=== PATIENT | male | born 1965 | race Caucasian/White ===

== ENCOUNTER → 2016-09-15 | Outpatient (CLI) | payer BC ==
--- NOTE | 2016-09-15 12:54 | XR ---
EXAMINATION TYPE: XR foot complete bilateral DATE OF EXAM ORDERED: 09/15/2016 HISTORY: pain R52. COMPARISON: None. FINDINGS: There are minimal degenerative changes in the left first MTP joint. No fracture, dislocati on or other acute osseous lesion is seen. There are small Achilles spur seen arising from both calcan ei. No significant vascular calcification is seen. IMPRESSION: 1. NO ACUTE OSSEOUS LESION. 2. MINIMAL DEGENERATIVE CHANGE. 3. SMALL, BILATERAL ACHILLES SPURS.
== END | disposition home or self-care (01) ==
LOC: RADXRMAIN 11:57
PROVIDERS: ATTEND Family Medicine
DX: M77.51 Other enthesopathy of right foot and ankle (principal); M77.52 Other enthesopathy of left foot and ankle; M79.672 Pain in left foot

== ENCOUNTER 2017-02-12 08:15 | Day surgery (SDC) | payer BC ==
[2017-02-09 11:21] VITALS: BMI 32.1
[~2017-02-12 08:15] MED LIST: LACTATED RINGERS 1,000 ML IV SCH
[2017-02-12 08:36] VITALS: TEMP 97.8
[2017-02-12] MEDS ORDERED: LIDOCAINE 1% 20 ML VIAL (10MG/ML) FOR IV START INTRADERMA ONE (08:49)
[2017-02-12] MEDS ORDERED: PROPOFOL 10 MG/ML 20 ML VIAL IV ONE (08:52)
[2017-02-12] MEDS ORDERED: LIDOCAINE 1% INJ 10MG/ML (20 ML MDV) ONE (08:52)
[2017-02-12 08:55] LABS: Glucose,Whole Blood 171 mg/dL (75-99)
--- NOTE | 2017-02-12 08:55 | P.GSHP ---
History of Present Illness H&P Date: 02/12/17 Chief Complaint: Colon cancer screening Patient here today for colonoscopy. He has not had one previously. No bowel related complaints. No family history of colon cancer Past Medical History Past Medical History: Diabetes Mellitus, GERD/Reflux History of Any Multi-Drug Resistant Organisms: None Reported Past Surgical History: No Surgical Hx Reported Additional Past Surgical History / Comment(s): skin graft Past Anesthesia/Blood Transfusion Reactions: No Reported Reaction Smoking Status: Never smoker - Past Family History Father Family Medical History: Cancer Sister(s) Family Medical History: Cancer Medications and Allergies Home Medications Medication Instructions Recorded Confirmed Type Insulin Aspart [NovoLOG Flexpen] 11 unit SQ PC-TID 12/02/15 02/12/17 History Pantoprazole [Protonix] 1 tab PO DAILY 12/02/15 02/12/17 History Insulin Degludec [Tresiba 32 units INJ QAM 02/09/17 02/12/17 History Flextouch U-100] metFORMIN HCL ER [Glucophage Xr] 500 mg PO DAILY 02/09/17 02/12/17 History Allergies Allergy/AdvReac Type Severity Reaction Status Date / Time No Known Allergies Allergy Verified 02/12/17 08:40 Surgical - Exam Vital Signs Temp Pulse Resp BP Pulse Ox 97.8 F 72 16 130/81 94 L 02/12/17 08:34 02/12/17 08:34 02/12/17 08:34 02/12/17 08:34 02/12/17 08:34 Physical exam: General: Well-developed, well-nourished HEENT: Normocephalic, sclerae nonicteric Abdomen: Nontender, nondistended Extremities: No edema Neuro: Alert and oriented Assessment and Plan (1) Colon cancer screening Narrative/Plan: Will proceed with colonoscopy at this time Current Visit: Yes Status: Acute Code(s): Z12.11 - ENCOUNTER FOR SCREENING FOR MALIGNANT NEOPLASM OF COLON SNOMED Code(s): 702395999
[2017-02-12] MEDS ORDERED: LACTATED RINGERS 1,000 ML IV ONE (09:09)
[2017-02-12 09:10] VITALS: RESP 15
[2017-02-12 09:15] LABS: Glucose,Whole Blood 175 mg/dL (75-99)
[2017-02-12 09:20] VITALS: BP 124/88; PULSE 84
--- NOTE | 2017-02-12 09:22 | P.PCN ---
Date of Procedure: 02/12/17 Procedure(s) Performed: PREOPERATIVE DIAGNOSIS: Colon cancer screening POSTOPERATIVE DIAGNOSIS: Normal exam PROCEDURE: Colonoscopy ANESTHESIA: MAC SURGEON: Hollis Alexandre M.D. SPECIMENS: None ENDOSCOPIC PROCEDURE: The patient was placed on the endoscopy table in the left decubitus position. The Olympus colonoscope was inserted into the anus and passed under direct visualization to the base of the cecum. The appendiceal orifice was visualized. From that point the scope was slowly withdrawn inspecting all surfaces carefully. There were no neoplastic inflammatory or polypoid lesions throughout the cecum, ascending, transverse, descending, sigmoid and rectum. There was no diverticulosis noted. Digital rectal examination was normal. The patient was taken to the recovery room in stable condition per anesthesia guidelines. RECOMMENDATIONS: Increase fiber. Follow-up colonoscopy in 10 years.
== END 2017-02-12 09:42 | disposition home or self-care (01) ==
LOC: ORWHC2ENDO 08:15
PROVIDERS: ATTEND Surgery
DX: Z12.11 Encounter for screening for malignant neoplasm of colon (principal); E11.9 Type 2 diabetes mellitus without complications; K21.9 Gastro-esophageal reflux disease without esophagitis; Z79.4 Long term (current) use of insulin; Z79.899 Other long term (current) drug therapy
CPT/HCPCS: J2001; J2704; G0121; 45378

== ENCOUNTER 2019-10-05 07:17 | Day surgery (SDC) | payer BC ==
[2019-10-03 13:51] VITALS: BMI 30.7
[2019-10-05 07:39] VITALS: TEMP 97.6
[2019-10-05 07:47] LABS: Glucose,Whole Blood 169 mg/dL (75-99)
[2019-10-05] MEDS ORDERED: PROPOFOL 10 MG/ML 20 ML VIAL IV ONE (07:56)
[2019-10-05] MEDS ORDERED: fentaNYL (PF) 50 MCG/ML 2 ML AMP ONE (07:56)
[2019-10-05] MEDS ORDERED: MIDAZOLAM 2 MG/2 ML VIAL ONE (07:56)
--- NOTE | 2019-10-05 07:58 | P.GSHP ---
History of Present Illness H&P Date: 10/05/19 Chief Complaint: GERD This a 53-year-old male presents today for EGD. He's had issues with GERD. Past Medical History Past Medical History: Diabetes Mellitus, GERD/Reflux Additional Past Medical History / Comment(s): states "unable to clear throat" History of Any Multi-Drug Resistant Organisms: None Reported Past Surgical History: No Surgical Hx Reported Additional Past Surgical History / Comment(s): skin graft Past Anesthesia/Blood Transfusion Reactions: No Reported Reaction Additional Past Anesthesia/Blood Transfusion Reaction / Comment(s): no hx blood transfusion Smoking Status: Never smoker - Past Family History Father Family Medical History: Cancer Additional Family Medical History / Comment(s): skin Sister(s) Family Medical History: Cancer Additional Family Medical History / Comment(s): female Medications and Allergies Home Medications Medication Instructions Recorded Confirmed Type Pantoprazole [Protonix] 40 mg PO DAILY 12/02/15 10/05/19 History Insulin Degludec [Tresiba 32 units INJ QAM 02/09/17 10/05/19 History Flextouch U-100] metFORMIN HCL ER [Glucophage Xr] 500 mg PO BID 02/09/17 10/05/19 History Empagliflozin [Jardiance] 25 mg PO DAILY 10/03/19 10/05/19 History Allergies Allergy/AdvReac Type Severity Reaction Status Date / Time No Known Allergies Allergy Verified 10/05/19 07:34 Surgical - Exam Vital Signs Temp Pulse Resp BP Pulse Ox 97.6 F 81 16 152/97 95 10/05/19 07:27 10/05/19 07:27 10/05/19 07:27 10/05/19 07:27 10/05/19 07:27 - General well developed, well nourished, no distress - Eyes PERRL - ENT normal pinna - Neck no masses - Respiratory normal expansion - Cardiovascular Rhythm: regular - Abdomen Abdomen: soft, non tender Results - Labs Abnormal Lab Results - Last 24 Hours (Table) 10/05/19 Range/Units 07:43 POC Glucose (mg/dL) 169 H (75-99) mg/dL Assessment and Plan Assessment: GERD. We'll perform EGD.
--- NOTE | 2019-10-05 08:04 | P.OP ---
Date of Procedure: 10/05/19 Preoperative Diagnosis: GERD Postoperative Diagnosis: Antral gastritis Fundal polyp Minimal esophagitis Procedure(s) Performed: EGD Anesthesia: MAC Surgeon: Zac Serna Pathology: other (Antrum, fundal polyp, esophagus) Condition: stable Disposition: PACU Description of Procedure: The patient's placed on the endoscopy table in the lateral position. He received IV sedation. The gastroscope placed oropharynx and passed in the esophagus and stomach. Scope was placed through the pylorus. The first and second portion duodenum. Normal. Scope summer back the antrum this. Mildly inflamed. A biopsies performed. Scope was retroflexed and there were some benign-appearing polyps in the fundus. A polyp was biopsied.. The GE junction was at 40 cms. The distal esophagus appeared inflamed a biopsies performed. Proximal esophagus appeared normal. Scope withdrawn for patient.
[2019-10-05 08:09] LABS: Glucose,Whole Blood 164 mg/dL (75-99)
[2019-10-05 08:24] VITALS: BP 162/91; PULSE 77; RESP 18
== END 2019-10-05 08:40 | disposition home or self-care (01) ==
LOC: ORWHC2ENDO 07:17
PROVIDERS: ATTEND Surgery
DX: K29.50 Unspecified chronic gastritis without bleeding (principal); K31.7 Polyp of stomach and duodenum; K21.0 Gastro-esophageal reflux disease with esophagitis; E11.9 Type 2 diabetes mellitus without complications; Z80.8 Family history of malignant neoplasm of other organs or systems; Z79.84 Long term (current) use of oral hypoglycemic drugs; Z79.899 Other long term (current) drug therapy
CPT/HCPCS: 88305; 43239; J2250; J3010; J2704

== ENCOUNTER 2020-11-03 13:44 | Emergency (ER) | payer BC ==
[2020-11-03 13:48] VITALS: TEMP 97.8
[2020-11-03] MEDS ORDERED: ONDANSETRON 4 MG/2 ML VIAL IVP STA (14:04)
[2020-11-03] MEDS ORDERED: KETOROLAC 15 MG/ML 1 ML VIAL IVP STA (14:04)
[2020-11-03] MEDS ORDERED: SODIUM CHLORIDE 0.9% 1,000 ML IV STA (14:04)
--- NOTE | 2020-11-03 14:05 | ED ---
Abdominal Pain HPI - General Chief Complaint: Abdominal Pain Stated Complaint: Back Pain Time Seen by Provider: 11/03/20 13:50 Source: patient, RN notes reviewed Mode of arrival: ambulatory Limitations: no limitations - History of Present Illness Initial Comments: Patient is a 54-year-old male that presents to the emergency department complaining of right flank pain with radiation to his groin. He also noted that he was checking his testicles this morning when he thought that his right one was slightly larger than his left one. He noted that he does have a history of kidney stones but has not had any in a while. He denied any injury or trauma to his low back. He denied any other symptoms or complaints. He noted that his pain was approximate 78 out of 10 with no relief from at home medications. He denied any chest pain shortness of breath constipation diarrhea fever fatigue chills. - Related Data Home Medications Medication Instructions Recorded Confirmed Pantoprazole [Protonix] 40 mg PO DAILY 12/02/15 10/05/19 Insulin Degludec [Tresiba 32 units INJ QAM 02/09/17 10/05/19 Flextouch U-100] metFORMIN HCL ER [Glucophage Xr] 500 mg PO BID 02/09/17 10/05/19 Empagliflozin [Jardiance] 25 mg PO DAILY 10/03/19 10/05/19 Allergies Allergy/AdvReac Type Severity Reaction Status Date / Time No Known Allergies Allergy Verified 11/03/20 13:46 Review of Systems ROS Statement: Those systems with pertinent positive or pertinent negative responses have been documented in the HPI. ROS Other: All systems not noted in ROS Statement are negative. Past Medical History Past Medical History: Diabetes Mellitus, GERD/Reflux Additional Past Medical History / Comment(s): states "unable to clear throat" History of Any Multi-Drug Resistant Organisms: None Reported Past Surgical History: No Surgical Hx Reported Additional Past Surgical History / Comment(s): skin graft Past Anesthesia/Blood Transfusion Reactions: No Reported Reaction Additional Past Anesthesia/Blood Transfusion Reaction / Comment(s): no hx blood transfusion Past Psychological History: No Psychological Hx Reported Smoking Status: Never smoker Past Alcohol Use History: Daily Past Drug Use History: None Reported - Past Family History Father Family Medical History: Cancer Additional Family Medical History / Comment(s): skin Sister(s) Family Medical History: Cancer Additional Family Medical History / Comment(s): female General Exam Limitations: no limitations General appearance: alert, in no apparent distress Head exam: Present: atraumatic, normocephalic, normal inspection Eye exam: Present: normal appearance, PERRL, EOMI. Absent: scleral icterus, conjunctival injection, periorbital swelling Neck exam: Present: normal inspection Respiratory exam: Present: normal lung sounds bilaterally. Absent: respiratory distress, wheezes, rales, rhonchi, stridor Cardiovascular Exam: Present: regular rate, normal rhythm, normal heart sounds. Absent: systolic murmur, diastolic murmur, rubs, gallop, clicks GI/Abdominal exam: Present: soft, normal bowel sounds. Absent: distended, tenderness, guarding, rebound, rigid exam: Present: normal inspection, circumcision. Absent: testicular tenderness, urethral discharge, scrotal swelling Extremities exam: Present: normal inspection, full ROM, normal capillary refill. Absent: tenderness, pedal edema, joint swelling, calf tenderness Neurological exam: Present: alert, oriented X3 Psychiatric exam: Present: normal affect, normal mood Skin exam: Present: warm, dry, intact, normal color. Absent: rash Course Vital Signs 11/03/20 11/03/20 13:46 16:42 Temperature 97.8 F Pulse Rate 98 76 Respiratory 16 20 Rate Blood Pressure 181/94 156/87 O2 Sat by Pulse 97 96 Oximetry Medical Decision Making - Medical Decision Making 34-year-old male complaining of right flank pain with some radiation to his groin. Labs, 1 L normal saline, 4 mg of Zofran, 50 mg of Toradol ordered. CT the abdomen and pelvis, scrotal ultrasound ordered. Computed tomography scan and scrotal ultrasound negative for any acute process. Labs unremarkable. Case discussed with Dr. Bautista, patient can discharge home with follow-up primary care. - Lab Data Result diagrams: 11/03/20 14:06 11/03/20 14:06 Lab Results 11/03/20 11/03/20 11/03/20 Range/Units 14:06 14:06 14:06 WBC 8.6 (3.8-10.6) k/uL RBC 4.84 (4.30-5.90) m/uL Hgb 16.8 (13.0-17.5) gm/dL Hct 46.1 (39.0-53.0) % MCV 95.1 (80.0-100.0) fL MCH 34.8 (25.0-35.0) pg MCHC 36.5 (31.0-37.0) g/dL RDW 12.3 (11.5-15.5) % Plt Count 203 (150-450) k/uL MPV 7.4 Neutrophils % 71 % Lymphocytes % 22 % Monocytes % 4 % Eosinophils % 2 % Basophils % 1 % Neutrophils # 6.1 (1.3-7.7) k/uL Lymphocytes # 1.9 (1.0-4.8) k/uL Monocytes # 0.3 (0-1.0) k/uL Eosinophils # 0.2 (0-0.7) k/uL Basophils # 0.1 (0-0.2) k/uL Hyperchromasia Slight Sodium 133 L (137-145) mmol/L Potassium 4.2 (3.5-5.1) mmol/L Chloride 99 (98-107) mmol/L Carbon Dioxide 25 (22-30) mmol/L Anion Gap 9 mmol/L BUN 12 (9-20) mg/dL Creatinine 0.77 (0.66-1.25) mg/dL Est GFR (CKD-EPI)AfAm >90 (>60 ml/min/1.73 sqM) Est GFR (CKD-EPI)NonAf >90 (>60 ml/min/1.73 sqM) Glucose 337 H (74-99) mg/dL Calcium 9.0 (8.4-10.2) mg/dL Total Bilirubin 0.6 (0.2-1.3) mg/dL AST 24 (17-59) U/L ALT 19 (4-49) U/L Alkaline Phosphatase 131 H (38-126) U/L Total Protein 6.7 (6.3-8.2) g/dL Albumin 4.0 (3.5-5.0) g/dL Amylase 60 (30-110) U/L Lipase 171 (23-300) U/L Urine Color Light Yellow Urine Appearance Clear (Clear) Urine pH 5.0 (5.0-8.0) Ur Specific [place] 1.031 (1.001-1.035) Urine Protein Negative (Negative) Urine Glucose (UA) 4+ H (Negative) Urine Ketones Negative (Negative) Urine Blood Negative (Negative) Urine Nitrite Negative (Negative) Urine Bilirubin Negative (Negative) Urine Urobilinogen <2.0 (<2.0) mg/dL Ur Leukocyte Esterase Negative (Negative) - Radiology Data Radiology results: report reviewed, image reviewed Scrotal ultrasound: No testicular torsion or mass. No free fluid. CT of the abdomen and pelvis: Negative computed tomography scan of the abdomen and pelvis per minimal subsegmental atelectasis at the lung bases. Disposition Clinical Impression: Flank pain, Right testicular pain Disposition: HOME SELF-CARE Condition: Stable Instructions (If sedation given, give patient instructions): Abdominal Pain (ED) Additional Instructions: Please return to the Emergency Department if symptoms worsen or any other concerns. Follow-up with primary care in the next 1-2 days. Increase oral fluids take ibuprofen as needed for pain. For any potential stones that did not show up on computed tomography scan. Is patient prescribed a controlled substance at d/c from ED?: No Referrals: Bebo Kennedy MD [Primary Care Provider] - 1-2 days Time of Disposition: 17:04
[2020-11-03 14:19] LABS: Basophils # (A) 0.1 k/uL (0-0.2); Basophils % (A) 1 %; Eosinophils # (A) 0.2 k/uL (0-0.7); Eosinophils % (A) 2 %; HCT 46.1 % (39.0-53.0); HGB 16.8 gm/dL (13.0-17.5); Hyperchromasia Slight; Lymphocytes # (A) 1.9 k/uL (1.0-4.8); Lymphocytes % (A) 22 %; MCH 34.8 pg (25.0-35.0); MCHC 36.5 g/dL (31.0-37.0); MCV 95.1 fL (80.0-100.0); Mean Platelet Volume 7.4; Monocytes # (A) 0.3 k/uL (0-1.0); Monocytes % (A) 4 %; Neutrophils # (A) 6.1 k/uL (1.3-7.7); Neutrophils % (A) 71 %; Platelet Count 203 k/uL (150-450); RBC 4.84 m/uL (4.30-5.90); RDW 12.3 % (11.5-15.5); WBC 8.6 k/uL (3.8-10.6)
[2020-11-03 14:28] LABS: ALT 19 U/L (4-49); AST 24 U/L (17-59); African American GFR (CKD) >90 (>60 ml/min/1.73 sqM); Alkaline Phosphatase 131 U/L (38-126); Amylase 60 U/L (30-110); Anion Gap 9 mmol/L; Blood Urea Nitrogen 12 mg/dL (9-20); Carbon Dioxide 25 mmol/L (22-30); Chloride 99 mmol/L (98-107); Glucose 337 mg/dL (74-99); Lipase 171 U/L (23-300); Non-African American GFR(CKD) >90 (>60 ml/min/1.73 sqM); Potassium 4.2 mmol/L (3.5-5.1); Sodium 133 mmol/L (137-145); Total Bilirubin 0.6 mg/dL (0.2-1.3); Total Protein 6.7 g/dL (6.3-8.2)
[2020-11-03 14:35] LABS: Appearance,Urine Clear (Clear); Bilirubin,Urine Negative (Negative); Blood,Urine Negative (Negative); Color,Urine Light Yellow; Glucose,Urine (UA) 4+ (Negative); Ketones,Urine Negative (Negative); Leukocyte Esterase,Urine Negative (Negative); Nitrite,Urine Negative (Negative); Protein,Urine Negative (Negative); Specific Gravity,Urine 1.031 (1.001-1.035); Urobilinogen,Urine <2.0 mg/dL (<2.0)
--- NOTE | 2020-11-03 15:58 | CT ---
EXAMINATION TYPE: CT abdomen pelvis w con DATE OF EXAM: 11/03/2020 COMPARISON: None HISTORY: Right flank pain. CT DLP: 1406.6 mGycm Automated exposure control for dose reduction was used. CONTRAST: Performed with IV Contrast, patient injected with 100 mL of Isovue 300. Images obtained from the diaphragm to the floor the pelvis with IV contrast. The lung bases show minimal subsegmental atelectasis. Heart size is normal. There is no pericardial e ffusion. Liver spleen stomach pancreas gallbladder appear normal. The bile ducts are not dilated. There is no adrenal mass. Kidneys show satisfactory contrast opacification. There is no hydronephrosi s. There is no retroperitoneal adenopathy. Ureters are not dilated. There is smooth distention of the urinary bladder. There is no inguinal hernia. There is no free fluid in the pelvis. There is no evid ence of pelvic mass. There is no mesenteric edema. There is no ascites or free air. There is no sign of a bowel obstructio n. Appendix is lateral and appears normal. The lumbar vertebra have normal alignment. Disc spaces are fairly normal. Posterior elements are inta ct. There is no compression fracture. The bony pelvis is intact. The hip joints are intact. There is no hip dysplasia. Delayed images show normal renal excretion. IMPRESSION: Negative CT scan of the abdomen and pelvis. Minimal subsegmental atelectasis at the lung bases.
--- NOTE | 2020-11-03 16:42 | US ---
EXAMINATION TYPE: US scrotum with doppler. Grayscale and color Doppler Duplex imaging performed of domingo mulligan scrotum. DATE OF EXAM: 11/03/2020 COMPARISON: CLINICAL HISTORY: right testicle pain, minimal swelling. Right flank pain that radiates to testicle. No injury or trauma. EXAM MEASUREMENTS: TESTICLES: Right Testicle: 3.6 x 4.4 x 2.5 cm Left Testicle: 4.3 x 3.5 x 2.2 cm EPIDIDYMIS HEAD: Right Epididymis: 1.1 x 0.8 x 0.8 cm Left Epididymis: 1.2 x 1.1 x 0.7 cm Doppler performed to assess for testicular vascularity; good bilateral color flow and waveforms are s een. There is no evidence of testicular torsion. Presence of hydroceles: no Presence of varicoceles: few on the right IMPRESSION: No testicular torsion or mass. No free fluid.
[2020-11-03 16:43] VITALS: BP 156/87; PULSE 76; RESP 20
[2020-11-03] MEDS ORDERED: MORPHINE SULFATE 4 MG/ML SYRINGE IVP STA (17:07)
== END 2020-11-03 17:18 | disposition home or self-care (01) ==
LOC: EC 13:44
DX: N50.811 Right testicular pain (principal); R10.9 Unspecified abdominal pain; K21.9 Gastro-esophageal reflux disease without esophagitis; Z79.899 Other long term (current) drug therapy
CPT/HCPCS: 36415; 80053; 82150; 83690; 85025; 81003; 93975; 76870; 74177; 99284; 96374; 96375; 96361; J2270; J2405; J1885; Q9967

== ENCOUNTER 2021-05-02 07:00 | Inpatient (IN) | payer BC ==
[2021-05-02] MEDS ORDERED: SODIUM CHLORIDE 0.9% 1,000 ML IV STA (07:29)
[2021-05-02] MEDS ORDERED: SODIUM CHLORIDE 0.9% 500 ML 500 ML IV STA (07:29)
[2021-05-02] MEDS ORDERED: HYDROmorphone 0.5 MG/0.5 ML SYRINGE IVP STA (07:29)
[2021-05-02] MEDS ORDERED: hydrALAZINE HCL 20 MG/ML 1 ML VIAL IVP STA (07:34)
[2021-05-02 08:04] LABS: Basophils % (A) 0 %; Eosinophils # (A) 0.3 k/uL (0-0.7); Eosinophils % (A) 3 %; HCT 50.8 % (39.0-53.0); HGB 17.6 gm/dL (13.0-17.5); Lymphocytes # (A) 1.4 k/uL (1.0-4.8); Lymphocytes % (A) 17 %; MCH 34.9 pg (25.0-35.0); MCHC 34.7 g/dL (31.0-37.0); MCV 100.5 fL (80.0-100.0); Mean Platelet Volume 7.3; Monocytes # (A) 0.4 k/uL (0-1.0); Monocytes % (A) 4 %; Neutrophils # (A) 6.3 k/uL (1.3-7.7); Neutrophils % (A) 75 %; Platelet Count 167 k/uL (150-450); RBC 5.05 m/uL (4.30-5.90); RDW 13.2 % (11.5-15.5); WBC 8.4 k/uL (3.8-10.6)
[2021-05-02 08:14] LABS: ALT 17 U/L (4-49); AST 22 U/L (17-59); African American GFR (CKD) >90 (>60 ml/min/1.73 sqM); Albumin 4.3 g/dL (3.5-5.0); Alcohol <10 mg/dL; Alkaline Phosphatase 120 U/L (38-126); Amylase 102 U/L (30-110); Anion Gap 8 mmol/L; Blood Urea Nitrogen 15 mg/dL (9-20); Calcium 9.4 mg/dL (8.4-10.2); Carbon Dioxide 26 mmol/L (22-30); Chloride 101 mmol/L (98-107); Glucose 160 mg/dL (74-99); Lipase 798 U/L (23-300); Non-African American GFR(CKD) >90 (>60 ml/min/1.73 sqM); Potassium 4.2 mmol/L (3.5-5.1); Sodium 135 mmol/L (137-145); Total Bilirubin 1.6 mg/dL (0.2-1.3); Total Protein 7.5 g/dL (6.3-8.2)
--- NOTE | 2021-05-02 08:20 | XR ---
KUB HISTORY: Abdominal pain Frontal KUB and [address] scan dated 11/03/2020 There are phleboliths present within the pelvis. No evident bowel obstruction or pneumoperitoneum. Rambo ne mineralization is normal. Lung bases are clear. Degenerative disc changes are noted in the visuali zed spine. IMPRESSION: No significant abnormalities evident.
--- NOTE | 2021-05-02 08:40 | ED ---
General Adult HPI - General Chief complaint: Abdominal Pain Stated complaint: Abd Pain Time Seen by Provider: 05/02/21 07:05 Source: patient, RN notes reviewed, old records reviewed Mode of arrival: ambulatory Limitations: no limitations - History of Present Illness Initial comments: This is a 55-year-old male who presents emergency department stating that he has epigastric abdominal pain which radiates to his back. Patient states he has had pancreatitis before because he is a drinker. Patient states she has been drinking much more lately. Patient states she doesn't really have a reason for his increased drinking he just is drinking more. Patient states his last drink was yesterday. Patient denies any chest pain difficulty breathing shortness of breath. Patient denies any recent fever chills or cough per patient denies any vomiting per patient denies nausea patient patient denies lightheadedness or dizziness. Patient denies any headache patient denies numbness weakness. - Related Data Home Medications Medication Instructions Recorded Confirmed Pantoprazole [Protonix] 40 mg PO DAILY 12/02/15 10/05/19 Insulin Degludec [Tresiba 32 units INJ QAM 02/09/17 10/05/19 Flextouch U-100] metFORMIN HCL ER [Glucophage Xr] 500 mg PO BID 02/09/17 10/05/19 Empagliflozin [Jardiance] 25 mg PO DAILY 10/03/19 10/05/19 Allergies Allergy/AdvReac Type Severity Reaction Status Date / Time No Known Allergies Allergy Verified 05/02/21 07:06 Review of Systems ROS Statement: Those systems with pertinent positive or pertinent negative responses have been documented in the HPI. ROS Other: All systems not noted in ROS Statement are negative. Past Medical History Past Medical History: Diabetes Mellitus, GERD/Reflux Additional Past Medical History / Comment(s): states "unable to clear throat" History of Any Multi-Drug Resistant Organisms: None Reported Past Surgical History: No Surgical Hx Reported Additional Past Surgical History / Comment(s): skin graft Past Anesthesia/Blood Transfusion Reactions: No Reported Reaction Additional Past Anesthesia/Blood Transfusion Reaction / Comment(s): no hx blood transfusion Past Psychological History: No Psychological Hx Reported Smoking Status: Never smoker Past Alcohol Use History: Daily Past Drug Use History: None Reported - Past Family History Father Family Medical History: Cancer Additional Family Medical History / Comment(s): skin Sister(s) Family Medical History: Cancer Additional Family Medical History / Comment(s): female General Exam - General Exam Comments Initial Comments: GENERAL: Patient is well-developed and well-nourished. Patient is nontoxic and well- hydrated and is in mild distress. ENT: Neck is soft and supple. No significant lymphadenopathy is noted. Oropharynx is clear. Moist mucous membranes. Neck has full range of motion without eliciting any pain. EYES: The sclera were anicteric and conjunctiva were pink and moist. Extraocular movements were intact and pupils were equal round and reactive to light. Eyelids were unremarkable. PULMONARY: Unlabored respirations. Good breath sounds bilaterally. No audible rales rhonchi or wheezing was noted. CARDIOVASCULAR: There is a regular rate and rhythm without any murmurs gallops or rubs. ABDOMEN: Patient has epigastric abdominal pain SKIN: Skin is clear with no lesions or rashes and otherwise unremarkable. NEUROLOGIC: Patient is alert and oriented x3. Cranial nerves II through XII are grossly intact. Motor and sensory are also intact. Normal speech, volume and content. Symmetrical smile. MUSCULOSKELETAL: Normal extremities with adequate strength and full range of motion. No lower extremity swelling or edema. No calf tenderness. LYMPHATICS: No significant lymphadenopathy is noted PSYCHIATRIC: Normal psychiatric evaluation. Limitations: no limitations Course Vital Signs 05/02/21 05/02/21 05/02/21 07:04 07:20 07:28 Temperature 98.2 F 97.7 F Pulse Rate 72 99 Respiratory 20 14 Rate Blood Pressure 153/100 139/107 164/94 O2 Sat by Pulse 97 97 Oximetry 05/02/21 05/02/21 08:24 09:14 Temperature Pulse Rate 84 87 Respiratory 16 Rate Blood Pressure 157/116 115/70 O2 Sat by Pulse 98 100 Oximetry Medical Decision Making - Medical Decision Making EKG shows normal sinus rhythm at 86 bpm [place] interval 150 QRS is 82 QT interval 364 QTC is 435 per patient's EKG shows no ST segment elevation or depression. I spoke with Dr. Kennedy and he agreed to admit the patient admitted the patient wrote admitting orders. - Lab Data Result diagrams: 05/02/21 07:47 05/02/21 07:47 Lab Results 05/02/21 05/02/21 05/02/21 Range/Units 07:47 07:47 07:55 WBC 8.4 (3.8-10.6) k/uL RBC 5.05 (4.30-5.90) m/uL Hgb 17.6 H (13.0-17.5) gm/dL Hct 50.8 (39.0-53.0) % MCV 100.5 H (80.0-100.0) fL MCH 34.9 (25.0-35.0) pg MCHC 34.7 (31.0-37.0) g/dL RDW 13.2 (11.5-15.5) % Plt Count 167 (150-450) k/uL MPV 7.3 Neutrophils % 75 % Lymphocytes % 17 % Monocytes % 4 % Eosinophils % 3 % Basophils % 0 % Neutrophils # 6.3 (1.3-7.7) k/uL Lymphocytes # 1.4 (1.0-4.8) k/uL Monocytes # 0.4 (0-1.0) k/uL Eosinophils # 0.3 (0-0.7) k/uL Basophils # 0.0 (0-0.2) k/uL Sodium 135 L (137-145) mmol/L Potassium 4.2 (3.5-5.1) mmol/L Chloride 101 (98-107) mmol/L Carbon Dioxide 26 (22-30) mmol/L Anion Gap 8 mmol/L BUN 15 (9-20) mg/dL Creatinine 0.86 (0.66-1.25) mg/dL Est GFR (CKD-EPI)AfAm >90 (>60 ml/min/1.73 sqM) Est GFR (CKD-EPI)NonAf >90 (>60 ml/min/1.73 sqM) Glucose 160 H (74-99) mg/dL Calcium 9.4 (8.4-10.2) mg/dL Total Bilirubin 1.6 H (0.2-1.3) mg/dL AST 22 (17-59) U/L ALT 17 (4-49) U/L Alkaline Phosphatase 120 (38-126) U/L Total Protein 7.5 (6.3-8.2) g/dL Albumin 4.3 (3.5-5.0) g/dL Amylase 102 (30-110) U/L Lipase 798 H (23-300) U/L Serum Alcohol <10 mg/dL Coronavirus (PCR) Not Detected (Not Detectd) Disposition Clinical Impression: Alcoholic pancreatitis Disposition: ADMITTED IP TO THIS HOSP Referrals: Bebo Kennedy MD [Primary Care Provider] - 1-2 days Time of Disposition: 10:13
[2021-05-02] MEDS ORDERED: SODIUM CHLORIDE 0.9% 1,000 ML IV ONE (10:13)
[2021-05-02 12:07] LABS: Appearance,Urine Clear (Clear); Bilirubin,Urine Negative (Negative); Blood,Urine Negative (Negative); Color,Urine Yellow; Glucose,Urine (UA) 4+ (Negative); Leukocyte Esterase,Urine Negative (Negative); Nitrite,Urine Negative (Negative); Protein,Urine Trace (Negative); Urobilinogen,Urine <2.0 mg/dL (<2.0)
[2021-05-02 12:23] LABS: Glucose,Whole Blood 97 mg/dL (75-99)
[2021-05-02 12:58] LABS: Specific Gravity,Urine 1.046 (1.001-1.035)
[2021-05-02 13:00] LABS: Ketones,Urine 2+ (Negative)
[2021-05-02] MEDS: HYDROmorphone 0.5 MG/0.5 ML SYRINGE IVP PRN ×2 (14:01→20:34)
[2021-05-02 17:29] LABS: Glucose,Whole Blood 56 mg/dL (75-99)
[2021-05-02] MEDS ORDERED: DEXTROSE 50% SYRINGE 50 ML IVP ONE ×2 (17:30→21:27)
[2021-05-02 17:55] LABS: Glucose,Whole Blood 131 mg/dL (75-99)
[2021-05-02 19:40] LABS: Glucose,Whole Blood 73 mg/dL (75-99)
[2021-05-02] MEDS: DEXTROSE 5%-0.9% NACL 1,000 ML IV SCH (20:30)
[2021-05-02 21:24] LABS: Glucose,Whole Blood 64 mg/dL (75-99)
[2021-05-02 21:57] LABS: Glucose,Whole Blood 142 mg/dL (75-99)
[2021-05-03 02:36] LABS: Glucose,Whole Blood 92 mg/dL (75-99)
[2021-05-03] MEDS: HYDROmorphone 0.5 MG/0.5 ML SYRINGE IVP PRN (02:58)
[2021-05-03 04:51] LABS: Glucose,Whole Blood 83 mg/dL (75-99)
[2021-05-03] MEDS: DEXTROSE 5%-0.9% NACL 1,000 ML IV SCH ×2 (07:13→17:32)
[2021-05-03 07:18] LABS: Glucose,Whole Blood 73 mg/dL (75-99)
[2021-05-03] MEDS ORDERED: DEXTROSE 50% SYRINGE 50 ML IVP STA (07:38)
[2021-05-03] MEDS: PANTOPRAZOLE 40 MG TABLET PO SCH (07:46)
[2021-05-03 11:03] LABS: Glucose,Whole Blood 78 mg/dL (75-99)
[2021-05-03 11:45] VITALS: BMI 29.9
[2021-05-03 12:06] LABS: Glucose,Whole Blood 85 mg/dL (75-99)
[2021-05-03] MEDS ORDERED: THIAMINE 100 MG/ML 2 ML VIAL IM STA (16:56)
[2021-05-03] MEDS ORDERED: LORazepam 2 MG/ML INJ IV PRN ×3 (16:56)
[2021-05-03 17:36] LABS: Glucose,Whole Blood 104 mg/dL (75-99)
--- NOTE | 2021-05-03 18:27 | P.HPIM ---
History of Present Illness H&P Date: 05/03/21 55-year-old male who presents emergency department stating that he has epigastric abdominal pain which radiates to his back. Patient states he has had pancreatitis before because he is a drinker. Patient states she has been drinking much more lately. Patient states she doesn't really have a reason for his increased drinking he just is drinking more. Patient states his last drink was yesterday. Patient denies any chest pain difficulty breathing shortness of breath. Patient denies any recent fever chills or cough per patient denies any vomiting per patient denies nausea patient patient denies lightheadedness or dizziness. Patient denies any headache patient denies numbness weakness. EKG shows normal sinus rhythm at 86 bpm AR interval 150 QRS is 82 QT interval 364 QTC is 435 per patient's EKG shows no ST segment elevation or depression. Review of Systems REVIEW OF SYSTEMS: CONSTITUTIONAL: No fever, no malaise, no fatigue. HEENT: No recent visual problems or hearing problems. Denied any sore throat. CARDIOVASCULAR: No chest pain, orthopnea, PND, no palpitations, no syncope. PULMONARY: No shortness of breath, no cough, no hemoptysis. GASTROINTESTINAL: No diarrhea, no nausea, no vomiting, no abdominal pain. NEUROLOGICAL: No headaches, no weakness, no numbness. HEMATOLOGICAL: Denies any bleeding or petechiae. GENITOURINARY: Denies any burning micturition, frequency, or urgency. MUSCULOSKELETAL/RHEUMATOLOGICAL: Denies any joint pain, swelling, or any muscle pain. ENDOCRINE: Denies any polyuria or polydipsia. The rest of the 14-point review of systems is negative. Past Medical History Past Medical History: Diabetes Mellitus, GERD/Reflux Additional Past Medical History / Comment(s): ETOH, pancreatitis, IDDM type II, occasional neuropathy R foot, past burn R foot/had skin grafting. History of Any Multi-Drug Resistant Organisms: None Reported Past Surgical History: Orthopedic Surgery Additional Past Surgical History / Comment(s): skin graft to R foot/L thigh skin donor, colonoscopy, L index finger crush injury with surgery. Past Anesthesia/Blood Transfusion Reactions: No Reported Reaction Additional Past Anesthesia/Blood Transfusion Reaction / Comment(s): no hx blood transfusion Smoking Status: Never smoker - Past Family History Father Family Medical History: Cancer Additional Family Medical History / Comment(s): Skin cancer. Father is . Sister(s) Family Medical History: Cancer Additional Family Medical History / Comment(s): female Mother Family Medical History: No Reported History Additional Family Medical History / Comment(s): Mother is 88yrs old Medications and Allergies Home Medications Medication Instructions Recorded Confirmed Type Pantoprazole [Protonix] 40 mg PO DAILY 12/02/15 05/02/21 History Empagliflozin [Jardiance] 25 mg PO DAILY 10/03/19 05/02/21 History Insulin Degludec [Tresiba 32 units SQ DAILY 05/02/21 05/02/21 History Flextouch U-200 Pen] metFORMIN HCL [Glucophage] 1,000 mg PO BID 05/02/21 05/02/21 History Allergies Allergy/AdvReac Type Severity Reaction Status Date / Time No Known Allergies Allergy Verified 05/02/21 07:06 Physical Exam Vitals: Vital Signs Temp Pulse Resp BP Pulse Ox 05/03/21 07:00 98.0 F 72 18 151/93 100 05/03/21 02:33 97.6 F 78 16 166/96 100 05/03/21 01:18 83 18 05/02/21 20:38 83 18 05/02/21 19:06 97.6 F 79 16 159/90 98 05/02/21 14:54 98.0 F 83 18 159/88 99 Intake and Output 05/02/21 05/03/21 05/03/21 22:59 06:59 14:59 Other: # Voids 1 2 1 Weight 97.522 kg PHYSICAL EXAMINATION: GENERAL: The patient is alert and oriented x3, not in any acute distress. Well developed, well nourished. HEENT: Pupils are round and equally reacting to light. EOMI. No scleral icterus. No conjunctival pallor. Normocephalic, atraumatic. No pharyngeal erythema. No thyromegaly. CARDIOVASCULAR: S1 and S2 present. No murmurs, rubs, or gallops. PULMONARY: Chest is clear to auscultation, no wheezing or crackles. ABDOMEN: Soft, nontender, nondistended, normoactive bowel sounds. No palpable organomegaly. MUSCULOSKELETAL: No joint swelling or deformity. EXTREMITIES: No cyanosis, clubbing, or pedal edema. NEUROLOGICAL: Gross neurological examination did not reveal any focal deficits. SKIN: No rashes. Results CBC & Chem 7: 05/02/21 07:47 05/02/21 07:47 Labs: Abnormal Lab Results - Last 24 Hours (Table) 05/02/21 05/02/21 05/02/21 Range/Units 17:28 17:53 19:38 POC Glucose (mg/dL) 56 L 131 H 73 L (75-99) mg/dL 05/02/21 05/02/21 05/03/21 Range/Units 21:23 21:56 07:02 POC Glucose (mg/dL) 64 L 142 H 73 L (75-99) mg/dL Thrombosis Risk Factor Assmnt - Choose All That Apply Any of the Below Risk Factors Present?: Yes Each Factor Represents 1 point: Age 41-60 years, Obesity (BMI >25) Other Risk Factors: No Other congenital or acquired thrombophilia - If yes, enter type in comment: No Thrombosis Risk Factor Assessment Total Risk Factor Score: 2 Thrombosis Risk Factor Assessment Level: Low Risk Assessment and Plan Assessment: 1. Alcoholic pancreatitis; patient remains nothing by mouth with IV fluids; we will plan to trend lipase levels and advance diet slowly once stable 2. Accelerated hypertension; history of hypertension; we will monitor blood pressure closely and treat with hydralazine 10 mg every 6 hours when necessary 3. EtOH abuse/withdrawal; remains on IV fluids; CIWA protocol with Ativan; thiamine and folic acid 4. Diabetes mellitus type 2; blood sugars remained soft; patient takes metformin and Jardiance and sent home along with Tresiba; we will hold off due to softer blood sugars; monitor Accu-Cheks before meals and at bedtime with insulin sliding scale 5. Gastroesophageal reflux disease/gastritis; continue with home dose of Protonix DVT prophylaxis; SCDs CODE STATUS; full code
[2021-05-03] MEDS: THIAMINE 100 MG TAB PO SCH (19:23)
[2021-05-03 20:25] LABS: Glucose,Whole Blood 179 mg/dL (75-99)
[2021-05-03 22:36] LABS: Glucose,Whole Blood 149 mg/dL (75-99)
[2021-05-04] MEDS: SODIUM CHLORIDE 0.9% 1,000 ML IV SCH ×2 (01:02→14:39)
[2021-05-04 02:35] LABS: Glucose,Whole Blood 86 mg/dL (75-99)
[2021-05-04 07:25] LABS: Glucose,Whole Blood 97 mg/dL (75-99)
[2021-05-04 08:47] VITALS: RESP 20; TEMP 98
[2021-05-04] MEDS: PANTOPRAZOLE 40 MG TABLET PO SCH (09:22)
[2021-05-04] MEDS: INSULIN ASPART (NovoLOG) 100 UNIT/ML VIAL SQ SCH ×2 (09:22→12:43)
[2021-05-04] MEDS: THIAMINE 100 MG TAB PO SCH (09:22)
[2021-05-04 11:18] LABS: African American GFR (CKD) 121.9 (60.0-200.0); Anion Gap 8.6 mmol/L (10.00-18.00); BUN/Creat Ratio 14.79 Ratio (12.00-20.00); Blood Urea Nitrogen 10.8 mg/dL (9.0-27.0); Calcium 8.7 mg/dL (8.7-10.3); Non-African American GFR(CKD) 105.2 (60.0-200.0); Potassium 4.6 mmol/L (3.5-5.5)
[2021-05-04 12:06] LABS: Glucose,Whole Blood 107 mg/dL (75-99)
[2021-05-04 14:30] VITALS: BP 157/78; PULSE 77
[2021-05-04 17:26] LABS: Glucose,Whole Blood 132 mg/dL (75-99)
== END 2021-05-04 18:10 | disposition home or self-care (01) | DRG 439 ==
LOC: EC 07:00 → 6NMEDSUR 10:26 → OBSVTOIN 05-03 14:43 → UNDODISOB 05-04 18:10
PROVIDERS: ADMIT Family Medicine; ATTEND Family Medicine
PROC: HZ2ZZZZ Detoxification Services for Substance Abuse Treatment (ICD-10-PCS; principal; 2021-05-03)
DX: K85.20 Alcohol induced acute pancreatitis without necrosis or infection (principal); F10.139 Alcohol abuse with withdrawal, unspecified; E11.40 Type 2 diabetes mellitus with diabetic neuropathy, unspecified; I10 Essential (primary) hypertension; K29.70 Gastritis, unspecified, without bleeding; Z20.822 Contact with and (suspected) exposure to COVID-19; K21.9 Gastro-esophageal reflux disease without esophagitis; Z79.4 Long term (current) use of insulin; Z79.899 Other long term (current) drug therapy; Z80.8 Family history of malignant neoplasm of other organs or systems
CPT/HCPCS: 36415; 74018; 80048; 80053; 80320; 81003; 82150; 83690; 85025; 87635; 93005

== ENCOUNTER 2021-09-23 09:57 | Inpatient (IN) | payer BC ==
[2021-09-23] MEDS ORDERED: NITROGLYCERIN SL TABS 0.4 MG TAB SUBLINGUAL STA (10:20)
[2021-09-23] MEDS ORDERED: ONDANSETRON 4 MG/2 ML VIAL IVP STA (10:20)
[2021-09-23] MEDS ORDERED: DIAZEPAM 5 MG/ML 2 ML INJ IVP STA (10:20)
[2021-09-23] MEDS ORDERED: ASPIRIN 81 MG PO STA (10:20)
--- NOTE | 2021-09-23 10:28 | ED ---
Chest Pain HPI - General Chief Complaint: Chest Pain Stated Complaint: Chest pain/ETOH Time Seen by Provider: 09/23/21 10:09 Source: patient, RN notes reviewed Mode of arrival: wheelchair Limitations: no limitations - History of Present Illness Initial Comments: 55-year-old male presented from it which he went chest pain, alcohol abuse. Patient states that he does not use alcohol in 2 days. Patient states he does have some withdrawal symptoms. He states he drinks at least a fifth a day plus some. Patient states that he has pressure in his chest up into his left side of his neck. Patient called police. Vascular emergency from. Patient does admit to some nausea, sweating episodes. He still has some mild pressure in his chest. Patient has a history of diabetes on insulin and oral medication. Patient states that his blood pressure is elevated but does not take any medications for hypertension or hyperlipidemia. - Related Data Home Medications Medication Instructions Recorded Confirmed Pantoprazole [Protonix] 40 mg PO DAILY 12/02/15 05/02/21 Empagliflozin [Jardiance] 25 mg PO DAILY 10/03/19 05/02/21 Insulin Degludec [Tresiba 32 units SQ DAILY 05/02/21 05/02/21 Flextouch U-200 Pen] metFORMIN HCL [Glucophage] 1,000 mg PO BID 05/02/21 05/02/21 Previous Rx's Medication Instructions Recorded Thiamine [Vitamin B-1] 100 mg PO BID-W/MEALS tab 05/04/21 Allergies Allergy/AdvReac Type Severity Reaction Status Date / Time No Known Allergies Allergy Verified 09/23/21 10:03 Review of Systems ROS Statement: Those systems with pertinent positive or pertinent negative responses have been documented in the HPI. ROS Other: All systems not noted in ROS Statement are negative. Past Medical History Past Medical History: Diabetes Mellitus, GERD/Reflux Additional Past Medical History / Comment(s): ETOH, pancreatitis, IDDM type II, occasional neuropathy R foot, past burn R foot/had skin grafting. History of Any Multi-Drug Resistant Organisms: None Reported Past Surgical History: Orthopedic Surgery Additional Past Surgical History / Comment(s): skin graft to R foot/L thigh skin donor, colonoscopy, L index finger crush injury with surgery. Past Anesthesia/Blood Transfusion Reactions: No Reported Reaction Additional Past Anesthesia/Blood Transfusion Reaction / Comment(s): no hx blood transfusion Past Psychological History: No Psychological Hx Reported Smoking Status: Never smoker Past Alcohol Use History: Abuse, Heavy Past Drug Use History: None Reported - Past Family History Father Family Medical History: Cancer Additional Family Medical History / Comment(s): Skin cancer. Father is . Sister(s) Family Medical History: Cancer Additional Family Medical History / Comment(s): female Mother Family Medical History: No Reported History Additional Family Medical History / Comment(s): Mother is 88yrs old General Exam Limitations: no limitations General appearance: alert, in no apparent distress Head exam: Present: atraumatic, normocephalic, normal inspection Eye exam: Present: normal appearance, PERRL, EOMI. Absent: scleral icterus, conjunctival injection, periorbital swelling ENT exam: Present: normal exam, mucous membranes moist Neck exam: Present: normal inspection, full ROM. Absent: tenderness, meningismus, lymphadenopathy Respiratory exam: Present: normal lung sounds bilaterally. Absent: respiratory distress, wheezes, rales, rhonchi, stridor Cardiovascular Exam: Present: regular rate, normal rhythm, normal heart sounds. Absent: systolic murmur, diastolic murmur, rubs, gallop, clicks GI/Abdominal exam: Present: soft, normal bowel sounds. Absent: distended, tenderness, guarding, rebound, rigid Neurological exam: Present: alert Skin exam: Present: warm, dry, intact, normal color. Absent: rash Course Vital Signs 09/23/21 09/23/21 09/23/21 10:00 10:36 11:28 Temperature 97.8 F Pulse Rate 82 75 69 Respiratory 14 18 18 Rate Blood Pressure 185/101 175/108 148/86 O2 Sat by Pulse 98 95 Oximetry Chest Pain MDM - MDM 55-year-old male present emergency department for chest discomfort. Patient does have a history of diabetes. Patient does have a significant lipase at 2400. Patient states. Patient will be admitted for acute pancreatitis, chest pain, alcohol withdrawal. Disposition Clinical Impression: Alcoholic pancreatitis, Alcohol withdrawal, Chest pain Disposition: ADMITTED IP TO THIS HOSP Condition: Fair Referrals: Bebo Kennedy MD [Primary Care Provider] - 1-2 days Time of Disposition: 11:44
[2021-09-23 10:48] LABS: Basophils # (A) 0.1 k/uL (0-0.2); Basophils % (A) 1 %; Eosinophils # (A) 0.1 k/uL (0-0.7); Eosinophils % (A) 2 %; HCT 47.3 % (39.0-53.0); HGB 16.2 gm/dL (13.0-17.5); Lymphocytes # (A) 1.3 k/uL (1.0-4.8); Lymphocytes % (A) 19 %; MCH 34.4 pg (25.0-35.0); MCHC 34.3 g/dL (31.0-37.0); MCV 100.2 fL (80.0-100.0); Mean Platelet Volume 7.2; Monocytes # (A) 0.3 k/uL (0-1.0); Monocytes % (A) 5 %; Neutrophils # (A) 5.2 k/uL (1.3-7.7); Neutrophils % (A) 73 %; Platelet Count 211 k/uL (150-450); RBC 4.72 m/uL (4.30-5.90); RDW 12.6 % (11.5-15.5); WBC 7.1 k/uL (3.8-10.6)
[2021-09-23 11:04] LABS: ALT 19 U/L (4-49); AST 24 U/L (17-59); African American GFR (CKD) >90 (>60 ml/min/1.73 sqM); Albumin 4.2 g/dL (3.5-5.0); Alcohol <10 mg/dL; Alkaline Phosphatase 79 U/L (38-126); Anion Gap 9 mmol/L; Blood Urea Nitrogen 20 mg/dL (9-20); Carbon Dioxide 26 mmol/L (22-30); Chloride 103 mmol/L (98-107); Glucose 135 mg/dL (74-99); Non-African American GFR(CKD) >90 (>60 ml/min/1.73 sqM); Potassium 4.5 mmol/L (3.5-5.1); Sodium 138 mmol/L (137-145); Total Bilirubin 1.3 mg/dL (0.2-1.3); Total Protein 7.1 g/dL (6.3-8.2)
--- NOTE | 2021-09-23 11:16 | XR ---
EXAMINATION TYPE: XR chest 2V DATE OF EXAM: 09/23/2021 COMPARISON: None HISTORY: 55-year-old male with chest pain TECHNIQUE: PA and lateral views FINDINGS: The cardiomediastinal silhouette, aorta, and pulmonary vasculature are within normal limits. Some str alise atelectasis in lower lungs. Otherwise, lungs and pleural spaces are clear. IMPRESSION: No acute cardiopulmonary process.
[2021-09-23 11:18] LABS: Lipase 2434 U/L (23-300)
[2021-09-23 11:21] LABS: Partial Thromboplastin Time 22.3 sec (22.0-30.0); Prothrombin Time 10.9 sec (9.0-12.0)
[2021-09-23] MEDS ORDERED: SODIUM CHLORIDE 0.9% 2,000 ML IV ONE (11:45)
[2021-09-23] MEDS ORDERED: NITROGLYCERIN SL TABS 0.4 MG TAB SUBLINGUAL PRN (11:46)
[2021-09-23] MEDS: SODIUM CHLORIDE 0.9% 1,000 ML IV SCH (12:24)
[2021-09-23] MEDS: HYDROmorphone 0.5 MG/0.5 ML SYRINGE IVP PRN ×2 (14:16→18:28)
[2021-09-23] MEDS ORDERED: LORazepam 2 MG/ML INJ IV PRN ×2 (21:46)
[2021-09-23] MEDS: THIAMINE 100 MG TAB PO SCH (22:06)
[2021-09-23] MEDS: LORazepam 2 MG/ML INJ IV PRN (23:39)
[2021-09-24] MEDS: HYDROmorphone 0.5 MG/0.5 ML SYRINGE IVP PRN (03:54)
[2021-09-24 06:03] LABS: Glucose,Whole Blood 68 mg/dL (75-99)
[2021-09-24 06:17] LABS: Glucose,Whole Blood 72 mg/dL (75-99)
[2021-09-24] MEDS: THIAMINE 100 MG TAB PO SCH ×2 (06:42→17:25)
[2021-09-24] MEDS: PANTOPRAZOLE 40 MG TABLET PO SCH (06:42)
[2021-09-24] MEDS ORDERED: metFORMIN 500 MG TAB PO SCH (07:30)
--- NOTE | 2021-09-24 08:39 | P.HPIM ---
History of Present Illness H&P Date: 09/24/21 Chief Complaint: Chest pain. This is a history and physical an 55-year-old white male with known history of diabetes hypertension and chronic alcoholism. He is been struggling recently with his alcoholism and states she was arrested this past weekend. He came in today because of syncope and chest pain. Workup shows acute pancreatitis element. He states minimal pain and even aided to reduce hours prior to coming to the hospital. The patient is now seemingly stable. Some withdrawal elements are noted. No diarrhea. He is lucid this morning. Review of Systems Constitutional: Denies chills, Denies fever Eyes: denies blurred vision, denies pain Ears, nose, mouth and throat: Denies headache, Denies sore throat Cardiovascular: Reports as per HPI, Reports chest pain Past Medical History Past Medical History: Diabetes Mellitus, GERD/Reflux Additional Past Medical History / Comment(s): ETOH, pancreatitis, IDDM type II, occasional neuropathy R foot, past burn R foot/had skin grafting. History of Any Multi-Drug Resistant Organisms: None Reported Past Surgical History: Orthopedic Surgery Additional Past Surgical History / Comment(s): skin graft to R foot/L thigh skin donor, colonoscopy, L index finger crush injury with surgery. Past Anesthesia/Blood Transfusion Reactions: No Reported Reaction Additional Past Anesthesia/Blood Transfusion Reaction / Comment(s): no hx blood transfusion Past Psychological History: No Psychological Hx Reported Additional Psychological History / Comment(s): Pt resides with his spouse. He is independent. Smoking Status: Never smoker Past Alcohol Use History: Abuse, Heavy Additional Past Alcohol Use History / Comment(s): 1/5 bottle of liquor a day and sometimes more. Past Drug Use History: None Reported - Past Family History Father Family Medical History: Cancer Additional Family Medical History / Comment(s): Skin cancer. Father is . Sister(s) Family Medical History: Cancer Additional Family Medical History / Comment(s): female Mother Family Medical History: No Reported History Additional Family Medical History / Comment(s): Mother is 88yrs old Medications and Allergies Home Medications Medication Instructions Recorded Confirmed Type Pantoprazole [Protonix] 40 mg PO DAILY 12/01/09/23/21 History Empagliflozin [Jardiance] 25 mg PO DAILY 10/03/19 09/23/21 History Insulin Degludec [Tresiba 32 units SQ DAILY 05/02/21 09/23/21 History Flextouch U-200 Pen] metFORMIN HCL [Glucophage] 1,000 mg PO BID-W/MEALS 05/02/21 09/23/21 History Atorvastatin Calcium [Lipitor] 20 mg PO HS 09/23/21 09/23/21 History Insulin Aspart [NovoLOG Flexpen] See Protocol SQ AC-TID 09/23/21 09/23/21 History Allergies Allergy/AdvReac Type Severity Reaction Status Date / Time No Known Allergies Allergy Verified 09/23/21 11:46 Physical Exam Vitals: Vital Signs Temp Pulse Pulse Resp BP BP Pulse Ox 09/24/21 04:00 97.5 F L 63 15 133/83 97 09/23/21 23:46 97.6 F 70 16 158/95 98 09/23/21 21:15 97.5 F L 65 15 136/88 98 09/23/21 20:59 98.1 F 81 18 160/94 0 L 09/23/21 20:00 81 18 161/92 98 09/23/21 18:30 71 18 169/95 95 09/23/21 16:51 67 18 165/96 95 09/23/21 15:05 71 18 154/89 98 09/23/21 12:25 65 18 161/89 95 09/23/21 11:28 69 18 148/86 95 09/23/21 10:36 75 18 175/108 09/23/21 10:00 97.8 F 82 14 185/101 98 Intake and Output 09/23/21 09/24/21 09/24/21 22:59 06:59 14:59 Output Total 200 Balance -200 Output: Urine 200 Other: Voiding Method Toilet Toilet # Voids 2 Weight 95.254 kg - Constitutional General appearance: no acute distress - EENT Eyes: EOMI - Neck Neck: no lymphadenopathy - Respiratory Respiratory: bilateral: CTA - Cardiovascular Rhythm: regular Heart sounds: normal: S1, S2 Abnormal Heart Sounds: no S3 Gallop - Gastrointestinal General gastrointestinal: soft, tenderness - Integumentary Integumentary: no cellulitis Results CBC & Chem 7: 09/23/21 10:29 09/23/21 10:29 Labs: Abnormal Lab Results - Last 24 Hours (Table) 09/23/21 09/23/21 09/24/21 Range/Units 10:29 10:29 06:01 MCV 100.2 H (80.0-100.0) fL Glucose 135 H (74-99) mg/dL POC Glucose (mg/dL) 68 L (75-99) mg/dL Lipase 2434 H (23-300) U/L 09/24/21 Range/Units 06:15 MCV (80.0-100.0) fL Glucose (74-99) mg/dL POC Glucose (mg/dL) 72 L (75-99) mg/dL Lipase (23-300) U/L Thrombosis Risk Factor Assmnt - Choose All That Apply Any of the Below Risk Factors Present?: Yes Each Factor Represents 1 point: Age 41-60 years, Obesity (BMI >25) Other Risk Factors: No Other congenital or acquired thrombophilia - If yes, enter type in comment: No Thrombosis Risk Factor Assessment Total Risk Factor Score: 2 Thrombosis Risk Factor Assessment Level: Low Risk Assessment and Plan (1) Alcohol withdrawal Current Visit: Yes Status: Acute Code(s): F10.239 - ALCOHOL DEPENDENCE WITH WITHDRAWAL, UNSPECIFIED SNOMED Code(s): 616436912 (2) Alcoholic pancreatitis Current Visit: Yes Status: Acute Code(s): K85.20 - ALCOHOL INDUCED ACUTE PANCREATITIS WITHOUT NECROSIS OR INFCT SNOMED Code(s): 758253829 (3) Chest pain Current Visit: Yes Status: Acute Code(s): R07.9 - CHEST PAIN, UNSPECIFIED SNOMED Code(s): 09485981 (4) Diabetes Current Visit: Yes Status: Acute Code(s): E11.9 - TYPE 2 DIABETES MELLITUS WITHOUT COMPLICATIONS SNOMED Code(s): 70958933 Plan: Continue IV hydration. Check CBC, CMP with amylase and lipase in a.m. per Rule out myocardial infarction. Consult GI and cardiology. See orders otherwise. Also SINCE again discussed with the patient
[2021-09-24] MEDS ORDERED: ASPIRIN 325 MG TAB PO SCH (09:00)
[2021-09-24] MEDS: NON FORMULARY DRUG (Empagliflozin [Jardiance] 25 MG Tablet) PO SCH (09:22)
[2021-09-24 10:57] LABS: Chol/HDL Ratio 3.92 Ratio; LDL Cholesterol,Calculated 104.9 mg/dL (0.0-131.0)
[2021-09-24 12:00] LABS: Glucose,Whole Blood 59 mg/dL (75-99)
[2021-09-24] MEDS: INSULIN ASPART (NovoLOG) 100 UNIT/ML VIAL SQ SCH ×3 (12:02→20:06)
[2021-09-24 12:12] LABS: Glucose,Whole Blood 79 mg/dL (75-99)
--- NOTE | 2021-09-24 12:30 | P.CRDCN ---
History of Present Illness History of present illness: HISTORY OF PRESENT ILLNESS: This is a 55 year old female with a past medical history significant for hypertension, hyperlipidemia, diabetes, and alcohol abuse. Patient does not follow with a manufacturing engineering technician. We have been asked to see the patient in consultation for chest pain. Patient examined at the bedside. Patient states his last drink was on Wednesday. He began having chest pain Wednesday afternoon. He states the pain radiated into his neck. He denied any SOB. He denied nausea or vomiting. He denies any chest pain at the time of my examination. * EKG reveals sinus mechanism with no signs of acute ischemia * Chest xray negative for acute process * Laboratory data: WBC 7.1. Hemoglobin 16.2. Platelet count 211. Sodium 138. Potassium 4.5. B UN 20. Creatinine 0.77. Troponin negative 3. Lipase 2434. * Current home cardiac medications include Lipitor 20 mg at night REVIEW OF SYSTEMS: At the time of my exam: CONSTITUTIONAL: Denies fever or chills. HEENT: Denies blurred vision, vision changes, or eye pain. Denies hemoptysis CARDIOVASCULAR: Denies chest pain. Denies orthopnea. Denies PND. Denies palpitations RESPIRATORY: Denies shortness of breath. GASTROINTESTINAL: Denies abdominal pain. Denies nausea or vomiting. HEMATOLOGIC: Denies bleeding disorders. GENITOURINARY: Denies any blood in urine. SKIN: Denies pruitis. Denies rash. PHYSICAL EXAM: VITAL SIGNS: Reviewed. GENERAL: Well-developed in no acute distress. HEENT: Head is normocephalic. Pupils are equal, round. Sclerae anicteric. Mucous membranes of the mouth are moist. Neck supple. No JVD or thyromegaly LUNGS: Respirations even and unlabored. Lungs essentially clear to auscultation bilaterally. HEART: Regular rate and rhythm. S1 and S2 heard. ABDOMEN: Soft. Nondistended. Nontender. EXTREMITIES: Normal range of motion. No clubbing or cyanosis. Peripheral pulses intact. No lower extremity edema NEUROLOGIC: Awake and alert. Oriented x 3. ASSESSMENT: Chest pain, troponin negative x 3 Alcohol withdrawal Pancreatitis Hypertension Hyperlipidemia Diabetes Alcohol abuse PLAN: An acute coronary event has been ruled out Obtain 2D echo to assess cardiac structure and function Resume home cardiac medications Outpatient stress test recommended Abstinence from alcohol recommended Further recommendations pending patient's course Nurse practitioner note has been reviewed by physician. Signing provider agrees with the documented findings, assessment, and plan of care. Past Medical History Past Medical History: Diabetes Mellitus, GERD/Reflux Additional Past Medical History / Comment(s): ETOH, pancreatitis, IDDM type II, occasional neuropathy R foot, past burn R foot/had skin grafting. History of Any Multi-Drug Resistant Organisms: None Reported Past Surgical History: Orthopedic Surgery Additional Past Surgical History / Comment(s): skin graft to R foot/L thigh skin donor, colonoscopy, L index finger crush injury with surgery. Past Anesthesia/Blood Transfusion Reactions: No Reported Reaction Additional Past Anesthesia/Blood Transfusion Reaction / Comment(s): no hx blood transfusion Past Psychological History: No Psychological Hx Reported Additional Psychological History / Comment(s): Pt resides with his spouse. He is independent. Smoking Status: Never smoker Past Alcohol Use History: Abuse, Heavy Additional Past Alcohol Use History / Comment(s): 1/5 bottle of liquor a day and sometimes more. Past Drug Use History: None Reported - Past Family History Father Family Medical History: Cancer Additional Family Medical History / Comment(s): Skin cancer. Father is . Sister(s) Family Medical History: Cancer Additional Family Medical History / Comment(s): female Mother Family Medical History: No Reported History Additional Family Medical History / Comment(s): Mother is 88yrs old Medications and Allergies Home Medications Medication Instructions Recorded Confirmed Type Pantoprazole [Protonix] 40 mg PO DAILY 12/02/15 09/23/21 History Empagliflozin [Jardiance] 25 mg PO DAILY 10/03/19 09/23/21 History Insulin Degludec [Tresiba 32 units SQ DAILY 05/02/21 09/23/21 History Flextouch U-200 Pen] metFORMIN HCL [Glucophage] 1,000 mg PO BID-W/MEALS 05/02/21 09/23/21 History Atorvastatin Calcium [Lipitor] 20 mg PO HS 09/23/21 09/23/21 History Insulin Aspart [NovoLOG Flexpen] See Protocol SQ AC-TID 09/23/21 09/23/21 History Allergies Allergy/AdvReac Type Severity Reaction Status Date / Time No Known Allergies Allergy Verified 09/23/21 11:46 Physical Exam Vitals: Vital Signs Temp Pulse Pulse Resp BP BP Pulse Ox 09/24/21 04:00 97.5 F L 63 15 133/83 97 09/23/21 23:46 97.6 F 70 16 158/95 98 09/23/21 21:15 97.5 F L 65 15 136/88 98 09/23/21 20:59 98.1 F 81 18 160/94 0 L 09/23/21 20:00 81 18 161/92 98 09/23/21 18:30 71 18 169/95 95 09/23/21 16:51 67 18 165/96 95 09/23/21 15:05 71 18 154/89 98 09/23/21 12:25 65 18 161/89 95 09/23/21 11:28 69 18 148/86 95 09/23/21 10:36 75 18 175/108 09/23/21 10:00 97.8 F 82 14 185/101 98 Intake and Output 09/23/21 09/24/21 09/24/21 22:59 06:59 14:59 Output Total 200 Balance -200 Output: Urine 200 Other: Voiding Method Toilet Toilet # Voids 2 Weight 95.254 kg Results 09/23/21 10:29 09/23/21 10:29 Cardiac Enzymes 09/23/21 09/23/21 09/23/21 Range/Units 10:29 10:29 14:49 AST 24 (17-59) U/L Troponin I <0.012 <0.012 (0.000-0.034) ng/mL 09/23/21 Range/Units 16:37 AST (17-59) U/L Troponin I <0.012 (0.000-0.034) ng/mL Coagulation 09/23/21 Range/Units 10:29 PT 10.9 (9.0-12.0) sec APTT 22.3 (22.0-30.0) sec CBC 09/23/21 Range/Units 10:29 WBC 7.1 (3.8-10.6) k/uL RBC 4.72 (4.30-5.90) m/uL Hgb 16.2 (13.0-17.5) gm/dL Hct 47.3 (39.0-53.0) % Plt Count 211 (150-450) k/uL Comprehensive Metabolic Panel 09/23/21 Range/Units 10:29 Sodium 138 (137-145) mmol/L Potassium 4.5 (3.5-5.1) mmol/L Chloride 103 (98-107) mmol/L Carbon Dioxide 26 (22-30) mmol/L BUN 20 (9-20) mg/dL Creatinine 0.77 (0.66-1.25) mg/dL Glucose 135 H (74-99) mg/dL Calcium 9.0 (8.4-10.2) mg/dL AST 24 (17-59) U/L ALT 19 (4-49) U/L Alkaline Phosphatase 79 (38-126) U/L Total Protein 7.1 (6.3-8.2) g/dL Albumin 4.2 (3.5-5.0) g/dL Current Medications Generic Name Dose Route Start Last Admin Trade Name Freq PRN Reason Stop Dose Admin Aspirin 325 mg 09/24/21 09:00 Aspirin 325 Mg Tab PO DAILY SANDY Atorvastatin Calcium 20 mg 09/24/21 21:00 Atorvastatin 20 Mg Tab PO HS [facility] Hydromorphone HCl 0.5 mg 09/23/21 11:50 09/24/21 03:54 Hydromorphone 0.5 Mg/0.5 Ml Syringe IVP 0.5 mg Q3HR PRN Administration Pain Sodium Chloride 1,000 mls @ 75 mls/hr 09/23/21 11:45 09/23/21 12:24 Saline 0.9% IV 75 mls/hr .[id number] SANDY Administration Lorazepam 1 mg 09/23/21 21:46 09/23/21 23:39 Lorazepam 2 Mg/Ml Inj IV 1 mg Q2HR PRN Administration CIWA 8 or 9 Lorazepam 1 mg 09/23/21 21:46 Lorazepam 2 Mg/Ml Inj IV Q1HR PRN CIWA 10 to 15 Lorazepam 2 mg 09/23/21 21:46 Lorazepam 2 Mg/Ml Inj IV 09/25/21 21:46 Q10M PRN CIWA 16 or higher Nitroglycerin 0.4 mg 09/23/21 11:46 Nitroglycerin Sl Tabs 0.4 Mg Tab SUBLINGUAL Q5M PRN Chest Pain Non-Formulary Medication 25 mg 09/24/21 09:00 Empagliflozin [Jardiance] PO DAILY [facility] Pantoprazole Sodium 40 mg 09/24/21 07:30 09/24/21 06:42 Pantoprazole 40 Mg Tablet PO 40 mg [id number] SANDY Administration Thiamine HCl 100 mg 09/23/21 17:30 09/24/21 06:42 Thiamine 100 Mg Tab PO 100 mg BID-W/MEALS SANDY Administration Intake and Output 09/23/21 09/24/21 09/24/21 22:59 06:59 14:59 Output Total 200 Balance -200 Output: Urine 200 Other: Voiding Method Toilet Toilet # Voids 2 Weight 95.254 kg 09/23/21 10:29 09/23/21 10:29
--- NOTE | 2021-09-24 14:16 | P.CONS ---
History of Present Illness - Reason for Consult Consult date: 09/24/21 Pancreatitis Requesting physician: Bebo Kennedy - Chief Complaint Chest pain - History of Present Illness This is a 55-year-old male with a past medical history of alcoholism, alcoholic pancreatitis, diabetes mellitus and GERD. He presented to the emergency department with complaints of left chest pain that radiated up to his neck. He denied any nausea or vomiting. He continues to drink significant amounts of alcohol daily. He drinks a fifth or more day. Last drink was 2-3 days ago. He states his last episode of pancreatitis was about 6 months ago. He does have history of GERD and underwent EGD 09/15/[address] Serna and findings of antral gastritis, fundal polyp, and minimal esophagitis. Admitting labs WBC is 7.1 hemoglobin 16.2 hematocrit 47 platelet count 211,000 INR 1.0 total bilirubin 1.3 AST 24 ALT 19 alk phos 79 lipase 2434 Review of Systems REVIEW OF SYSTEMS: CARDIOPULMONARY: Chest pain that radiated to his left neck yesterday evening on, none currently. No shortness of breath. Gastrointestinal: Epigastric pain. No nausea or vomiting. No hematemesis, coffee-ground emesis. No rectal bleeding, or melena. GENITOURINARY: No dysuria or hematuria. MUSCULOSKELETAL: Reports normal range of motion., Joint pain. SKIN: No rashes. No jaundice. ENDOCRINE: No chills, fevers. No excessive weight gain or loss. No polydipsia or polyuria. PSYCHIATRIC: Unremarkable. NEUROLOGY: No change in mental status. Denies dizziness, headache. ENT: Vision unremarkable. CONSTITUTIONAL: No recent weight loss. No fever, chills, night sweats. Past Medical History Past Medical History: Diabetes Mellitus, GERD/Reflux Additional Past Medical History / Comment(s): ETOH, pancreatitis, IDDM type II, occasional neuropathy R foot, past burn R foot/had skin grafting. History of Any Multi-Drug Resistant Organisms: None Reported Past Surgical History: Orthopedic Surgery Additional Past Surgical History / Comment(s): skin graft to R foot/L thigh skin donor, colonoscopy, L index finger crush injury with surgery. Past Anesthesia/Blood Transfusion Reactions: No Reported Reaction Additional Past Anesthesia/Blood Transfusion Reaction / Comm: no hx blood transfusion Past Psychological History: No Psychological Hx Reported Additional Psychological History / Comment(s): Pt resides with his spouse. He is independent. Smoking Status: Never smoker Past Alcohol Use History: Abuse, Heavy Additional Past Alcohol Use History / Comment(s): 1/5 bottle of liquor a day and sometimes more. Past Drug Use History: None Reported - Past Family History Father Family Medical History: Cancer Additional Family Medical History / Comment(s): Skin cancer. Father is . Sister(s) Family Medical History: Cancer Additional Family Medical History / Comment(s): female Mother Family Medical History: No Reported History Additional Family Medical History / Comment(s): Mother is 88yrs old Medications and Allergies Home Medications Medication Instructions Recorded Confirmed Type Pantoprazole [Protonix] 40 mg PO DAILY 12/02/15 09/23/21 History Empagliflozin [Jardiance] 25 mg PO DAILY 10/03/19 09/23/21 History Insulin Degludec [Tresiba 32 units SQ DAILY 05/02/21 09/23/21 History Flextouch U-200 Pen] metFORMIN HCL [Glucophage] 1,000 mg PO BID-W/MEALS 05/02/21 09/23/21 History Atorvastatin Calcium [Lipitor] 20 mg PO HS 09/23/21 09/23/21 History Insulin Aspart [NovoLOG Flexpen] See Protocol SQ AC-TID 09/23/21 09/23/21 History Allergies Allergy/AdvReac Type Severity Reaction Status Date / Time No Known Allergies Allergy Verified 09/23/21 11:46 Physical Exam Vitals: Vital Signs Temp Pulse Pulse Resp BP BP Pulse Ox 09/24/21 11:50 64 16 137/80 99 09/24/21 09:22 98.2 F 64 16 160/84 99 09/24/21 08:00 64 16 09/24/21 04:00 97.5 F L 63 15 133/83 97 09/23/21 23:46 97.6 F 70 16 158/95 98 09/23/21 21:15 97.5 F L 65 15 136/88 98 09/23/21 20:59 98.1 F 81 18 160/94 0 L 09/23/21 20:00 81 18 161/92 98 09/23/21 18:30 71 18 169/95 95 09/23/21 16:51 67 18 165/96 95 09/23/21 15:05 71 18 154/89 98 09/23/21 12:25 65 18 161/89 95 Intake and Output 09/23/21 09/24/21 09/24/21 22:59 06:59 14:59 Output Total 200 Balance -200 Output: Urine 200 Other: Voiding Method Toilet Toilet Toilet # Voids 2 Weight 95.254 kg General appearance: The patient is alert, oriented, appears in no acute distress. HET: Head is normocephalic and atraumatic. Conjunctiva pink. Sclera anicteric. Neck: Supple without lymphadenopathy. Trachea midline. Heart: S1 S2. Regular rate and rhythm. Lungs: Clear to auscultation. Abdomen: Soft, epigastric tenderness,, nondistended with bowel sounds. No guarding or rigidity. Skin: No rashes. No jaundice. Extremities: Normal skin color and turgor. No pedal edema. Neurological: No focal deficits. Alert and oriented x3. Results CBC & Chem 7: 09/23/21 10:29 09/23/21 10:29 Labs: Abnormal Lab Results - Last 24 Hours (Table) 09/24/21 09/24/21 09/24/21 Range/Units 06:01 06:15 07:30 POC Glucose (mg/dL) 68 L 72 L (75-99) mg/dL Triglycerides 157.00 H (0.00-149.00) mg/dL Assessment and Plan (1) Alcoholic pancreatitis Narrative/Plan: 45-year-old male who presented to the emergency department with complaints of chest pain. Noted to have elevated lipase at 2434. Patient has a long history of alcohol dependence and prior history of alcoholic pancreatitis with his last episode approximately 6 months ago. He continues to drink a fifth or more daily. States chest pain has improved is now more in the epigastric region. Cardiology has seen patient and ruled out acute coronary event. LFTs unremarkable. Patient states pain improving, no nausea or vomiting. He has been afebrile. No imaging was completed. With patient continued to alcohol dependence likely etiology is alcohol related pancreatitis however will also order abdominal ultrasound for further assessment. Current Visit: Yes Status: Acute Code(s): K85.20 - ALCOHOL INDUCED ACUTE PANCREATITIS WITHOUT NECROSIS OR INFCT SNOMED Code(s): 435131268 (2) Chest pain Narrative/Plan: Cardiology following, they ruled out acute coronary event Current Visit: Yes Status: Acute Code(s): R07.9 - CHEST PAIN, UNSPECIFIED SNOMED Code(s): 43671794 (3) Diabetes Current Visit: Yes Status: Acute Code(s): E11.9 - TYPE 2 DIABETES MELLITUS WITHOUT COMPLICATIONS SNOMED Code(s): 61437681 Plan: 1. Continue symptomatic and supportive care 2. Monitor for alcohol withdrawal 3. Recommend alcohol abstinence 4. On August advance to clear liquid diet, advance as tolerated 5. Continue with recommendations from cardiology 6. Continue IV fluids 7. Antiemetics and pain medications as needed 8. Repeat CMP and lipase in the morning Thank you for this consultation, we will continue to follow. Dr. Nel Maya I agree with the dictator's note, documented as a scribe by Sonya Polk.
--- NOTE | 2021-09-24 15:50 | US ---
EXAMINATION TYPE: US abdomen complete DATE OF EXAM: 09/24/2021 COMPARISON: CT abdomen and pelvis November 03, 2020 CLINICAL HISTORY: pancreatitis. Abnormal labs. Patient came in for alcohol withdrawal. EXAM MEASUREMENTS: Liver Length: 14.6 cm Gallbladder Wall: 0.2 cm Spleen: 15.7 cm Right Kidney: 10.5 x 4.9 x 5.4 cm Left Kidney: 11.9 x 4.7 x 5.6 cm Pancreas: Obscured by bowel gas, limited visualization Liver: wnl Gallbladder: wnl Evidence for sonographic Jonas's sign: neg CBD: Obscured by overlying bowel gas Spleen: Enlarged in size Right Kidney: No hydronephrosis or masses seen Left Kidney: No hydronephrosis or masses seen Upper IVC: wnl Abd Aorta: Proximal and mid portion obscured by bowel gas The visualized liver is heterogeneously hyperechoic. The intrahepatic portion of the IVC and visuali zed distal abdominal aorta are within normal limits. There is no evidence of shadowing mobile cholel ithiasis. Common bile duct is unremarkable. Suboptimal visualization of pancreas due to body habitus and overlying bowel gas. The spleen is unremarkable. Kidneys are symmetric and free of hydronephro sis. No renal lesions are seen. IMPRESSION: Suboptimal evaluation of pancreas. If concern for complication related to acute pancreati tis remains present further investigation with pancreatic protocol contrast enhanced CT would be advi sed.
[2021-09-24 16:28] LABS: Glucose,Whole Blood 115 mg/dL (70-110)
[2021-09-24] MEDS: SODIUM CHLORIDE 0.9% 1,000 ML IV SCH (17:26)
[2021-09-24 19:41] LABS: Glucose,Whole Blood 140 mg/dL (70-110)
[2021-09-24] MEDS ORDERED: ATORVASTATIN 20 MG TAB PO SCH (21:00)
[2021-09-24] MEDS: LORazepam 2 MG/ML INJ IV PRN (22:21)
[2021-09-25 06:10] LABS: Glucose,Whole Blood 95 mg/dL (70-110)
[2021-09-25] MEDS: THIAMINE 100 MG TAB PO SCH (06:14)
[2021-09-25] MEDS: PANTOPRAZOLE 40 MG TABLET PO SCH (06:14)
[2021-09-25] MEDS: INSULIN ASPART (NovoLOG) 100 UNIT/ML VIAL SQ SCH ×2 (06:15→12:23)
[2021-09-25] MEDS: SODIUM CHLORIDE 0.9% 1,000 ML IV SCH ×2 (06:15→08:43)
[2021-09-25 08:21] VITALS: RESP 16; TEMP 98.1
--- NOTE | 2021-09-25 08:26 | CA ---
Transthoracic Echo Report Name: Meño Sommers Age: 55 Gender: M : 1965 Exam Date: 09/24/2021 14:34 Exam Location: [facility] Ht (in): 64 Wt (lb): 210 Ordering Physician: Annalee Sullivan Attending/Referring Phys: [id number], Nate [employer] Supervisor Irma Short, WENDIE Procedure CPT: Indications: LV function Cardiac Hx: No Cardiac HX. Technical Quality: Good Contrast 1: Total Dose (mL): Contrast 2: Total Dose (mL): MEASUREMENTS (Male / Female) Normal Values 2D ECHO LV Diastolic Diameter PLAX 4.8 cm 4.2 - 5.9 / 3.9 - 5.3 cm LV Systolic Diameter PLAX 4.4 cm IVS Diastolic Thickness 1.5 cm 0.6 - 1.0 / 0.6 - 0.9 cm LVPW Diastolic Thickness 1.3 cm 0.6 - 1.0 / 0.6 - 0.9 cm LV Relative Wall Thickness 0.6 RV Internal Dim ED PLAX 2.8 cm LA Systolic Diameter LX 3.7 cm 3.0 - 4.0 / 2.7 - 3.8 cm M-MODE Aortic Root Diameter MM 3.1 cm LA Systolic Diameter MM 2.6 cm LA Ao Ratio MM 0.9 AV Cusp Separation MM 2.0 cm DOPPLER MV Area PHT 4.1 cm??? Mitral E Point Velocity 57.3 cm/s Mitral A Point Velocity 74.2 cm/s Mitral E to A Ratio 0.8 MV Deceleration Time 184.5 ms MV E' Velocity 6.4 cm/s Mitral E to MV E' Ratio 8.9 TR Peak Velocity 227.6 cm/s TR Peak Gradient 20.7 mmHg Right Ventricular Systolic Press 24.8 mmHg FINDINGS Left Ventricle Normal left ventricular size, mild wall thickness, systolic function with no obvious regional wall motion abnormalities. The ejection fraction is visually estimated at 55 %. Right Ventricle The right ventricle is normal in size and function. Right ventricular systolic pressure within normal limits. Right Atrium The right atrium is normal in size. Left Atrium The left atrium is normal in size. Mitral Valve Structurally normal mitral valve without significant stenosis or prolapse. There is mild mitral regurgitation. Aortic Valve Structurally normal aortic valve without significant sclerosis or stenosis. There is no aortic regurgitation. Tricuspid Valve Structurally normal tricuspid valve without significant stenosis. Pulmonary artery systolic pressure is normal. Pulmonic Valve Structurally normal pulmonic valve without significant stenosis. There is no pulmonic regurgitation. Pericardium Normal pericardium without effusion. Aorta Normal aortic root dimension. CONCLUSIONS Normal LV size and systolic function with borderline concentric LVH. There is mild aortic sclerosis and no restriction of aortic valve leaflet motion. There is minimal mitral and tricuspid insufficiency. No pericardial effusion. No pulmonary hypertension Previewed by: Dr. Abbi Ron MD (Electronically Signed) Final Date: 25 September 2021 08:26
[2021-09-25] MEDS: NON FORMULARY DRUG (Empagliflozin [Jardiance] 25 MG Tablet) PO SCH (08:42)
[2021-09-25] MEDS ORDERED: ASPIRIN 81 MG PO SCH (09:00)
[2021-09-25 09:10] LABS: HCT 41.6 % (39.0-53.0); HGB 14.1 gm/dL (13.0-17.5); MCH 34.7 pg (25.0-35.0); MCHC 33.9 g/dL (31.0-37.0); MCV 102.2 fL (80.0-100.0); Macrocytosis Slight; Mean Platelet Volume 7.5; Platelet Count 177 k/uL (150-450); RBC 4.07 m/uL (4.30-5.90); RDW 13.3 % (11.5-15.5); WBC 6.6 k/uL (3.8-10.6)
[2021-09-25 09:23] LABS: ALT 15 U/L (4-49); AST 20 U/L (17-59); African American GFR (CKD) >90 (>60 ml/min/1.73 sqM); Albumin 3.6 g/dL (3.5-5.0); Alkaline Phosphatase 61 U/L (38-126); Amylase 62 U/L (30-110); Anion Gap 7 mmol/L; Blood Urea Nitrogen 14 mg/dL (9-20); Calcium 8.8 mg/dL (8.4-10.2); Carbon Dioxide 27 mmol/L (22-30); Chloride 103 mmol/L (98-107); Glucose 158 mg/dL (74-99); Lipase 176 U/L (23-300); Non-African American GFR(CKD) >90 (>60 ml/min/1.73 sqM); Potassium 4.7 mmol/L (3.5-5.1); Sodium 137 mmol/L (137-145); Total Bilirubin 0.9 mg/dL (0.2-1.3); Total Protein 6.1 g/dL (6.3-8.2)
--- NOTE | 2021-09-25 09:56 | P.PN ---
Subjective Progress Note Date: 09/25/21 Principal diagnosis: Pancreatitis 55-year-old male who presented to the emergency department with complaints of chest pain was found to have an elevated lipase of 2434 consistent with pancreatitis. Patient has significant history of alcohol abuse drinking more than a fifth a day for several years. Has a past medical history of alcoholic pancreatitis last episode about 6 months ago. Cardiology is on consult as well for chest pain but did rule out acute coronary event. He states he has no abdominal pain no nausea or vomiting. He is been afebrile. He had a regular diet for breakfast this morning without any problems. He did have a ultrasound of the abdomen yesterday that shows suboptimal study for pancreas, gallbladder within normal limits. Repeat lipase today 176, total bilirubin 0.9 AST 20 8T 15 alkaline phosphatase 61. Objective - Vital Signs Vital signs: Vital Signs Temp 98.1 F 09/25/21 07:50 Pulse 70 09/25/21 08:00 Resp 16 09/25/21 08:00 BP 170/81 09/25/21 07:50 Pulse Ox 98 09/25/21 07:50 FiO2 Intake & Output 09/24/21 09/25/21 09/25/21 18:59 06:59 18:59 Intake Total 660 Output Total 200 200 Balance 460 -200 Intake: Oral 660 Output: Urine 200 200 Other: Voiding Method Toilet Toilet Toilet # Voids 3 - Exam General appearance: The patient is alert, oriented, appears in no acute distress. HET: Head is normocephalic and atraumatic. Conjunctiva pink. Sclera anicteric. Neck: Supple without lymphadenopathy. Abdomen: Soft, nontender, nondistended with bowel sounds. No guarding or rigidity. Extremities: Normal skin color and turgor. No pedal edema Skin: No rashes, no jaundice Neurological: No focal deficits. Alert and oriented -3. - Labs CBC & Chem 7: 09/25/21 08:30 09/25/21 08:30 Labs: Abnormal Lab Results - Last 24 Hours (Table) 09/24/21 09/24/21 09/24/21 Range/Units 07:30 11:47 16:25 RBC (4.30-5.90) m/uL MCV (80.0-100.0) fL Glucose (74-99) mg/dL POC Glucose (mg/dL) 59 L 115 H (75-99) mg/dL Total Protein (6.3-8.2) g/dL Triglycerides 157.00 H (0.00-149.00) mg/dL 09/24/21 09/25/21 09/25/21 Range/Units 19:40 08:30 08:30 RBC 4.07 L (4.30-5.90) m/uL MCV 102.2 H (80.0-100.0) fL Glucose 158 H (74-99) mg/dL POC Glucose (mg/dL) 140 H (75-99) mg/dL Total Protein 6.1 L (6.3-8.2) g/dL Triglycerides (0.00-149.00) mg/dL Assessment and Plan (1) Alcoholic pancreatitis Narrative/Plan: 45-year-old male who presented to the emergency department with complaints of chest pain. Noted to have elevated lipase at 2434. Patient has a long history of alcohol dependence and prior history of alcoholic pancreatitis with his last episode approximately 6 months ago. He continues to drink a fifth or more daily. States chest pain has improved is now more in the epigastric region. Cardiology has seen patient and ruled out acute coronary event. LFTs unremarkable. Patient states pain improving, no nausea or vomiting. He has bee n afebrile. No imaging was completed. With patient continued to alcohol dependence likely etiology is alcohol related pancreatitis however will also order abdominal ultrasound for further assessment. Repeat lipase 176, LFTs within normal limits. No further abdominal or epigastric pain. Tolerating regular diet. Discussed importance of alcohol cessation. Patient verbalizes understanding. Current Visit: Yes Status: Acute Code(s): K85.20 - ALCOHOL INDUCED ACUTE PANCREATITIS WITHOUT NECROSIS OR INFCT SNOMED Code(s): 554538177 (2) Chest pain Narrative/Plan: Cardiology following, they ruled out acute coronary event Current Visit: Yes Status: Acute Code(s): R07.9 - CHEST PAIN, UNSPECIFIED SNOMED Code(s): 92311109 (3) Diabetes Current Visit: Yes Status: Acute Code(s): E11.9 - TYPE 2 DIABETES MELLITUS WITHOUT COMPLICATIONS SNOMED Code(s): 77340701 Plan: 1. Continue symptomatic and supportive care 2. Monitor for alcohol withdrawal 3. Recommend alcohol abstinence 4. Diet as tolerated 5. Continue with recommendations from cardiology Thank you for this consultation, patient is cleared for discharge from gastroenterology. Dr. Nel Maya I agree with the dictator's note, documented as a scribe by Sonya Polk.
[2021-09-25 11:51] VITALS: BP 184/93; PULSE 72
[2021-09-25 12:18] LABS: Glucose,Whole Blood 114 mg/dL (70-110)
--- NOTE | 2021-09-25 12:37 | P.PN ---
Subjective Progress Note Date: 09/25/21 Patient is seen resting comfortably in the chair. Patient is in no acute distress. He denies chest pain shortness of breath or palpitations. Patient's echocardiogram showed a normal LV function with mild aortic stenosis and minimal mitral and tricuspid regurgitation. Patient's blood pressure is elevated will start losartan 25 mg daily. Patient will undergo a outpatient stress test for further work up. Objective - Vital Signs Vital signs: Vital Signs Temp 98.1 F 09/25/21 07:50 Pulse 72 09/25/21 11:50 Resp 16 09/25/21 11:50 BP 184/93 09/25/21 11:50 Pulse Ox 92 L 09/25/21 11:50 FiO2 Intake & Output 09/24/21 09/25/21 09/25/21 18:59 06:59 18:59 Intake Total 660 Output Total 200 200 Balance 460 -200 Intake: Oral 660 Output: Urine 200 200 Other: Voiding Method Toilet Toilet Toilet # Voids 3 - Exam PHYSICAL EXAM: VITAL SIGNS: Reviewed. GENERAL: Well-developed in no acute distress. HEENT: Head is normocephalic. Pupils are equal, round. Sclerae anicteric. Mucous membranes of the mouth are moist. NECK: Supple. No JVD or thyromegaly RESPIRATORY: Respirations even and unlabored. Lungs diminished to auscultation bilaterally. CARDIO: Regular rate and rhythm. S1 and S2 heard. No murmur or gallops. EXTREMITIES: Normal range of motion. No clubbing or cyanosis. Peripheral pulses intact. Negative for bilateral lower extremity edema NEURO: Orientated to person, time, mood is appropriate - Labs CBC & Chem 7: 09/25/21 08:30 09/25/21 08:30 Labs: Abnormal Lab Results - Last 24 Hours (Table) 09/24/21 09/24/21 09/25/21 Range/Units 16:25 19:40 08:30 RBC 4.07 L (4.30-5.90) m/uL MCV 102.2 H (80.0-100.0) fL Glucose (74-99) mg/dL POC Glucose (mg/dL) 115 H 140 H (70-110) mg/dL Total Protein (6.3-8.2) g/dL 06/16/22 06/16/22 Range/Units 08:30 12:17 RBC (4.30-5.90) m/uL MCV (80.0-100.0) fL Glucose 158 H (74-99) mg/dL POC Glucose (mg/dL) 114 H (70-110) mg/dL Total Protein 6.1 L (6.3-8.2) g/dL Assessment and Plan Assessment: Chest pain, troponin negative x 3 Alcohol withdrawal Pancreatitis Hypertension Hyperlipidemia Diabetes Alcohol abuse Plan: Start losartan 25 mg daily Acute coronary event has been ruled out Echocardiogram has been obtained and reviewed Continue with all other current cardiac medications Outpatient stress test is recommended Abstain from alcohol recommended The above impression and plan of care have been discussed and directed by the signing physician. Vickie Oconnell, nurse practitioner, acting as scribe for signing physician.
--- NOTE | 2021-09-25 12:41 | P.DS ---
Providers Date of admission: 09/23/21 11:46 Attending physician: Bebo Kennedy Consults: 09/23/21 11:46 Consult Physician Urgent Consulting Provider: Hector Maya Consult Reason/Comments: Chest pain Do you want consulting provider notified?: Yes 09/24/21 08:35 Consult Physician Routine Consulting Provider: Laxmi Maya Consult Reason/Comments: pancreatitis Do you want consulting provider notified?: Yes Primary care physician: Bebo Kennedy - Discharge Diagnosis(es) (1) Alcohol withdrawal Current Visit: Yes Status: Acute (2) Alcoholic pancreatitis Current Visit: Yes Status: Acute (3) Chest pain Current Visit: Yes Status: Acute (4) Diabetes Current Visit: Yes Status: Acute Hospital Course: This discharge summary a 55-year-old white male essentially admitted for alcoholic pancreatitis. The patient was stabilized. He had chest pain enzymes were ruled out. Was nominal. He is tolerating diet and pancreatic enzymes are back to normal. Abstinence from alcohol was again discussed Patient Condition at Discharge: Fair Plan - Discharge Summary Discharge Rx Participant: No New Discharge Prescriptions: New Losartan [Cozaar] 50 mg PO DAILY #30 tab Continue Pantoprazole [Protonix] 40 mg PO DAILY Empagliflozin [Jardiance] 25 mg PO DAILY Atorvastatin Calcium [Lipitor] 20 mg PO HS Insulin Aspart [NovoLOG Flexpen] See Protocol SQ AC-TID metFORMIN HCL [Glucophage] 1,000 mg PO BID-W/MEALS Insulin Degludec [Tresiba Flextouch U-200 Pen] 32 units SQ DAILY Discharge Medication List Pantoprazole [Protonix] 40 mg PO DAILY 12/02/15 [History] Empagliflozin [Jardiance] 25 mg PO DAILY 10/03/19 [History] Insulin Degludec [Tresiba Flextouch U-200 Pen] 32 units SQ DAILY 05/02/21 [History] metFORMIN HCL [Glucophage] 1,000 mg PO BID-W/MEALS 05/02/21 [History] Atorvastatin Calcium [Lipitor] 20 mg PO HS 09/23/21 [History] Insulin Aspart [NovoLOG Flexpen] See Protocol SQ AC-TID 09/23/21 [History] Losartan [Cozaar] 50 mg PO DAILY #30 tab 09/25/21 [Rx] Follow up Appointment(s)/Referral(s): Bebo Kennedy MD [Primary Care Provider] - 3 Days Discharge/Stand Alone Forms: AA Meetings [facility], Community Resources, Outpatient Counseling, Inp Substance Abuse Facilities, Personal [employer]
[2021-09-25] MEDS ORDERED: LOSARTAN 25 MG TAB PO SCH (12:45)
== END 2021-09-25 14:33 | disposition home or self-care (01) | DRG 439 ==
LOC: EC 09:57 → 3SCARD 11:46
PROVIDERS: ADMIT Family Medicine; ATTEND Family Medicine
DX: K85.20 Alcohol induced acute pancreatitis without necrosis or infection (principal); F10.239 Alcohol dependence with withdrawal, unspecified; R07.89 Other chest pain; E11.9 Type 2 diabetes mellitus without complications; Z71.41 Alcohol abuse counseling and surveillance of alcoholic; I08.1 Rheumatic disorders of both mitral and tricuspid valves; I10 Essential (primary) hypertension; K21.9 Gastro-esophageal reflux disease without esophagitis; E78.5 Hyperlipidemia, unspecified; Z79.4 Long term (current) use of insulin; Z79.84 Long term (current) use of oral hypoglycemic drugs; Z79.899 Other long term (current) drug therapy; Z80.8 Family history of malignant neoplasm of other organs or systems
CPT/HCPCS: 36415; 71046; 76700; 80053; 80061; 80320; 82150; 83690; 83735; 83880; 84484; 85025; 85027; 85610; 85730; 93005; 93306; 96361; 96374; 96375; 96376; 99285

== ENCOUNTER 2021-11-08 02:06 | Inpatient (IN) | payer BC, OTHER ==
[2021-11-08] MEDS ORDERED: SODIUM CHLORIDE 0.9% 1,000 ML IV STA ×3 (02:10→03:58)
[2021-11-08] MEDS ORDERED: SODIUM CHLORIDE 0.9% 500 ML 500 ML IV STA (02:10)
--- NOTE | 2021-11-08 02:10 | ED ---
Abdominal Pain HPI - General Chief Complaint: Abdominal Pain Stated Complaint: Pancreatitis Time Seen by Provider: 11/08/21 02:10 Source: patient Mode of arrival: ambulatory Limitations: no limitations - Related Data Home Medications Medication Instructions Recorded Confirmed Pantoprazole [Protonix] 40 mg PO DAILY 12/02/15 09/23/21 Empagliflozin [Jardiance] 25 mg PO DAILY 10/03/19 09/23/21 Insulin Degludec [Tresiba 32 units SQ DAILY 05/02/21 09/23/21 Flextouch U-200 Pen] metFORMIN HCL [Glucophage] 1,000 mg PO BID-W/MEALS 05/02/21 09/23/21 Atorvastatin Calcium [Lipitor] 20 mg PO HS 09/23/21 09/23/21 Insulin Aspart [NovoLOG Flexpen] See Protocol SQ AC-TID 09/23/21 09/23/21 Previous Rx's Medication Instructions Recorded Losartan [Cozaar] 50 mg PO DAILY #30 tab 09/25/21 Allergies Allergy/AdvReac Type Severity Reaction Status Date / Time No Known Allergies Allergy Verified 11/08/21 02:09 Review of Systems ROS Statement: Those systems with pertinent positive or pertinent negative responses have been documented in the HPI. ROS Other: All systems not noted in ROS Statement are negative. Past Medical History Past Medical History: Diabetes Mellitus, GERD/Reflux Additional Past Medical History / Comment(s): ETOH, pancreatitis, IDDM type II, occasional neuropathy R foot, past burn R foot/had skin grafting. History of Any Multi-Drug Resistant Organisms: None Reported Past Surgical History: Orthopedic Surgery Additional Past Surgical History / Comment(s): skin graft to R foot/L thigh skin donor, colonoscopy, L index finger crush injury with surgery. Past Anesthesia/Blood Transfusion Reactions: No Reported Reaction Additional Past Anesthesia/Blood Transfusion Reaction / Comment(s): no hx blood transfusion Past Psychological History: No Psychological Hx Reported Smoking Status: Never smoker Past Alcohol Use History: Abuse, Heavy Past Drug Use History: None Reported - Past Family History Father Family Medical History: Cancer Additional Family Medical History / Comment(s): Skin cancer. Father is . Sister(s) Family Medical History: Cancer Additional Family Medical History / Comment(s): female Mother Family Medical History: No Reported History Additional Family Medical History / Comment(s): Mother is 88yrs old General Exam Limitations: no limitations Course Vital Signs 11/08/21 02:06 Temperature 98 F Pulse Rate 86 Respiratory 22 Rate Blood Pressure 160/92 O2 Sat by Pulse 98 Oximetry Medical Decision Making - Lab Data Result diagrams: 11/08/21 02:19 11/08/21 02:19 Lab Results 11/08/21 11/08/21 Range/Units 02:19 02:19 WBC 14.0 H (3.8-10.6) k/uL RBC 4.97 (4.30-5.90) m/uL Hgb 16.1 (13.0-17.5) gm/dL Hct 46.2 (39.0-53.0) % MCV 93.1 D (80.0-100.0) fL MCH 32.4 (25.0-35.0) pg MCHC 34.8 (31.0-37.0) g/dL RDW 12.3 (11.5-15.5) % Plt Count 206 (150-450) k/uL MPV 7.2 Neutrophils % 74 % Lymphocytes % 19 % Monocytes % 4 % Eosinophils % 2 % Basophils % 0 % Neutrophils # 10.4 H (1.3-7.7) k/uL Lymphocytes # 2.6 (1.0-4.8) k/uL Monocytes # 0.5 (0-1.0) k/uL Eosinophils # 0.3 (0-0.7) k/uL Basophils # 0.0 (0-0.2) k/uL Sodium 135 L (137-145) mmol/L Potassium 3.9 (3.5-5.1) mmol/L Chloride 103 (98-107) mmol/L Carbon Dioxide 22 (22-30) mmol/L Anion Gap 10 mmol/L BUN 19 (9-20) mg/dL Creatinine 0.57 L (0.66-1.25) mg/dL Est GFR (CKD-EPI)AfAm >90 (>60 ml/min/1.73 sqM) Est GFR (CKD-EPI)NonAf >90 (>60 ml/min/1.73 sqM) Glucose 189 H (74-99) mg/dL Calcium 8.7 (8.4-10.2) mg/dL Phosphorus 3.2 (2.5-4.5) mg/dL Magnesium 1.5 L (1.6-2.3) mg/dL Total Bilirubin 1.5 H (0.2-1.3) mg/dL AST 23 (17-59) U/L ALT 21 (4-49) U/L Alkaline Phosphatase 107 (38-126) U/L Total Protein 7.4 (6.3-8.2) g/dL Albumin 4.2 (3.5-5.0) g/dL Lipase 4879 H (23-300) U/L Serum Alcohol <10 mg/dL Disposition Clinical Impression: Alcoholic pancreatitis, Chronic alcoholic pancreatitis, Abdominal pain Disposition: ADMITTED IP TO THIS HOSP Condition: Fair Is patient prescribed a controlled substance at d/c from ED?: No Referrals: Bebo Kennedy MD [Primary Care Provider] - 1-2 days
[2021-11-08] MEDS ORDERED: ONDANSETRON 4 MG/2 ML VIAL IVP STA (02:11)
[2021-11-08] MEDS ORDERED: PANTOPRAZOLE 40 MG/10 ML VIAL IVP STA (02:11)
[2021-11-08] MEDS ORDERED: MORPHINE SULFATE 4 MG/ML SYRINGE IVP STA ×2 (02:11→04:03)
[2021-11-08 02:29] LABS: Basophils % (A) 0 %; Eosinophils # (A) 0.3 k/uL (0-0.7); Eosinophils % (A) 2 %; HCT 46.2 % (39.0-53.0); HGB 16.1 gm/dL (13.0-17.5); Lymphocytes # (A) 2.6 k/uL (1.0-4.8); Lymphocytes % (A) 19 %; MCH 32.4 pg (25.0-35.0); MCHC 34.8 g/dL (31.0-37.0); Mean Platelet Volume 7.2; Monocytes # (A) 0.5 k/uL (0-1.0); Monocytes % (A) 4 %; Neutrophils # (A) 10.4 k/uL (1.3-7.7); Neutrophils % (A) 74 %; Platelet Count 206 k/uL (150-450); RBC 4.97 m/uL (4.30-5.90); RDW 12.3 % (11.5-15.5)
[2021-11-08 02:41] LABS: MCV 93.1 fL (80.0-100.0)
[2021-11-08 02:42] LABS: ALT 21 U/L (4-49); AST 23 U/L (17-59); African American GFR (CKD) >90 (>60 ml/min/1.73 sqM); Albumin 4.2 g/dL (3.5-5.0); Alcohol <10 mg/dL; Alkaline Phosphatase 107 U/L (38-126); Anion Gap 10 mmol/L; Blood Urea Nitrogen 19 mg/dL (9-20); Calcium 8.7 mg/dL (8.4-10.2); Carbon Dioxide 22 mmol/L (22-30); Chloride 103 mmol/L (98-107); Glucose 189 mg/dL (74-99); Magnesium 1.5 mg/dL (1.6-2.3); Non-African American GFR(CKD) >90 (>60 ml/min/1.73 sqM); Phosphorus 3.2 mg/dL (2.5-4.5); Potassium 3.9 mmol/L (3.5-5.1); Sodium 135 mmol/L (137-145); Total Bilirubin 1.5 mg/dL (0.2-1.3); Total Protein 7.4 g/dL (6.3-8.2)
[2021-11-08 03:51] LABS: Lipase 4879 U/L (23-300)
[2021-11-08] MEDS ORDERED: MAGNESIUM OXIDE 400 MG TAB PO STA (03:58)
[2021-11-08] MEDS ORDERED: POTASSIUM BICARBONATE/CIT AC 20 MEQ TABLET.EFF PO ONE (03:58)
[2021-11-08] MEDS ORDERED: MORPHINE SULFATE 4 MG/ML SYRINGE IV PRN (03:59)
[2021-11-08] MEDS ORDERED: ONDANSETRON 4 MG/2 ML VIAL IVP PRN (03:59)
[2021-11-08] MEDS ORDERED: NALOXONE 0.4 MG/ML 1 ML VIAL IV PRN (03:59)
[2021-11-08] MEDS ORDERED: LORazepam 2 MG/ML INJ IV PRN ×3 (04:00)
[2021-11-08] MEDS ORDERED: THIAMINE 100 MG/ML 2 ML VIAL IM STA (04:00)
[2021-11-08] MEDS ORDERED: hydrALAZINE HCL 20 MG/ML 1 ML VIAL IVP PRN (06:02)
[2021-11-08] MEDS ORDERED: hydrALAZINE HCL 25 MG TAB PO PRN (07:14)
[2021-11-08] MEDS: HYDROmorphone 0.5 MG/0.5 ML SYRINGE IVP PRN ×6 (07:27→23:50)
[2021-11-08] MEDS: MAGNESIUM OXIDE 400 MG TAB PO SCH ×2 (07:29→19:32)
[2021-11-08] MEDS: HEPARIN SODIUM,PORCINE/PF 5,000 UNIT/0.5 ML SYRINGE SQ SCH ×2 (07:29→19:32)
[2021-11-08] MEDS: LOSARTAN 50 MG TAB PO SCH (07:29)
[2021-11-08] MEDS: DEXTROSE 5%-0.45% NACL 1,000 ML IV SCH ×2 (07:29→14:04)
[2021-11-08] MEDS: POTASSIUM BICARBONATE/CIT AC 20 MEQ TABLET.EFF PO SCH (07:30)
[2021-11-08] MEDS: MULTIVITAMINS, THERA 1 EACH TAB PO SCH (07:33)
[2021-11-08] MEDS ORDERED: DEXTROSE 50% SYRINGE 50 ML IVP PRN ×2 (08:04)
--- NOTE | 2021-11-08 09:15 | P.HPIM ---
History of Present Illness This is a pleasant 55 years old male with past medical history of alcohol abuse, alcoholic pancreatitis, other medical problems include diabetes mellitus and hypertension Patient was in this facility about 2 months ago and his been evaluated by GI service for the same where he was diagnosed with alcoholic pancreatitis and he was treated conservatively and recommended that he quits from drinking alcohol. However patient continue to drink about a fifth of liquor every day This 71 presents with similar epigastric pain, felt like sharp radiating to the back about 10/10 now is better 6/10. No vomiting. Last bowel movement was yesterday morning. No urinary complaints, no breathing difficulty. No significant chest pain on pr esentation. No headache or weakness or numbness. He denies smoking, or illicit drugs. He still drinks fifth of liquor every day and he was consulted and agrees to quit Hypertensive 193/103 this morning, afebrile. Slightly tachypneic at 20 breaths per minute Az[place]ort leukocytosis at 14,000, sodium 135, creatinine 0.5. Magnesium 1.5. Lipase elevated 4879. Liver enzymes are normal and bilirubin is normal or slightly elevated at 1.5. Alcohol level Less than 10. He was placed on liquid diet, IV fluids and pain medication Review of Systems CONSTITUTIONAL: No fever, no malaise, no fatigue. HEENT: No recent visual problems or hearing problems. Denied any sore throat. CARDIOVASCULAR: No orthopnea, PND, no palpitations, no syncope. PULMONARY: No shortness of breath, no cough, no hemoptysis. GASTROINTESTINAL: No diarrhea, no nausea, no vomiting, . Normoactive bowel sounds. NEUROLOGICAL: No headaches, no weakness, no numbness. HEMATOLOGICAL: Denies any bleeding or petechiae. GENITOURINARY: Denies any burning micturition, frequency, or urgency. MUSCULOSKELETAL/RHEUMATOLOGICAL: Denies any joint pain, swelling, or any muscle pain. ENDOCRINE: Denies any polyuria or polydipsia. Past Medical History Past Medical History: Diabetes Mellitus, GERD/Reflux Additional Past Medical History / Comment(s): ETOH, pancreatitis, IDDM type II, occasional neuropathy R foot, past burn R foot/had skin grafting. History of Any Multi-Drug Resistant Organisms: None Reported Past Surgical History: Orthopedic Surgery Additional Past Surgical History / Comment(s): skin graft to R foot/L thigh skin donor, colonoscopy, L index finger crush injury with surgery. Past Anesthesia/Blood Transfusion Reactions: No Reported Reaction Additional Past Anesthesia/Blood Transfusion Reaction / Comment(s): no hx blood transfusion Past Psychological History: No Psychological Hx Reported Additional Psychological History / Comment(s): Pt resides with his spouse. He is independent. Smoking Status: Never smoker Past Alcohol Use History: Abuse, Heavy Additional Past Alcohol Use History / Comment(s): 1/5 bottle of liquor a day and sometimes more. Past Drug Use History: None Reported - Past Family History Father Family Medical History: Cancer Additional Family Medical History / Comment(s): Skin cancer. Father is . Sister(s) Family Medical History: Cancer Additional Family Medical History / Comment(s): female Mother Family Medical History: No Reported History Additional Family Medical History / Comment(s): Mother is 88yrs old Medications and Allergies Home Medications Medication Instructions Recorded Confirmed Type Pantoprazole [Protonix] 40 mg PO DAILY 12/02/15 09/23/21 History Empagliflozin [Jardiance] 25 mg PO DAILY 10/03/19 09/23/21 History Insulin Degludec [Tresiba 32 units SQ DAILY 05/02/21 09/23/21 History Flextouch U-200 Pen] metFORMIN HCL [Glucophage] 1,000 mg PO BID-W/MEALS 05/02/21 09/23/21 History Atorvastatin Calcium [Lipitor] 20 mg PO HS 09/23/21 09/23/21 History Insulin Aspart [NovoLOG Flexpen] See Protocol SQ AC-TID 09/23/21 09/23/21 H istory Losartan [Cozaar] 50 mg PO DAILY #30 tab 09/25/21 Rx Allergies Allergy/AdvReac Type Severity Reaction Status Date / Time No Known Allergies Allergy Verified 11/08/21 02:09 Physical Exam Vitals: Vital Signs Temp Pulse Pulse Resp BP BP BP 11/08/21 05:28 98.3 F 67 20 193/103 204/126 11/08/21 04:20 98.2 F 77 20 164/95 11/08/21 02:06 98 F 86 22 160/92 Pulse Ox 11/08/21 05:28 99 11/08/21 04:20 96 11/08/21 02:06 98 Intake and Output 11/07/21 11/08/21 11/08/21 22:59 06:59 14:59 Other: # Voids 1 Weight 93.894 kg GENERAL: The patient is alert and oriented x3, not in any acute distress. Well developed, well nourished. HEENT: Pupils are round and equally reacting to light. EOMI. No scleral icterus. No conjunctival pallor. Normocephalic, atraumatic. No pharyngeal erythema. No thyromegaly. CARDIOVASCULAR: S1 and S2 present. No murmurs, rubs, or gallops. PULMONARY: Chest is clear to auscultation, no wheezing or crackles. -ABDOMEN: Soft, epigastric tenderness with no rebound tenderness or guarding, nondistended, normoactive bowel sounds. No palpable organomegaly. MUSCULOSKELETAL: No joint swelling or deformity. EXTREMITIES: No cyanosis, clubbing, or pedal edema. NEUROLOGICAL: Gross neurological examination did not reveal any focal deficits. SKIN: No rashes. No petechiae Results CBC & Chem 7: 11/08/21 02:19 11/08/21 02:19 Labs: Abnormal Lab Results - Last 24 Hours (Table) 11/08/21 11/08/21 Range/Units 02:19 02:19 WBC 14.0 H (3.8-10.6) k/uL Neutrophils # 10.4 H (1.3-7.7) k/uL Sodium 135 L (137-145) mmol/L Creatinine 0.57 L (0.66-1.25) mg/dL Glucose 189 H (74-99) mg/dL Magnesium 1.5 L (1.6-2.3) mg/dL Total Bilirubin 1.5 H (0.2-1.3) mg/dL Lipase 4879 H (23-300) U/L Assessment and Plan Assessment: Recurrent alcoholic pancreatitis Alcohol abuse at-risk of alcohol withdrawal Hypertension with urgency Diabetes mellitus Hypertension Plan: This is a pleasant 55 years old male who presents with PANCREATITIS Continue with bowel rest Continue with pain management Continue with aggressive hydration CIWA protocol and thiamine Continue with losartan and add Norvasc on were reviewed.. Continue same treatment. Continue with symptomatic treatment. Resume home medication. Monitor lytes and vitals. DVT and GI prophylaxis. Further recommendations depends on the clinical course of the patient DVT prophylaxis: Subcutaneous heparin GI Prophylaxis: Ppi
[2021-11-08 11:59] LABS: Glucose,Whole Blood 218 mg/dL (70-110)
[2021-11-08] MEDS: INSULIN ASPART (NovoLOG) 100 UNIT/ML VIAL SQ SCH ×3 (12:23→20:38)
--- NOTE | 2021-11-08 13:44 | XR ---
EXAMINATION TYPE: XR chest 2V DATE OF EXAM: 11/08/2021 COMPARISON: 09/23/2021 INDICATION: Tachypnea, history of pancreatitis TECHNIQUE: Frontal and lateral views of the chest are obtained. FINDINGS: The heart size is normal. The pulmonary vasculature is normal. The lungs are clear. No pleural effusions are evident IMPRESSION: 1. No acute pulmonary process.
[2021-11-08] MEDS: PANTOPRAZOLE 40 MG/10 ML VIAL IV SCH (14:04)
[2021-11-08 16:51] LABS: Glucose,Whole Blood 159 mg/dL (70-110)
[2021-11-08] MEDS: THIAMINE 100 MG TAB PO SCH (16:51)
[2021-11-08 20:36] LABS: Glucose,Whole Blood 195 mg/dL (70-110)
[2021-11-08] MEDS: IBUPROFEN 400 MG TAB PO PRN (23:50)
[2021-11-09] MEDS: DEXTROSE 5%-0.45% NACL 1,000 ML IV SCH ×3 (02:10→21:00)
[2021-11-09 06:47] LABS: Glucose,Whole Blood 151 mg/dL (70-110)
[2021-11-09] MEDS: MAGNESIUM OXIDE 400 MG TAB PO SCH ×2 (07:54→20:32)
[2021-11-09] MEDS: LOSARTAN 50 MG TAB PO SCH (07:54)
[2021-11-09] MEDS: PANTOPRAZOLE 40 MG/10 ML VIAL IV SCH (07:54)
[2021-11-09] MEDS: HEPARIN SODIUM,PORCINE/PF 5,000 UNIT/0.5 ML SYRINGE SQ SCH ×2 (07:54→20:32)
[2021-11-09] MEDS: MULTIVITAMINS, THERA 1 EACH TAB PO SCH (07:55)
[2021-11-09] MEDS: THIAMINE 100 MG TAB PO SCH ×2 (07:55→17:09)
[2021-11-09] MEDS: POTASSIUM BICARBONATE/CIT AC 20 MEQ TABLET.EFF PO SCH (07:55)
[2021-11-09] MEDS: INSULIN ASPART (NovoLOG) 100 UNIT/ML VIAL SQ SCH ×4 (07:55→20:32)
[2021-11-09 09:25] LABS: Basophils # (A) 0.03 X 10*3/uL (0.00-0.10); Basophils % (A) 0.3 %; Eosinophils # (A) 0.26 X 10*3/uL (0.04-0.35); Eosinophils % (A) 2.8 %; HCT 40.9 % (39.6-50.0); HGB 13.6 g/dL (13.0-17.0); Immature Grans, Automated 0.2 %; Lymphocytes # (A) 1.91 X 10*3/uL (0.90-5.00); Lymphocytes % (A) 20.7 %; MCH 31.8 pg (27.0-32.0); MCHC 33.3 g/dL (32.0-37.0); MCV 95.6 fL (80.0-97.0); Mean Platelet Volume 10.3 fL (9.5-12.2); Monocytes # (A) 0.57 X 10*3/uL (0.20-1.00); Monocytes % (A) 6.2 %; NRBC Per 100 WBC 0 /100 WBCS (0.0-0.0); Neutrophils # (A) 6.45 X 10*3/uL (1.80-7.70); Neutrophils % (A) 69.8 %; Platelet Count 152 X 10*3/uL (140-440); RBC 4.28 X 10*6/uL (4.40-5.60); RDW 12.1 % (11.5-14.5); WBC 9.24 X 10*3/uL (4.50-10.00)
[2021-11-09 09:29] LABS: African American GFR (CKD) 123.9 (60.0-200.0); Albumin 3.6 g/dL (3.8-4.9); Albumin/Globulin Ratio 1.71 (1.60-3.17); Anion Gap 6.5 mmol/L (10.00-18.00); BUN/Creat Ratio 12.85 Ratio (12.00-20.00); Calcium 8.6 mg/dL (8.7-10.3); Carbon Dioxide 28.3 mmol/L (20.0-27.5); Globulin 2.1 g/dL (1.6-3.3); Non-African American GFR(CKD) 106.9 (60.0-200.0); Phosphorus 2.6 mg/dL (2.4-5.1); Total Protein 5.7 g/dL (6.2-8.2)
[2021-11-09] MEDS ORDERED: HYDROcodone/APAP 5-325MG 1 EACH TAB PO PRN (10:19)
[2021-11-09] MEDS: DOCUSATE 100 MG CAP PO SCH ×2 (10:30→20:32)
[2021-11-09 11:37] LABS: Glucose,Whole Blood 177 mg/dL (70-110)
[2021-11-09] MEDS: IOPAMIDOL CONTRAST (ORAL USE) VIAL PO PRN ×2 (16:28→17:40)
[2021-11-09] MEDS: IBUPROFEN 400 MG TAB PO PRN (16:33)
[2021-11-09 16:44] LABS: Glucose,Whole Blood 151 mg/dL (70-110)
[2021-11-09 17:27] LABS: Appearance,Urine Clear (Clear); Bilirubin,Urine Negative (Negative); Blood,Urine Negative (Negative); Color,Urine Colorless; Glucose,Urine (UA) 2+ (Negative); Ketones,Urine Trace (Negative); Leukocyte Esterase,Urine Negative (Negative); Nitrite,Urine Negative (Negative); Protein,Urine Negative (Negative); Specific Gravity,Urine 1.003 (1.001-1.035); Urobilinogen,Urine <2.0 mg/dL (<2.0)
--- NOTE | 2021-11-09 18:36 | CT ---
EXAMINATION TYPE: CT abdomen pelvis w con DATE OF EXAM: 11/09/2021 COMPARISON: 11/03/2020 HISTORY: right sided abdominal pain CT DLP: 1368.8 mGycm Automated exposure control for dose reduction was used. CONTRAST: Performed with IV Contrast, patient injected with 100 mL of Isovue 300. Lung bases show mild subsegmental atelectasis left lower lobe. Heart size is normal. No pericardial e ffusion. Liver spleen and stomach appear intact. There is some mild fat stranding around the tail of the pancreas. No pancreatic mass. Gallbladder appears normal. The bile ducts are not dilated. There is no adrenal mass. Kidneys show satisfactory contrast opacification. There is no hydronephrosi s. The ureters are not dilated. Delayed images show normal renal excretion. There is no retroperitone al adenopathy. There are small amount of free fluid in the abdomen. Bladder distends smoothly. No ing uinal hernia. No pelvic mass. Appendix not seen. No sign of thickened appendix. The lumbar vertebrae have normal alignment. No compression fracture. Disc spaces are normal. Facet keyon ints are intact. Bony pelvis is intact. IMPRESSION: There is some mild fat stranding around the tail of the pancreas could be acute pancreatitis. There is minimal abdominal ascites fluid.
--- NOTE | 2021-11-09 18:57 | P.PN ---
Subjective This is a pleasant 55 years old male with past medical history of alcohol abuse, alcoholic pancreatitis, other medical problems include diabetes mellitus and hypertension Patient was in this facility about 2 months ago and his been evaluated by GI service for the same where he was diagnosed with alcoholic pancreatitis and he was treated conservatively and recommended that he quits from drinking alcohol. However patient continue to drink about a fifth of liquor every day This 71 presents with similar epigastric pain, felt like sharp radiating to the back about 10/10 now is better 6/10. No vomiting. Last bowel movement was yesterday morning. No urinary complaints, no breathing difficulty. No significant chest pain on presentation. No headache or weakness or numbness. He denies smoking, or illicit drugs. He still drinks fifth of liquor every day and he was consulted and agrees to quit Hypertensive 193/103 this morning, afebrile. Slightly tachypneic at 20 breaths per minute Azmacort leukocytosis at 14,000, sodium 135, creatinine 0.5. Magnesium 1.5. Lipase elevated 4879. Liver enzymes are normal and bilirubin is normal or sli ghtly elevated at 1.5. Alcohol level Less than 10. He was placed on liquid diet, IV fluids and pain medication 11/09/2021 Patient's symptoms significantly improved and he wants diet to be advanced up to regular diet which is ordered to gradually. His abdominal pain is improving, no nausea vomiting, he has normal bowel movement and ask for laxative and Colace has been started for him. He reports abdominal pain as 1-2/10 in severity today. No signs of alcohol withdrawal Patient today developed fever of 100.3, not sure if antibiotics is indicated for him therefore was going to check a pro-calcitonin and asked for infectious disease team consult. As fever could be related to pancreatitis. Patient underwent CT of the abdomen and pelvis was showing mild stranding around the tail of the pancreas consistent with pancreatitis associated with mild ascites. Leukocytosis improved and glucose controlled. Lipase came down significantly. IV fluids: The lower to 50 mL per hour Objective - Vital Signs Vital signs: Vital Signs Temp 98.6 F 11/09/21 08:00 Pulse 69 11/09/21 08:00 Resp 18 11/09/21 08:00 BP 145/83 11/09/21 08:00 Pulse Ox 98 11/09/21 08:00 FiO2 Intake & Output 0711/09/21 11/09/21 18:59 06:59 18:59 Other: # Voids 1 1 1 - Exam GENERAL: The patient is alert and oriented x3, not in any acute distress. Well developed, well nourished. HEENT: Pupils are round and equally reacting to light. EOMI. No scleral icterus. No conjunctival pallor. Normocephalic, atraumatic. No pharyngeal erythema. No thyromegaly. CARDIOVASCULAR: S1 and S2 present. No murmurs, rubs, or gallops. PULMONARY: Chest is clear to auscultation, no wheezing or crackles. -ABDOMEN: Soft, mild and resolving epigastric tenderness, no guarding or rebound tenderness, nondistended, normoactive bowel sounds. No palpable organomegaly. MUSCULOSKELETAL: No joint swelling or deformity. EXTREMITIES: No cyanosis, clubbing, or pedal edema. NEUROLOGICAL: Gross neurological examination did not reveal any focal deficits. SKIN: No rashes. no petechiae. - Labs CBC & Chem 7: 11/09/21 05:37 11/09/21 05:37 Labs: Abnormal Lab Results - Last 24 Hours (Table) 11/08/21 11/08/21 11/09/21 Range/Units 16:49 20:32 05:37 RBC 4.28 L (4.40-5.60) X 10*6/uL Sodium (135-145) mmol/L Carbon Dioxide (20.0-27.5) mmol/L Anion Gap (10.00-18.00) mmol/L Glucose (70-110) mg/dL POC Glucose (mg/dL) 159 H 195 H (70-110) mg/dL Calcium (8.7-10.3) mg/dL Total Protein (6.2-8.2) g/dL Albumin (3.8-4.9) g/dL Lipase (14-60) U/L 11/09/21 11/09/21 11/09/21 Range/Units 05:37 06:46 11:36 RBC (4.40-5.60) X 10*6/uL Sodium 133 L (135-145) mmol/L Carbon Dioxide 28.3 H (20.0-27.5) mmol/L Anion Gap 6.50 L (10.00-18.00) mmol/L Glucose 154 H (70-110) mg/dL POC Glucose (mg/dL) 151 H 177 H (70-110) mg/dL Calcium 8.6 L (8.7-10.3) mg/dL Total Protein 5.7 L (6.2-8.2) g/dL Albumin 3.6 L (3.8-4.9) g/dL Lipase 219 H (14-60) U/L Assessment and Plan Assessment: Recurrent alcoholic pancreatitis Fever, could be related to his entry pancreatitis Alcohol abuse at-risk of alcohol withdrawal Hypertension with urgency Diabetes mellitus Hypertension Plan: This is a pleasant 55 years old male who presents with PANCREATITIS Advance diet as tolerated per patient request. Continue with pain management Continue with gentle IV hydration Consults infectious disease team for fever CIWA protocol and thiamine Continue with losartan and add Norvasc on were reviewed.. Continue same treatment. Continue with symptomatic treatment. Resume home medication. Monitor lytes and vitals. DVT and GI prophylaxis. Further recommendations depends on the clinical course of the patient DVT prophylaxis: Subcutaneous heparin GI Prophylaxis: Ppi
[2021-11-09 20:25] LABS: Glucose,Whole Blood 272 mg/dL (70-110)
[2021-11-09] MEDS: AMPICILLIN-SULBACTAM 3 GM in SODIUM CHLORIDE 0.9% 100 ML IVPB SCH (22:50)
[2021-11-10] MEDS: AMPICILLIN-SULBACTAM 3 GM in SODIUM CHLORIDE 0.9% 100 ML IVPB SCH ×4 (04:58→22:26)
[2021-11-10 07:23] LABS: Glucose,Whole Blood 179 mg/dL (70-110)
[2021-11-10] MEDS: DEXTROSE 5%-0.45% NACL 1,000 ML IV SCH ×2 (07:58→15:56)
--- NOTE | 2021-11-10 07:58 | P.PN ---
Subjective Progress Note Date: 11/10/21 Principal diagnosis: Acute pancreatitis The patient's 55-year-old white male who struggles with alcoholism comes in with recurrent pancreatitis. The patient still states abdominal pain but seems to be tolerating minimal diet. He was at fever spike and is now placed on antibiotic Therapy. Objective - Vital Signs Vital signs: Vital Signs Temp 98.6 F 11/10/21 07:31 Pulse 75 11/10/21 07:31 Resp 23 11/10/21 07:31 BP 166/92 11/10/21 07:31 Pulse Ox 96 11/10/21 07:31 FiO2 Intake & Output 11/09/21 11/10/21 11/10/21 18:59 06:59 18:59 Intake Total 200 Balance 200 Intake: Intake, IV Titration 200 Amount Ampicillin-Sulbactam 3 gm 200 In Sodium Chloride 0.9% 100 ml @ 200 mls/hr IVPB Q6H [facility] Rx#:[id number] Other: Voiding Method Toilet # Voids 1 - Constitutional General appearance: Present: obese - EENT Eyes: Absent: abnormal pupil - Neck Neck: Absent: lymphadenopathy - Respiratory Respiratory: bilateral: CTA - Cardiovascular Rhythm: regular Heart sounds: normal: S1, S2 Abnormal Heart Sounds: Absent: S3 Gallop - Gastrointestinal General gastrointestinal: Present: soft, tenderness Localized gastrointestinal: tender: diffuse - Neurologic Neurologic: Present: CNII-XII intact - Labs CBC & Chem 7: 11/09/21 05:37 11/09/21 05:37 Labs: Abnormal Lab Results - Last 24 Hours (Table) 11/09/21 11/09/21 11/09/21 Range/Units 05:37 05:37 11:36 RBC 4.28 L (4.40-5.60) X 10*6/uL Sodium 133 L (135-145) mmol/L Carbon Dioxide 28.3 H (20.0-27.5) mmol/L Anion Gap 6.50 L (10.00-18.00) mmol/L Glucose 154 H (70-110) mg/dL POC Glucose (mg/dL) 177 H (70-110) mg/dL Calcium 8.6 L (8.7-10.3) mg/dL C-Reactive Protein (<1.0) mg/dL Total Protein 5.7 L (6.2-8.2) g/dL Albumin 3.6 L (3.8-4.9) g/dL Lipase 219 H (14-60) U/L Procalcitonin (0.02-0.09) ng/mL Urine Glucose (UA) (Negative) Urine Ketones (Negative) 11/09/21 11/09/21 11/09/21 Range/Units 16:20 16:20 16:43 RBC (4.40-5.60) X 10*6/uL Sodium (135-145) mmol/L Carbon Dioxide (20.0-27.5) mmol/L Anion Gap (10.00-18.00) mmol/L Glucose (70-110) mg/dL POC Glucose (mg/dL) 151 H (70-110) mg/dL Calcium (8.7-10.3) mg/dL C-Reactive Protein 16.9 H (<1.0) mg/dL Total Protein (6.2-8.2) g/dL Albumin (3.8-4.9) g/dL Lipase (14-60) U/L Procalcitonin 0.11 H (0.02-0.09) ng/mL Urine Glucose (UA) (Negative) Urine Ketones (Negative) 11/09/21 11/09/21 11/10/21 Range/Units 17:24 20:23 07:22 RBC (4.40-5.60) X 10*6/uL Sodium (135-145) mmol/L Carbon Dioxide (20.0-27.5) mmol/L Anion Gap (10.00-18.00) mmol/L Glucose (70-110) mg/dL POC Glucose (mg/dL) 272 H 179 H (70-110) mg/dL Calcium (8.7-10.3) mg/dL C-Reactive Protein (<1.0) mg/dL Total Protein (6.2-8.2) g/dL Albumin (3.8-4.9) g/dL Lipase (14-60) U/L Procalcitonin (0.02-0.09) ng/mL Urine Glucose (UA) 2+ H (Negative) Urine Ketones Trace H (Negative) Assessment and Plan (1) Alcoholic pancreatitis Current Visit: Yes Status: Acute Code(s): K85.20 - ALCOHOL INDUCED ACUTE PANCREATITIS WITHOUT NECROSIS OR INFCT SNOMED Code(s): 867435002 Plan: Continue current regimen of treatment. Check amylase and lipase in a.m. Anticipate discharge if stabilizing within the next 24-48 hours. Continue current IV antibiotic therapy.
[2021-11-10] MEDS: PANTOPRAZOLE 40 MG TABLET PO SCH (08:03)
[2021-11-10] MEDS: MULTIVITAMINS, THERA 1 EACH TAB PO SCH (08:03)
[2021-11-10] MEDS: THIAMINE 100 MG TAB PO SCH ×2 (08:03→16:02)
[2021-11-10] MEDS: MAGNESIUM OXIDE 400 MG TAB PO SCH ×2 (08:03→21:11)
[2021-11-10] MEDS: DOCUSATE 100 MG CAP PO SCH ×2 (08:03→21:11)
[2021-11-10] MEDS: LOSARTAN 50 MG TAB PO SCH (08:03)
[2021-11-10] MEDS: HEPARIN SODIUM,PORCINE/PF 5,000 UNIT/0.5 ML SYRINGE SQ SCH ×2 (08:03→21:11)
[2021-11-10] MEDS: INSULIN ASPART (NovoLOG) 100 UNIT/ML VIAL SQ SCH ×4 (08:03→21:11)
[2021-11-10] MEDS: POTASSIUM BICARBONATE/CIT AC 20 MEQ TABLET.EFF PO SCH (08:03)
[2021-11-10] MEDS: HYDROmorphone 0.5 MG/0.5 ML SYRINGE IVP PRN ×3 (08:04→17:12)
[2021-11-10 11:04] LABS: Glucose,Whole Blood 198 mg/dL (70-110)
[2021-11-10 15:54] LABS: Glucose,Whole Blood 295 mg/dL (70-110)
[2021-11-10 20:12] LABS: Glucose,Whole Blood 265 mg/dL (70-110)
--- NOTE | 2021-11-10 23:51 | P.CONS ---
History of Present Illness - Reason for Consult Consult date: 11/09/21 Fever Requesting physician: Vishal E Sheet - Chief Complaint Abdominal pain x 2 days - History of Present Illness Patient is a 55 year old male with a past medical history significant for coronary abuse history for: Pancreatitis hypertension and diabetes mellitus presenting to the hospital yesterday for evaluation of abdominal pain apparently the patient has been drinking about a fifth of alcohol Per day, patient started having pain in the epigastric area for a day before presentation to the hospital patient would describe the pain to be sharp almost 10 out of 10 in severity when he presented to the hospital patient felt nauseated but no vomiting and denies having any diarrhea or constipation, patient of presentation to the hospital was afebrile however he did spike a fever this afternoon that has prompted this infectious disease consultation, patient white count was elevated to 14,000 on presentation hospital however white count is normal this morning the patient did have a lipase of 4879 which is down to 219 today, the patient is feeling slightly better as well as abdominal pain is concerned still have some nausea but no vomiting denies any chest pain or shortness of breath or cough and no urinary symptoms, patient have a negative UA and chest x-ray reported negative for acute Cardiopulmonary pulses Review of Systems Positive point has been mentioned in the HPI rest of the systems are negative Past Medical History Past Medical History: Diabetes Mellitus, GERD/Reflux Additional Past Medical History / Comment(s): ETOH, pancreatitis, IDDM type II, occasional neuropathy R foot, past burn R foot/had skin grafting. History of Any Multi-Drug Resistant Organisms: None Reported Past Surgical History: Orthopedic Surgery Additional Past Surgical History / Comment(s): skin graft to R foot/L thigh skin donor, colonoscopy, L index finger crush injury with surgery. Past Anesthesia/Blood Transfusion Reactions: No Reported Reaction Additional Past Anesthesia/Blood Transfusion Reaction / Comm: no hx blood transfusion Past Psychological History: No Psychological Hx Reported Additional Psychological History / Comment(s): Pt resides with his spouse. He is independent. Smoking Status: Never smoker Past Alcohol Use History: Abuse, Heavy Additional Past Alcohol Use History / Comment(s): 1/5 bottle of liquor a day and sometimes more. Past Drug Use History: None Reported - Past Family History Father Family Medical History: Cancer Additional Family Medical History / Comment(s): Skin cancer. Father is . Sister(s) Family Medical History: Cancer Additional Family Medical History / Comment(s): female Mother Family Medical History: No Reported History Additional Family Medical History / Comment(s): Mother is 88yrs old Medications and Allergies Home Medications Medication Instructions Recorded Confirmed Type Pantoprazole [Protonix] 40 mg PO DAILY 12/02/15 11/08/21 History Empagliflozin [Jardiance] 25 mg PO DAILY 10/03/19 11/08/21 History Insulin Degludec [Tresiba 32 units SQ DAILY 05/02/21 11/08/21 History Flextouch U-200 Pen] metFORMIN HCL [Glucophage] 1,000 mg PO BID-W/MEALS 05/02/21 11/08/21 History Atorvastatin Calcium [Lipitor] 20 mg PO HS 09/23/21 11/08/21 History Insulin Aspart [NovoLOG Flexpen] See Protocol SQ AC-TID 09/23/21 11/08/21 History Losartan [Cozaar] 50 mg PO DAILY #30 tab 09/25/21 11/08/21 Rx Allergies Allergy/AdvReac Type Severity Reaction Status Date / Time No Known Allergies Allergy Verified 11/08/21 11:36 Physical Exam Vitals: Vital Signs Temp Pulse Resp BP Pulse Ox 11/09/21 14:00 100.3 F H 84 18 149/91 98 11/09/21 08:00 98.6 F 69 18 145/83 98 11/09/21 00:40 98.7 F 82 15 137/75 95 11/08/21 19:35 98.3 F 80 16 166/65 96 Intake and Output 11/09/21 11/09/21 11/09/21 06:59 14:59 22:59 Other: # Voids 1 1 GENERAL DESCRIPTION: Middle-aged male lying in bed, no distress. No tachypnea or accessory muscle of respiration use. HEENT: Shows Pallor , no scleral icterus. Oral mucous membrane is dry. No pharyngeal erythema or thrush NECK: Trachea central, no thyromegaly. LUNGS: Unlabored breathing. Clear to auscultation anteriorly. No wheeze or crackle. HEART: S1, S2, regular rate and rhythm. No loud murmur ABDOMEN: Soft, mild epigastric tenderness , no guarding or rigidity, no organomegaly EXTREMITIES: No edema of feet. SKIN: No rash, no masses palpable. NEUROLOGICAL: The patient is awake, alert, oriented x3, mood and affect normal. Results CBC & Chem 7: 11/09/21 05:37 11/09/21 05:37 Labs: Abnormal Lab Results - Last 24 Hours (Table) 11/08/21 11/08/21 11/09/21 Range/Units 16:49 20:32 05:37 RBC 4.28 L (4.40-5.60) X 10*6/uL Sodium (135-145) mmol/L Carbon Dioxide (20.0-27.5) mmol/L Anion Gap (10.00-18.00) mmol/L Glucose (70-110) mg/dL POC Glucose (mg/dL) 159 H 195 H (70-110) mg/dL Calcium (8.7-10.3) mg/dL Total Protein (6.2-8.2) g/dL Albumin (3.8-4.9) g/dL Lipase (14-60) U/L 11/09/21 11/09/21 11/09/21 Range/Units 05:37 06:46 11:36 RBC (4.40-5.60) X 10*6/uL Sodium 133 L (135-145) mmol/L Carbon Dioxide 28.3 H (20.0-27.5) mmol/L Anion Gap 6.50 L (10.00-18.00) mmol/L Glucose 154 H (70-110) mg/dL POC Glucose (mg/dL) 151 H 177 H (70-110) mg/dL Calcium 8.6 L (8.7-10.3) mg/dL Total Protein 5.7 L (6.2-8.2) g/dL Albumin 3.6 L (3.8-4.9) g/dL Lipase 219 H (14-60) U/L Assessment and Plan (1) Fever Current Visit: Yes Status: Acute Code(s): R50.9 - FEVER, UNSPECIFIED SNOMED Code(s): 007981765 Plan: 1patient with a low-grade fever source is likely abdominal and this patient who did have a significant history of drinking and presented with abdominal pain with elevated lipase like this into acute pancreatitis secondary to alcoholism Patient currently do not have any other obvious focus of infection chest x-ray was negative urine is negative, no evidence of any cellulitis 2- we will obtain a CT of abdominal pelvis to better define underlying pathology 3-empirically start patient on Unasyn while waiting further workup to be finalize We will follow on clinical condition and cultures to further adjust medication if needed Thank you for this consultation will follow this patient with you Time with Patient: Greater than 30
--- NOTE | 2021-11-10 23:54 | P.PN ---
Subjective Progress Note Date: 11/10/21 Principal diagnosis: Fever Patient is 55-year-old male with significant history of alcoholism and history of pancreatitis presented to the hospital abdominal pain has been diagnosed with the pancreatitis did have a fever CT abdominal pelvis tissues pancreatitis but no evidence of any abscess. On today's evaluation and that is 11/10/2021, the patient denies having any fever or chills, the patient abdominal pain has decreased in intensity denies having any nausea vomiting or chest pain shortness of breath or cough Objective - Vital Signs Vital signs: Vital Signs Temp 98.6 F 11/10/21 07:31 Pulse 75 11/10/21 07:31 Resp 23 11/10/21 07:31 BP 166/92 11/10/21 07:31 Pulse Ox 96 11/10/21 07:31 FiO2 Intake & Output 11/09/21 11/10/21 11/10/21 18:59 06:59 18:59 Intake Total 200 Balance 200 Intake: Intake, IV Titration 200 Amount Ampicillin-Sulbactam 3 gm 200 In Sodium Chloride 0.9% 100 ml @ 200 mls/hr IVPB Q6H [facility] Rx#:[id number] Other: Voiding Method Toilet # Voids 1 - Exam GENERAL DESCRIPTION: Middle-aged male lying in bed in no distress RESPIRATORY SYSTEM: Unlabored breathing , decreased breath sounds at bases HEART: S1 S2 regular rate and rhythm , ABDOMEN: Soft , no tenderness EXTREMITIES: No edema feet - Labs CBC & Chem 7: 11/09/21 05:37 11/09/21 05:37 Labs: Abnormal Lab Results - Last 24 Hours (Table) 11/09/21 11/09/21 11/09/21 Range/Units 16:20 16:20 16:43 POC Glucose (mg/dL) 151 H (70-110) mg/dL C-Reactive Protein 16.9 H (<1.0) mg/dL Procalcitonin 0.11 H (0.02-0.09) ng/mL Urine Glucose (UA) (Negative) Urine Ketones (Negative) 11/09/21 11/09/21 11/10/21 Range/Units 17:24 20:23 : POC Glucose (mg/dL) 272 H 179 H (70-110) mg/dL C-Reactive Protein (<1.0) mg/dL Procalcitonin (0.02-0.09) ng/mL Urine Glucose (UA) 2+ H (Negative) Urine Ketones Trace H (Negative) 11/10/21 Range/Units 11:00 POC Glucose (mg/dL) 198 H (70-110) mg/dL C-Reactive Protein (<1.0) mg/dL Procalcitonin (0.02-0.09) ng/mL Urine Glucose (UA) (Negative) Urine Ketones (Negative) Assessment and Plan (1) Fever Current Visit: Yes Status: Acute Code(s): R50.9 - FEVER, UNSPECIFIED SNOMED Code(s): 185814025 Plan: 1patient with a low-grade fever source is likely abdominal and this patient who did have a significant history of drinking and presented with abdominal pain with elevated lipase like this into acute pancreatitis secondary to alcoholism Patient currently do not have any other obvious focus of infection chest x-ray was negative urine is negative, no evidence of any cellulitis 2- CT of abdominal pelvis showed pancreatitis but no abscess or pseudocyst Patient to continue with Unasyn while waiting for cultures to be finalize Time with Patient: Less than 30
[2021-11-11] MEDS: DEXTROSE 5%-0.45% NACL 1,000 ML IV SCH ×2 (03:45→12:08)
[2021-11-11] MEDS: AMPICILLIN-SULBACTAM 3 GM in SODIUM CHLORIDE 0.9% 100 ML IVPB SCH ×2 (06:07→11:29)
[2021-11-11 06:18] LABS: HCT 40.8 % (39.0-53.0); HGB 13.9 gm/dL (13.0-17.5); MCH 32.9 pg (25.0-35.0); MCV 96.8 fL (80.0-100.0); Mean Platelet Volume 7.8; Platelet Count 183 k/uL (150-450); RBC 4.22 m/uL (4.30-5.90); RDW 12.2 % (11.5-15.5); WBC 7.2 k/uL (3.8-10.6)
[2021-11-11 06:32] LABS: ALT 44 U/L (4-49); AST 54 U/L (17-59); African American GFR (CKD) >90 (>60 ml/min/1.73 sqM); Albumin 3.7 g/dL (3.5-5.0); Albumin/Globulin Ratio 1.3; Alkaline Phosphatase 208 U/L (38-126); Amylase 99 U/L (30-110); Anion Gap 5 mmol/L; Blood Urea Nitrogen 12 mg/dL (9-20); Calcium 8.8 mg/dL (8.4-10.2); Carbon Dioxide 31 mmol/L (22-30); Chloride 100 mmol/L (98-107); Globulin 2.9 g/dL; Glucose 237 mg/dL (74-99); Lipase 1382 U/L (23-300); Non-African American GFR(CKD) >90 (>60 ml/min/1.73 sqM); Sodium 136 mmol/L (137-145); Total Bilirubin 0.5 mg/dL (0.2-1.3); Total Protein 6.6 g/dL (6.3-8.2)
[2021-11-11 06:51] LABS: Glucose,Whole Blood 226 mg/dL (70-110)
[2021-11-11 07:40] VITALS: BP 152/77; PULSE 74; RESP 16; TEMP 97.6
[2021-11-11] MEDS: INSULIN ASPART (NovoLOG) 100 UNIT/ML VIAL SQ SCH ×2 (08:57→12:09)
[2021-11-11] MEDS: PANTOPRAZOLE 40 MG TABLET PO SCH (08:59)
[2021-11-11] MEDS: MAGNESIUM OXIDE 400 MG TAB PO SCH (09:00)
[2021-11-11] MEDS: THIAMINE 100 MG TAB PO SCH (09:00)
[2021-11-11] MEDS: LOSARTAN 50 MG TAB PO SCH (09:00)
[2021-11-11] MEDS: DOCUSATE 100 MG CAP PO SCH (09:00)
[2021-11-11] MEDS: POTASSIUM BICARBONATE/CIT AC 20 MEQ TABLET.EFF PO SCH (09:01)
[2021-11-11] MEDS: HEPARIN SODIUM,PORCINE/PF 5,000 UNIT/0.5 ML SYRINGE SQ SCH (09:01)
[2021-11-11] MEDS: MULTIVITAMINS, THERA 1 EACH TAB PO SCH (09:01)
== END 2021-11-11 12:17 | disposition home or self-care (01) | DRG 439 ==
LOC: EC 02:06 → 4SSUR 03:59
PROVIDERS: ADMIT Family Medicine; ATTEND Family Medicine
DX: K86.0 Alcohol-induced chronic pancreatitis (principal); R18.8 Other ascites; E11.40 Type 2 diabetes mellitus with diabetic neuropathy, unspecified; I16.0 Hypertensive urgency; I10 Essential (primary) hypertension; K21.9 Gastro-esophageal reflux disease without esophagitis; Z79.4 Long term (current) use of insulin; F10.20 Alcohol dependence, uncomplicated; Z79.84 Long term (current) use of oral hypoglycemic drugs; Z79.899 Other long term (current) drug therapy; Z80.8 Family history of malignant neoplasm of other organs or systems
CPT/HCPCS: 36415; 71046; 74177; 80053; 80320; 81003; 82150; 83036; 83690; 83735; 84100; 84145; 85025; 85027; 86140; 87040; 93005; 96361; 96372; 96374; 96375; 96376; 99285

== ENCOUNTER → 2022-02-18 | Outpatient (CLI) | payer BC ==
--- NOTE | 2022-02-18 19:55 | CA ---
Exercise Stress Test Report Name: Meño Sommers Exam Date: 02/18/2022 09:08 Exam Location: [place] Stress Ht (in): 71 Wt (lb): 208 BSA: 2.14 Ordering Phys: Bebo Kennedy MD Referring Phys: Bebo Kennedy MD Technologist: Robert Fournier Age: 56 Gender: M : 1965 Procedure CPT: Indications: R07.9 CHEST PAIN ICD-10 Codes: Patient History: CHEST PAIN, NUMBNESS IN FACE/NECK, HTN, DIABETIC, ELEVATED CHOLESTEROL LEVELS, FAMILY HX OF HEART DISEASE Medications: METFORMIN, ATORVASTATIN, PANTOPRAZOLE, LOSARTAN, JARDIONCE, TRESIBA, NOVOLOG Meds past 24 hrs: Pretest Chest Pain: STRESS TEST [place] Protocol Exercise Duration (min:sec): 10:[address] Depressions (mm): Angina Score: Lyon Score: Resting HR (bpm): 69 Peak HR (bpm): 151 Resting BP (mmHg): 129 / 78 Peak BP (mmHg): 191 / 69 MPHR: 165 Target HR: 140 % MPHR: 92 METS: 11.8 Total Dose: Peak Dose: Atropine: Double Product: 58297 BP Response: Stress Termination: TARGET HR REACHED/MAX EXERTION Stress Symptoms: CHEST PAIN Stress Summary: ECG ANALYSIS Resting ECG: Stress ECG: CONCLUSIONS Excellent exercise tolerance Normal EKG in response to exercise Dr. Yaw Lam MD (Electronically Signed) Final Date: 18 February 2022 19:54
== END | disposition home or self-care (01) ==
LOC: RADNMMAIN 08:25
PROVIDERS: ATTEND Family Medicine
DX: R07.9 Chest pain, unspecified (principal)
CPT/HCPCS: 93017

== ENCOUNTER 2023-05-22 18:14 | Observation (INO) | payer BC ==
[2023-05-22] MEDS: ONDANSETRON 4 MG/2 ML VIAL IVP STA (18:41)
[2023-05-22] MEDS: HYDROmorphone 1 MG/ML 1 ML SYRINGE IVP STA (18:41)
[2023-05-22] MEDS: FAMOTIDINE 20 MG/2 ML VIAL IV STA (18:41)
[2023-05-22] MEDS: SODIUM CHLORIDE 0.9% 1,000 ML IV STA (18:42)
[2023-05-22 18:49] LABS: Basophils # (A) 0.1 k/uL (0-0.2); Basophils % (A) 0 %; Eosinophils # (A) 0.2 k/uL (0-0.7); Eosinophils % (A) 1 %; HCT 47.4 % (39.0-53.0); HGB 16.6 gm/dL (13.0-17.5); Lymphocytes # (A) 3.3 k/uL (1.0-4.8); Lymphocytes % (A) 20 %; MCH 33.3 pg (25.0-35.0); MCHC 35.1 g/dL (31.0-37.0); MCV 94.9 fL (80.0-100.0); Mean Platelet Volume 7.2; Monocytes # (A) 0.7 k/uL (0-1.0); Monocytes % (A) 4 %; Neutrophils # (A) 12.4 k/uL (1.3-7.7); Neutrophils % (A) 74 %; Platelet Count 233 k/uL (150-450); RBC 4.99 m/uL (4.30-5.90); WBC 16.8 k/uL (3.8-10.6)
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
[2023-05-22 19:05] LABS: ALT 21 U/L (4-49); AST 25 U/L (17-59); African American GFR (CKD) >90 (>60 ml/min/1.73 sqM); Albumin 4.2 g/dL (3.5-5.0); Alkaline Phosphatase 99 U/L (38-126); Anion Gap 8 mmol/L; Blood Urea Nitrogen 25 mg/dL (9-20); Carbon Dioxide 25 mmol/L (22-30); Chloride 101 mmol/L (98-107); Glucose 112 mg/dL (74-99); Lipase 1240 U/L (23-300); Magnesium 1.7 mg/dL (1.6-2.3); Non-African American GFR(CKD) >90 (>60 ml/min/1.73 sqM); Potassium 3.5 mmol/L (3.5-5.1); Sodium 134 mmol/L (137-145); Total Bilirubin 0.7 mg/dL (0.2-1.3); Total Protein 7.4 g/dL (6.3-8.2)
[2023-05-22 19:14] LABS: INR 0.9 (<1.2); Partial Thromboplastin Time 21.2 sec (22.0-30.0); Prothrombin Time 10.3 sec (10.0-12.5)
[2023-05-22] MEDS ORDERED: LORazepam 2 MG/ML INJ IV PRN ×2 (19:30)
[2023-05-22] MEDS ORDERED: HYDROmorphone 0.5 MG/0.5 ML SYRINGE IVP PRN (19:31)
[2023-05-22] MEDS ORDERED: NALOXONE 0.4 MG/ML 1 ML VIAL IV PRN (19:31)
--- NOTE | 2023-05-22 19:38 | XR ---
EXAM: XR chest 1V portable CLINICAL INDICATION:Male, 57 years old with history of chest pain; [facility] COMPARISON: 11/08/2021 TECHNIQUE: Chest single view. FINDINGS: Lines/tubes/devices: EKG leads overlie the chest. No indwelling lines are seen. Cardiomediastinum: Cardiac silhouette appears upper normal in size. Unremarkable mediastinal silhouette. Vasculature: No increased pulmonary vasculature. Lungs/pleura: No consolidation, sizeable effusion, or visible pneumothorax. Bones/soft tissues: Bony thorax appears grossly intact as seen. Mild degenerative changes. Regional soft tissues appear u nremarkable. IMPRESSION: No acute cardiopulmonary findings. No significant interval change.
[2023-05-22] MEDS: SODIUM CHLORIDE 0.9% 1,000 ML IV SCH (19:47)
[2023-05-22] MEDS: THIAMINE 100 MG/ML 2 ML VIAL IM STA (19:50)
[2023-05-22] MEDS: hydrALAZINE HCL 20 MG/ML 1 ML VIAL IVP STA (20:27)
[2023-05-22] MEDS: HYDROmorphone 1 MG/ML 1 ML SYRINGE IVP PRN (21:33)
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
[2023-05-23] MEDS: ONDANSETRON 4 MG/2 ML VIAL IVP PRN (05:35)
[2023-05-23] MEDS: LORazepam 2 MG/ML INJ IV PRN (05:44)
[2023-05-23 07:57] LABS: Glucose,Whole Blood 93 mg/dL (70-110)
[2023-05-23] MEDS: THIAMINE 100 MG TAB PO SCH (08:40)
[2023-05-23] MEDS: PANTOPRAZOLE 40 MG/10 ML VIAL IV SCH (08:40)
[2023-05-23] MEDS: ENOXAPARIN 40 MG/0.4 ML SYRINGE SQ SCH (08:40)
[2023-05-23 09:38] LABS: Basophils # (A) 0.05 X 10*3/uL (0.00-0.10); Basophils % (A) 0.4 %; Eosinophils % (A) 0.8 %; HCT 46.7 % (39.6-50.0); HGB 16.3 g/dL (13.0-17.0); Lymphocytes # (A) 1.48 X 10*3/uL (0.90-5.00); MCH 33.3 pg (27.0-32.0); MCHC 34.9 g/dL (32.0-37.0); MCV 95.3 FL (80.0-97.0); Mean Platelet Volume 9.9 FL (9.5-12.2); Monocytes # (A) 0.97 X 10*3/uL (0.20-1.00); Monocytes % (A) 7.8 %; NRBC Per 100 WBC 0 X 10*3/uL (0.00-0.01); Neutrophils # (A) 9.67 X 10*3/uL (1.80-7.70); Neutrophils % (A) 78.3 %; Platelet Count 174 X 10*3/uL (140-440); RDW 11.9 % (11.5-14.5); WBC 12.36 X 10*3/uL (4.50-10.00)
[2023-05-23 09:58] LABS: ALT 16 U/L (10-49); AST 13 U/L (14-35); Albumin/Globulin Ratio 1.67 Ratio (1.60-3.17); Alkaline Phosphatase 95 U/L (41-126); BUN/Creat Ratio 31.57 Ratio (12.00-20.00); Bilirubin, Conjugated <0.20 mg/dL (0.20-0.40); Bilirubin,Unconjugated >0.40 mg/dL (0.20-1.00); Blood Urea Nitrogen 22.1 mg/dL (9.0-27.0); Carbon Dioxide 27.5 mmol/L (21.6-31.8); Chloride 102 mmol/L (96-109); Globulin 2.4 g/dL (1.6-3.3); Glucose 96 mg/dL (70-110); Magnesium 1.9 mg/dL (1.5-2.4); Potassium 4.2 mmol/L (3.5-5.5); Sodium 139 mmol/L (135-145); Total Bilirubin 0.6 mg/dL (0.3-1.2); Total Protein 6.4 g/dL (6.2-8.2)
[2023-05-23 12:18] LABS: Glucose,Whole Blood 75 mg/dL (70-110)
[2023-05-23] MEDS: LOSARTAN 50 MG TAB PO SCH (13:04)
--- NOTE | 2023-05-23 15:56 | P.PN ---
Subjective this is a pleasant 57 yo M WITH past medical hisotry of alcohol use disorder, recurrent pancreatitis , Diabetes Mellitus, GERD/Reflux he presents with abdominal pain pf one day duration as per pt , in the epigastrium radiating to the back about 10/10 in severity and with no associated vomiting or change in bowel habits , he had good bowel movements No change in urine habits. No dizziness. he denies chest pain, Patient denies any dyspnea No neurological complaints he is non smoker , he drinks a fifth of liqour with two beer and more everyday no illicit drugs he feel little short of breath no coughing ,no chest pain pt this is the 4th or 5th episode of alcoholic pancratitis vitals are stable labs is unermarkable CBC, BMP, LFT, INR troponin lipase is increased at 1240 cxr negative for acute process EKG; no significant st t changes 05/23/2023 His epigastric abdominal pain and tenderness improvement He wants to hold diet tomorrow morning, he wants to start breakfast tomorrow morning Distal and normal saline 150 mL per hour, pain medication area Continue with CIWA protocol. Patient counseled to quit drinking alcohol Objective - Vital Signs Vital signs: Vital Signs Temp 98.0 F 05/23/23 14:07 Pulse 92 05/23/23 14:07 Resp 18 05/23/23 14:07 BP 168/90 05/23/23 14:07 Pulse Ox 99 05/23/23 14:07 FiO2 Intake & Output 05/22/23 05/23/23 05/23/23 18:59 06:59 18:59 Weight 104.326 kg 104.326 kg Other: Voiding Method Toilet # Voids 1 - Exam GENERAL: The patient is alert and oriented x3, not in any acute distress. Well developed, well nourished. HEENT: Pupils are round and equally reacting to light. EOMI. No scleral icterus. No conjunctival pallor. Normocephalic, atraumatic. No pharyngeal erythema. No thyromegaly. CARDIOVASCULAR: S1 and S2 present. No murmurs, rubs, or gallops. PULMONARY: Chest is clear to auscultation, no wheezing , no crackles. -ABDOMEN: Soft, epigastric tenderness, no guarding, normoactive bowel sounds. No palpable organomegaly. MUSCULOSKELETAL: No joint swelling or deformity. EXTREMITIES: No cyanosis, clubbing, or pedal edema. NEUROLOGICAL: Gross neurological examination did not reveal any focal deficits. SKIN: No rashes. no petechiae. - Labs CBC & Chem 7: 05/23/23 07:00 05/23/23 07:00 Labs: Abnormal Lab Results - Last 24 Hours (Table) 05/22/23 05/22/23 05/22/23 Range/Units 18:36 18:36 18:36 WBC 16.8 H (3.8-10.6) k/uL MCH (27.0-32.0) pg Immature Gran # (0.00-0.04) X 10*3/uL Neutrophils # 12.4 H (1.3-7.7) k/uL APTT 21.2 L (22.0-30.0) sec Sodium 134 L (137-145) mmol/L BUN 25 H (9-20) mg/dL BUN/Creatinine Ratio (12.00-20.00) Ratio Glucose 112 H (74-99) mg/dL AST (14-35) U/L Lipase 1240 H (23-300) U/L 05/23/23 05/23/23 Range/Units 07:00 07:00 WBC 12.36 H (3.8-10.6) k/uL MCH 33.3 H (27.0-32.0) pg Immature Gran # 0.09 H (0.00-0.04) X 10*3/uL Neutrophils # 9.67 H (1.3-7.7) k/uL APTT (22.0-30.0) sec Sodium (137-145) mmol/L BUN (9-20) mg/dL BUN/Creatinine Ratio 31.57 H (12.00-20.00) Ratio Glucose (74-99) mg/dL AST 13 L (14-35) U/L Lipase (23-300) U/L
[2023-05-23] MEDS: hydrALAZINE HCL 20 MG/ML 1 ML VIAL IVP PRN (16:14)
[2023-05-23 17:50] LABS: Glucose,Whole Blood 75 mg/dL (70-110)
[2023-05-23 20:14] LABS: Glucose,Whole Blood 88 mg/dL (70-110)
[2023-05-23] MEDS: ACETAMINOPHEN TAB 325 MG TAB PO PRN (22:49)
[2023-05-24 06:46] LABS: Basophils % (A) 0 %; Eosinophils # (A) 0.2 k/uL (0-0.7); Eosinophils % (A) 2 %; HCT 43.3 % (39.0-53.0); HGB 14.7 gm/dL (13.0-17.5); Lymphocytes # (A) 1.1 k/uL (1.0-4.8); Lymphocytes % (A) 11 %; MCH 33.7 pg (25.0-35.0); MCHC 33.9 g/dL (31.0-37.0); MCV 99.3 fL (80.0-100.0); Mean Platelet Volume 7.2; Monocytes # (A) 0.5 k/uL (0-1.0); Monocytes % (A) 5 %; Neutrophils # (A) 8.7 k/uL (1.3-7.7); Neutrophils % (A) 82 %; Platelet Count 167 k/uL (150-450); RBC 4.37 m/uL (4.30-5.90); RDW 12.2 % (11.5-15.5); WBC 10.6 k/uL (3.8-10.6)
[2023-05-24 07:42] LABS: Glucose,Whole Blood 77 mg/dL (70-110)
--- NOTE | 2023-05-24 09:00 | P.PN ---
Subjective Progress Note Date: 05/24/23 Principal diagnosis: pancreastitis This is a 57-year-old male with a past medical history of alcohol abuse, recurrent pancreatitis, GERD and diabetes who presented to the emergency room with complaints of severe abdominal pain. He does admit to alcohol intake prior. Lipase elevated on admission and patient diagnosed with pancreatitis. Patient seen and evaluated sitting in chair at bedside this morning. He reports pain is improving and he does have an appetite. Blood sugars have been stable. Objective - Vital Signs Vital signs: Vital Signs Temp 98.4 F 05/24/23 07:48 Pulse 88 05/24/23 07:48 Resp 18 05/24/23 07:48 BP 180/79 05/24/23 07:48 Pulse Ox 95 05/24/23 07:48 FiO2 Intake & Output 05/23/23 05/24/23 05/24/23 18:59 06:59 18:59 Intake Total 1800 Balance 1800 Intake: Intake, IV Titration 1800 Amount Sodium Chloride 0.9% 1, 1800 000 ml @ 150 mls/hr IV . Q6H40M [facility] Rx#:[id number] Other: Voiding Method Toilet Toilet # Voids 3 - Constitutional General appearance: Present: cooperative, no acute distress - EENT Eyes: Present: PERRLA - Neck Neck: Present: normal ROM. Absent: lymphadenopathy, rigidity - Respiratory Respiratory: bilateral: CTA - Cardiovascular Rhythm: regular Heart sounds: normal: S1, S2 - Gastrointestinal General gastrointestinal: Present: soft, tenderness - Integumentary Integumentary: Present: normal, normal turgor - Psychiatric Psychiatric: Present: A&O x's 3, appropriate affect, intact judgment & insight - Labs CBC & Chem 7: 05/24/23 06:22 05/23/23 07:00 Labs: Abnormal Lab Results - Last 24 Hours (Table) 05/23/23 05/23/23 05/24/23 Range/Units 07:00 07:00 06:22 WBC 12.36 H (4.50-10.00) X 10*3/uL MCH 33.3 H (27.0-32.0) pg Immature Gran # 0.09 H (0.00-0.04) X 10*3/uL Neutrophils # 9.67 H 8.7 H (1.80-7.70) X 10*3/uL BUN/Creatinine Ratio 31.57 H (12.00-20.00) Ratio AST 13 L (14-35) U/L Assessment and Plan (1) Alcoholic pancreatitis Current Visit: Yes Status: Acute Code(s): K85.20 - ALCOHOL INDUCED ACUTE PANCREATITIS WITHOUT NECROSIS OR INFCT SNOMED Code(s): 670835876 (2) Abdominal pain Current Visit: No Status: Acute Code(s): R10.9 - UNSPECIFIED ABDOMINAL PAIN SNOMED Code(s): 77827689 (3) Diabetes Current Visit: No Status: Acute Code(s): E11.9 - TYPE 2 DIABETES MELLITUS WITHOUT COMPLICATIONS SNOMED Code(s): 01976040 (4) GERD (gastroesophageal reflux disease) Current Visit: Yes Status: Acute Code(s): K21.9 - GASTRO-ESOPHAGEAL REFLUX DISEASE WITHOUT ESOPHAGITIS SNOMED Code(s): 341050029 Plan: Will start patient on a clear liquid diet this morning. Order sliding scale insulin coverage Check CBC, CMP, amylase, lipase this morning and tomorrow Decrease IV fluids to 75 mL/hr Possible discharge in the next 24 to 48 hours Patient seen and evaluated by nurse practitioner, physician in agreement with plan
[2023-05-24 11:02] LABS: HCT 43.9 % (39.6-50.0); HGB 14.7 g/dL (13.0-17.0); MCH 32.7 pg (27.0-32.0); MCHC 33.5 g/dL (32.0-37.0); MCV 97.8 FL (80.0-97.0); Mean Platelet Volume 9.8 FL (9.5-12.2); NRBC Per 100 WBC 0 X 10*3/uL (0.00-0.01); Platelet Count 171 X 10*3/uL (140-440); RBC 4.49 X 10*6/uL (4.40-5.60); RDW 11.9 % (11.5-14.5); WBC 10.46 X 10*3/uL (4.50-10.00)
[2023-05-24 11:11] LABS: ALT 12 U/L (10-49); AST 16 U/L (14-35); Albumin 3.7 g/dL (3.8-4.9); Albumin/Globulin Ratio 1.61 Ratio (1.60-3.17); Alkaline Phosphatase 84 U/L (41-126); Amylase 124 U/L (23-121); BUN/Creat Ratio 28.71 Ratio (12.00-20.00); Blood Urea Nitrogen 20.1 mg/dL (9.0-27.0); Calcium 8.9 mg/dL (8.7-10.3); Carbon Dioxide 23.5 mmol/L (21.6-31.8); Chloride 102 mmol/L (96-109); Globulin 2.3 g/dL (1.6-3.3); Glucose 74 mg/dL (70-110); Lipase 113 U/L (14-60); Sodium 137 mmol/L (135-145); Total Bilirubin 0.9 mg/dL (0.3-1.2)
[2023-05-24 12:13] LABS: Glucose,Whole Blood 99 mg/dL (70-110)
[2023-05-24] MEDS: INSULIN ASPART (NovoLOG) 100 UNIT/ML VIAL SQ SCH (12:33)
[2023-05-24] MEDS: SODIUM CHLORIDE 0.9% 1,000 ML IV SCH (13:08)
[2023-05-24 17:06] LABS: Glucose,Whole Blood 126 mg/dL (70-110)
[2023-05-24 20:19] LABS: Glucose,Whole Blood 189 mg/dL (70-110)
[2023-05-25 07:18] LABS: Glucose,Whole Blood 80 mg/dL (70-110)
[2023-05-25 08:18] VITALS: RESP 18
--- NOTE | 2023-05-25 08:30 | P.DS ---
Providers Date of admission: 05/22/23 19:31 Attending physician: Bebo Kennedy Primary care physician: Bebo Kennedy - Discharge Diagnosis(es) (1) Alcoholic pancreatitis Current Visit: Yes Status: Acute (2) Abdominal pain Current Visit: No Status: Acute (3) Diabetes Current Visit: No Status: Acute (4) GERD (gastroesophageal reflux disease) Current Visit: Yes Status: Acute Hospital Course: This is a 57-year-old male with a past medical history of alcohol abuse, recurrent pancreatitis, GERD and diabetes who presented to the emergency room with a complaint of severe abdominal pain and was diagnosed with pancreatitis. Patient has a history of alcoholic pancreatitis. Pancreatic enzymes have trended down and patient tolerated clear liquids yesterday. Will start a low- fat diet this morning and be discharged if tolerating his diet. Patient reports abdominal pain is significantly improved and he is ready to go home. Patient seen and evaluated by nurse practitioner, physician in agreement with plan Patient Condition at Discharge: Stable Plan - Discharge Summary Discharge Rx Participant: No New Discharge Prescriptions: Continue Pantoprazole [Protonix] 40 mg PO DAILY Empagliflozin [Jardiance] 25 mg PO DAILY Insulin Aspart [NovoLOG Flexpen] See Protocol SQ AC-TID PRN PRN Reason: Blood Sugar - High Insulin Degludec [Tresiba Flextouch U-200 Pen] 46 units SQ DAILY Losartan Potassium 50 mg PO DAILY Discontinued methylPREDNISolone [Medrol Dose Pack] See Taper PO DIRECTED Discharge Medication List Pantoprazole [Protonix] 40 mg PO DAILY 12/02/15 [History] Empagliflozin [Jardiance] 25 mg PO DAILY 10/03/19 [History] Insulin Degludec [Tresiba Flextouch U-200 Pen] 46 units SQ DAILY 05/02/21 [History] Insulin Aspart [NovoLOG Flexpen] See Protocol SQ AC-TID PRN 09/23/21 [History] Losartan Potassium 50 mg PO DAILY 05/22/23 [History] Follow up Appointment(s)/Referral(s): Bebo Kennedy MD [Primary Care Provider] - 1 Week Patient Instructions/Handouts: Pancreatitis (DC), Abuse of Alcohol (DC) Activity/Diet/Wound Care/Special Instructions: low fat diet Discharge/Stand Alone Forms: AA Meetings [facility] 22 & 24 - [facility], AA Meetings [place], [facility], Outpatient Counseling Discharge Disposition: HOME SELF-CARE
[2023-05-25 11:43] LABS: HGB 13.9 g/dL (13.0-17.0); MCH 33.4 pg (27.0-32.0); MCHC 33.9 g/dL (32.0-37.0); MCV 98.6 FL (80.0-97.0); Mean Platelet Volume 9.9 FL (9.5-12.2); NRBC Per 100 WBC 0 X 10*3/uL (0.00-0.01); Platelet Count 162 X 10*3/uL (140-440); RBC 4.16 X 10*6/uL (4.40-5.60); RDW 11.9 % (11.5-14.5); WBC 7.64 X 10*3/uL (4.50-10.00)
[2023-05-25 11:58] LABS: Glucose,Whole Blood 186 mg/dL (70-110)
[2023-05-25 13:04] LABS: ALT 10 U/L (10-49); AST 12 U/L (14-35); Albumin 3.4 g/dL (3.8-4.9); Albumin/Globulin Ratio 1.55 Ratio (1.60-3.17); Alkaline Phosphatase 77 U/L (41-126); Amylase 83 U/L (23-121); BUN/Creat Ratio 20.29 Ratio (12.00-20.00); Blood Urea Nitrogen 14.2 mg/dL (9.0-27.0); Calcium 8.7 mg/dL (8.7-10.3); Chloride 102 mmol/L (96-109); Globulin 2.2 g/dL (1.6-3.3); Glucose 94 mg/dL (70-110); Lipase 134 U/L (14-60); Magnesium 2.1 mg/dL (1.5-2.4); Potassium 4.3 mmol/L (3.5-5.5); Sodium 137 mmol/L (135-145); Total Bilirubin 0.7 mg/dL (0.3-1.2); Total Protein 5.6 g/dL (6.2-8.2)
[2023-05-25 13:34] VITALS: BP 165/93; PULSE 87; TEMP 98
== END 2023-05-25 13:18 | disposition home or self-care (01) ==
LOC: EC 18:14 → 6NMEDSUR 19:31 → 5NMEDONC 21:33
PROVIDERS: ADMIT Family Medicine; ATTEND Family Medicine
DX: K85.20 Alcohol induced acute pancreatitis without necrosis or infection (principal); F10.10 Alcohol abuse, uncomplicated; E11.9 Type 2 diabetes mellitus without complications; I10 Essential (primary) hypertension; E66.9 Obesity, unspecified; Z68.32 Body mass index [BMI] 32.0-32.9, adult; K21.9 Gastro-esophageal reflux disease without esophagitis; Z79.4 Long term (current) use of insulin; Z79.84 Long term (current) use of oral hypoglycemic drugs; Z79.899 Other long term (current) drug therapy
CPT/HCPCS: 96376 ×4; 96361 ×5; 96372 ×4; 96375 ×2; 96374; 99285; 36415; 93005; 80053 ×3; 80048; 80076; 82150 ×2; 83690 ×3; 83735 ×3; 84484; 85025 ×3; 85027 ×2; 85610; 85730; 71045; G0378 ×5; J2060; J0360 ×3; J3411; J2405 ×2; J1650 ×3; J3490; J1170 ×2; C9113 ×3

== ENCOUNTER 2024-01-29 07:14 | Inpatient (IN) | payer BC ==
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
[2024-01-29] MEDS: SODIUM CHLORIDE 0.9% 1,000 ML IV STA (07:59)
[2024-01-29] MEDS: MORPHINE SULFATE 4 MG/ML SYRINGE IV STA (07:59)
[2024-01-29 08:00] LABS: Basophils % (A) 0 %; Eosinophils # (A) 0.2 k/uL (0-0.7); Eosinophils % (A) 2 %; Lymphocytes # (A) 1.3 k/uL (1.0-4.8); Lymphocytes % (A) 14 %; MCH 34.5 pg (25.0-35.0); MCHC 35.3 g/dL (31.0-37.0); MCV 97.8 fL (80.0-100.0); Mean Platelet Volume 6.9; Monocytes # (A) 0.4 k/uL (0-1.0); Monocytes % (A) 4 %; Neutrophils # (A) 7.3 k/uL (1.3-7.7); Neutrophils % (A) 79 %; Platelet Count 180 k/uL (150-450); RBC 4.91 m/uL (4.30-5.90); RDW 12.5 % (11.5-15.5); WBC 9.2 k/uL (3.8-10.6)
[2024-01-29 08:32] LABS: ALT 45 U/L (4-49); African American GFR (CKD) >90 (>60 ml/min/1.73 sqM); Albumin 4.6 g/dL (3.5-5.0); Alcohol <10 mg/dL; Anion Gap 9 mmol/L; Bilirubin, Delta 0.9 mg/dL (0.0-0.2); Bilirubin,Unconjugated 1.4 mg/dL (0.0-1.1); Blood Urea Nitrogen 18 mg/dL (9-20); Carbon Dioxide 23 mmol/L (22-30); Chloride 103 mmol/L (98-107); Glucose 141 mg/dL (74-99); Lipase 1300 U/L (23-300); Non-African American GFR(CKD) >90 (>60 ml/min/1.73 sqM); Sodium 135 mmol/L (137-145); Total Bilirubin 2.3 mg/dL (0.2-1.3); Total Protein 7.9 g/dL (6.3-8.2)
[2024-01-29] MEDS: HYDROmorphone 1 MG/ML 1 ML SYRINGE IVP STA ×2 (08:34→10:15)
[2024-01-29 08:57] LABS: AST 51 U/L (17-59); Alkaline Phosphatase 148 U/L (38-126); Potassium 5.2 mmol/L (3.5-5.1)
--- NOTE | 2024-01-29 10:34 | CT ---
EXAMINATION TYPE: CT abdomen pelvis w con DATE OF EXAM: 01/29/2024 COMPARISON: 05/12/2021 HISTORY: RUQ pain CT DLP: 1515 mGycm Automated exposure control for dose reduction was used. TECHNIQUE: Helical acquisition of images was performed from the lung bases through the pelvis. CONTRAST: Performed without Oral Contrast and with IV Contrast, patient injected with 100 mL of Isovue 300. FINDINGS: The lung bases are clear. The gallbladder is normal without distention, wall thickening, pericholecystic fluid or gallstones. T here is no biliary ductal dilatation. There is no focal mass or organomegaly involving the liver, pancreas, spleen or adrenal glands. There is fat stranding density around the pancreas consistent with acute pancreatitis. There is no pancrea tic cyst or mass. There is moderate hepatic steatosis. There is no solid renal mass or hydronephrosis and there is homogeneous contrast enhancement of the r enal parenchyma. The caliber the abdominal aorta is normal is no retroperitoneal adenopathy or hemorr rina. The bowel loops are normal in caliber and there is no evidence of dilatation or obstruction. No infla mmatory changes are identified in the bowel wall or mesentery. There is no free intraperitoneal air or fluid. No pelvic mass, free fluid, abscess or adenopathy. The osseous structures and soft tissues are intact. IMPRESSION: Findings consistent with acute pancreatitis without pancreatic pseudocyst [facility], , 01/29/2024 10:32 AM
--- NOTE | 2024-01-29 10:47 | US ---
EXAMINATION TYPE: US abdomen limited DATE OF EXAM: 01/29/2024 COMPARISON: US 2021 CLINICAL INDICATION: Male, 58 years old with history of ruq pain; RUQ pain x couple days TECHNIQUE: Grayscale and color Doppler imaging of the right upper quadrant was performed. FINDINGS: EXAM MEASUREMENTS: Liver Length: 16.1 cm Gallbladder Wall: 0.3 cm CBD: 0.4 cm Right Kidney: 11.8 x 5.9 x 5.0 cm Pancreas: obscured by overlying midline bowel gas Liver: course echotexture Gallbladder: visualized portions wnl, limited by overlying bowel gas Evidence for sonographic Jonas's sign: no CBD: visualized portions wnl, limited by overlying bowel gas Right Kidney: wnl IMPRESSION: 1. Normal gallbladder and biliary tree. 2. Pancreas obscured by bowel gas. 3. Coarsened liver echotexture possibly related to fatty infiltration or cirrhosis. [facility], Workstation: [facility], 01/29/2024 10:44 AM
[2024-01-29] MEDS ORDERED: LORazepam 2 MG/ML INJ IV PRN (11:34)
[2024-01-29] MEDS ORDERED: NALOXONE 0.4 MG/ML 1 ML VIAL IV PRN (11:34)
[2024-01-29] MEDS: SODIUM CHLORIDE 0.9% 1,000 ML IV SCH (11:58)
[2024-01-29] MEDS: hydrALAZINE HCL 20 MG/ML 1 ML VIAL IVP STA (12:00)
[2024-01-29] MEDS: HYDROmorphone 1 MG/ML 1 ML SYRINGE IVP PRN (12:01)
[2024-01-29] MEDS: LORazepam 2 MG/ML INJ IV PRN ×2 (13:38→21:05)
[2024-01-29] MEDS ORDERED: DEXTROSE 50% SYRINGE 50 ML IVP PRN ×2 (14:28)
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
[2024-01-29] MEDS: LOSARTAN 50 MG TAB PO SCH (14:54)
[2024-01-29 16:35] LABS: Glucose,Whole Blood 99 mg/dL (70-110)
[2024-01-29] MEDS: hydrALAZINE HCL 20 MG/ML 1 ML VIAL IVP PRN (17:07)
[2024-01-29] MEDS: INSULIN ASPART (NovoLOG) 100 UNIT/ML VIAL SQ SCH (18:23)
[2024-01-29 20:32] LABS: Glucose,Whole Blood 123 mg/dL (70-110)
[2024-01-29] MEDS: ATORVASTATIN 20 MG TAB PO SCH (21:04)
[2024-01-29] MEDS: INSULIN DETEMIR (LEVEMIR) 100 UNIT/ML SYR SQ SCH (21:40)
[2024-01-30] MEDS: ONDANSETRON 4 MG/2 ML VIAL IVP PRN (00:12)
[2024-01-30] MEDS: PANTOPRAZOLE 40 MG TABLET PO SCH (06:10)
[2024-01-30 06:30] LABS: Glucose,Whole Blood 157 mg/dL (70-110)
[2024-01-30] MEDS: DAPAGLIFLOZIN PROPANEDIOL 10 MG TABLET PO SCH (08:34)
[2024-01-30] MEDS ORDERED: LOSARTAN 50 MG TAB PO SCH (09:00)
[2024-01-30 09:46] LABS: Basophils # (A) 0.02 X 10*3/uL (0.00-0.10); Basophils % (A) 0.1 %; Eosinophils # (A) 0 X 10*3/uL (0.04-0.35); Eosinophils % (A) 0 %; HCT 48.2 % (39.6-50.0); HGB 15.8 g/dL (13.0-17.0); Lymphocytes % (A) 3.9 %; MCH 32.6 pg (27.0-32.0); MCHC 32.8 g/dL (32.0-37.0); MCV 99.4 FL (80.0-97.0); Mean Platelet Volume 10.1 FL (9.5-12.2); Monocytes # (A) 0.42 X 10*3/uL (0.20-1.00); Monocytes % (A) 2.7 %; NRBC Per 100 WBC 0 X 10*3/uL (0.00-0.01); Neutrophils # (A) 14.33 X 10*3/uL (1.80-7.70); Neutrophils % (A) 92.9 %; Platelet Count 208 X 10*3/uL (140-440); RBC 4.85 X 10*6/uL (4.40-5.60); RDW 12.7 % (11.5-14.5); WBC 15.43 X 10*3/uL (4.50-10.00)
[2024-01-30 10:00] LABS: ALT 32 U/L (10-49); AST 23 U/L (14-35); Albumin 4.5 g/dL (3.8-4.9); Albumin/Globulin Ratio 1.55 Ratio (1.60-3.17); Alkaline Phosphatase 151 U/L (41-126); BUN/Creat Ratio 26.43 Ratio (12.00-20.00); Blood Urea Nitrogen 18.5 mg/dL (9.0-27.0); Calcium 8.7 mg/dL (8.7-10.3); Carbon Dioxide 14.5 mmol/L (21.6-31.8); Chloride 101 mmol/L (96-109); Globulin 2.9 g/dL (1.6-3.3); Glucose 170 mg/dL (70-110); Sodium 134 mmol/L (135-145); Total Bilirubin 1.1 mg/dL (0.3-1.2); Total Protein 7.4 g/dL (6.2-8.2)
[2024-01-30] MEDS: FAMOTIDINE 20 MG/2 ML VIAL IV SCH (10:43)
[2024-01-30 12:08] LABS: Glucose,Whole Blood 103 mg/dL (70-110)
--- NOTE | 2024-01-30 12:43 | P.PN ---
Subjective Progress Note Date: 01/30/24 Patient is a 58-year-old gentleman with past medical history significant for alcohol abuse, diabetes mellitus, hypertension pancreatitis who presented the ER because of abdominal pain. Patient states that he was all right 1 day back when he started experiencing abdominal pain that was located in the right upper quadrant, abdominal pain was intermittent, nonradiating, no aggravating or relieving factors associated with this abdominal pain. Patient admits to drinking 1/5 of rum every day. Patient has history of prior episodes of pancreatitis and states that this pain was similar to his previous episodes. There was no complaint of fever or chills. There was no complaint of chest pain or shortness of breath. Because of his abdominal pain, patient came to the ER. Initial lab work done in the ER showed WBC 9.2, hemoglobin 17, platelet count 180, sodium 135, potassium 5.2, BUN 18, creatinine 0.63, glucose 141, bilirubin 2.3, AST 15, ALT of 145, lipase 1300 serum alcohol less than 10 Abdominal ultrasound done showed normal gallbladder and biliary tree, coarsened liver echotexture possibly due to fatty infiltration or cirrhosis CT abdominal pelvis done showed acute pancreatitis without pancreatic pseudocyst Patient admitted to internal medicine service 01/29. Patient seen and examined. Blood work showed WBC 15.43, hemoglobin 14.8, sodium 134, potassium 5, BUN is 18.5, creatinine 0.7, glucose is 170. Patient blood pressure has been elevated, is tachycardic. Abdominal pain has improved REVIEW OF SYSTEMS: CONSTITUTIONAL: No fever, no malaise,. CARDIOVASCULAR: No chest pain, no palpitations, no syncope. PULMONARY: No shortness of breath, no cough, GASTROINTESTINAL: No diarrhea, no nausea, no vomiting NEUROLOGICAL: No headaches, no weakness, PHYSICAL EXAMINATION: GENERAL: The patient is alert and oriented x3, not in any acute distress. Well developed, well nourished. HEENT: Pupils are round and equally reacting to light. EOMI. No scleral icterus. No conjunctival pallor. Normocephalic, atraumatic. No pharyngeal erythema. No thyromegaly. CARDIOVASCULAR: S1 and S2 present. No murmurs, rubs, or gallops. PULMONARY: Chest is clear to auscultation, no wheezing or crackles. ABDOMEN: Soft, nontender, nondistended, normoactive bowel sounds. No palpable organomegaly. MUSCULOSKELETAL: No joint swelling or deformity. EXTREMITIES: No cyanosis, clubbing, or pedal edema. NEUROLOGICAL: Gross neurological examination did not reveal any focal deficits. SKIN: No rashes. Assessment and plan Acute pancreatitis Alcohol abuse Hyponatremia Hyperkalemia Impending alcohol detox Insulin-dependent diabetes mellitus hypertension Monitor vital signs Monitor CBC Monitor CMP Continue telemetry monitoring Continue pain management with IV Dilaudid Continue sliding scale insulin Continue IV fluids Keep patient n.p.o. Consult surgery Labs and medication were reviewed.. Continue same treatment. Continue with symptomatic treatment. Resume home medication. Monitor labs and vitals. DVT and GI prophylaxis. Further recommendations as per clinical course of the patient Dictation was produced using [employer] dictation software. please excuse any grammatical, word or spelling errors. Objective - Vital Signs Vital signs: Vital Signs Temp 97.8 F 01/30/24 07:11 Pulse 112 H 01/30/24 07:11 Resp 18 01/30/24 07:11 BP 175/90 01/30/24 07:11 Pulse Ox 98 01/30/24 07:11 FiO2 Intake & Output 01/29/24 01/30/24 01/30/24 18:59 06:59 18:59 Weight 104.326 kg Other: # Voids 1 2 - Labs CBC & Chem 7: 01/30/24 02:28 01/30/24 02:28 Labs: Abnormal Lab Results - Last 24 Hours (Table) 01/29/24 01/30/24 01/30/24 Range/Units 20:30 02:28 02:28 WBC 15.43 H (4.50-10.00) X 10*3/uL MCV 99.4 H (80.0-97.0) FL MCH 32.6 H (27.0-32.0) pg Immature Gran # 0.06 H (0.00-0.04) X 10*3/uL Neutrophils # 14.33 H (1.80-7.70) X 10*3/uL Lymphocytes # 0.60 L (0.90-5.00) X 10*3/uL Eosinophils # 0 L (0.04-0.35) X 10*3/uL Sodium (135-145) mmol/L Carbon Dioxide (21.6-31.8) mmol/L Anion Gap (4.00-12.00) mmol/L BUN/Creatinine Ratio (12.00-20.00) Ratio Glucose (70-110) mg/dL POC Glucose (mg/dL) 123 H (70-110) mg/dL Hemoglobin A1c 7.3 H (<=6.0) % Alkaline Phosphatase (41-126) U/L Albumin/Globulin Ratio (1.60-3.17) Ratio 01/30/24 01/30/24 Range/Units 02:28 06:29 WBC (4.50-10.00) X 10*3/uL MCV (80.0-97.0) FL MCH (27.0-32.0) pg Immature Gran # (0.00-0.04) X 10*3/uL Neutrophils # (1.80-7.70) X 10*3/uL Lymphocytes # (0.90-5.00) X 10*3/uL Eosinophils # (0.04-0.35) X 10*3/uL Sodium 134 L (135-145) mmol/L Carbon Dioxide 14.5 L (21.6-31.8) mmol/L Anion Gap 18.50 H (4.00-12.00) mmol/L BUN/Creatinine Ratio 26.43 H (12.00-20.00) Ratio Glucose 170 H (70-110) mg/dL POC Glucose (mg/dL) 157 H (70-110) mg/dL Hemoglobin A1c (<=6.0) % Alkaline Phosphatase 151 H (41-126) U/L Albumin/Globulin Ratio 1.55 L (1.60-3.17) Ratio
[2024-01-30 16:56] LABS: Glucose,Whole Blood 109 mg/dL (70-110)
[2024-01-30 20:27] LABS: Glucose,Whole Blood 144 mg/dL (70-110)
[2024-01-31 06:46] LABS: Glucose,Whole Blood 88 mg/dL (70-110)
[2024-01-31 08:34] LABS: Basophils # (A) 0.03 X 10*3/uL (0.00-0.10); Basophils % (A) 0.3 %; Eosinophils # (A) 0.16 X 10*3/uL (0.04-0.35); Eosinophils % (A) 1.4 %; HCT 42.7 % (39.6-50.0); HGB 14.4 g/dL (13.0-17.0); Lymphocytes # (A) 1.08 X 10*3/uL (0.90-5.00); Lymphocytes % (A) 9.5 %; MCH 32.7 pg (27.0-32.0); MCHC 33.7 g/dL (32.0-37.0); Mean Platelet Volume 9.8 FL (9.5-12.2); Monocytes # (A) 0.62 X 10*3/uL (0.20-1.00); Monocytes % (A) 5.5 %; NRBC Per 100 WBC 0 X 10*3/uL (0.00-0.01); Neutrophils # (A) 9.38 X 10*3/uL (1.80-7.70); Neutrophils % (A) 82.9 %; Platelet Count 158 X 10*3/uL (140-440); RDW 12.4 % (11.5-14.5); WBC 11.32 X 10*3/uL (4.50-10.00)
--- NOTE | 2024-01-31 08:43 | P.PN ---
Subjective Progress Note Date: 01/31/24 This is a 58-year-old male with a history of alcohol abuse who presented to the emergency department with complaints of abdominal pain in the right upper quadrant. Lipase elevated on admission and CT of the abdomen shows acute pancreatitis. Patient reports that his pain has improved. He is tolerating a full liquid diet. Labs for today are not back yet. Objective - Vital Signs Vital signs: Vital Signs Temp 97.6 F 01/31/24 06:59 Pulse 105 H 01/31/24 06:59 Resp 17 01/31/24 06:59 BP 165/81 01/31/24 06:59 Pulse Ox 98 01/31/24 06:59 FiO2 Intake & Output 01/30/24 01/31/24 01/31/24 18:59 06:59 18:59 Other: # Voids 1 2 # Bowel Movements 1 - Constitutional General appearance: Present: cooperative, no acute distress - EENT Eyes: Present: PERRLA - Neck Neck: Present: normal ROM. Absent: lymphadenopathy, rigidity - Respiratory Respiratory: bilateral: CTA - Cardiovascular Rhythm: regular Heart sounds: normal: S1, S2 - Gastrointestinal General gastrointestinal: Present: soft. Absent: tenderness - Integumentary Integumentary: Present: normal, normal turgor - Psychiatric Psychiatric: Present: A&O x's 3 - Labs CBC & Chem 7: 01/31/24 03:39 01/30/24 02:28 Labs: Abnormal Lab Results - Last 24 Hours (Table) 01/30/24 01/30/24 01/30/24 Range/Units 02:28 02:28 02:28 WBC 15.43 H (4.50-10.00) X 10*3/uL MCV 99.4 H (80.0-97.0) FL MCH 32.6 H (27.0-32.0) pg Immature Gran # 0.06 H (0.00-0.04) X 10*3/uL Neutrophils # 14.33 H (1.80-7.70) X 10*3/uL Lymphocytes # 0.60 L (0.90-5.00) X 10*3/uL Eosinophils # 0 L (0.04-0.35) X 10*3/uL Sodium 134 L (135-145) mmol/L Carbon Dioxide 14.5 L (21.6-31.8) mmol/L Anion Gap 18.50 H (4.00-12.00) mmol/L BUN/Creatinine Ratio 26.43 H (12.00-20.00) Ratio Glucose 170 H (70-110) mg/dL POC Glucose (mg/dL) (70-110) mg/dL Hemoglobin A1c 7.3 H (<=6.0) % Alkaline Phosphatase 151 H (41-126) U/L Albumin/Globulin Ratio 1.55 L (1.60-3.17) Ratio 01/30/24 01/31/24 Range/Units 20:26 03:39 WBC 11.32 H (4.50-10.00) X 10*3/uL MCV (80.0-97.0) FL MCH 32.7 H (27.0-32.0) pg Immature Gran # 0.05 H (0.00-0.04) X 10*3/uL Neutrophils # 9.38 H (1.80-7.70) X 10*3/uL Lymphocytes # (0.90-5.00) X 10*3/uL Eosinophils # (0.04-0.35) X 10*3/uL Sodium (135-145) mmol/L Carbon Dioxide (21.6-31.8) mmol/L Anion Gap (4.00-12.00) mmol/L BUN/Creatinine Ratio (12.00-20.00) Ratio Glucose (70-110) mg/dL POC Glucose (mg/dL) 144 H (70-110) mg/dL Hemoglobin A1c (<=6.0) % Alkaline Phosphatase (41-126) U/L Albumin/Globulin Ratio (1.60-3.17) Ratio Assessment and Plan (1) Pancreatitis Current Visit: Yes Status: Acute Code(s): K85.90 - ACUTE PANCREATITIS WITHOUT NECROSIS OR INFECTION, UNSP SNOMED Code(s): 21236125 (2) Abdominal pain Current Visit: No Status: Acute Code(s): R10.9 - UNSPECIFIED ABDOMINAL PAIN SNOMED Code(s): 67086091 (3) Alcohol abuse Current Visit: Yes Status: Acute Code(s): F10.10 - ALCOHOL ABUSE, UNCOMPLICATED SNOMED Code(s): 03179730 (4) Hypertension Current Visit: Yes Status: Acute Code(s): I10 - ESSENTIAL (PRIMARY) HYPERTENSION SNOMED Code(s): 86397205 (5) Diabetes Current Visit: No Status: Acute Code(s): E11.9 - TYPE 2 DIABETES MELLITUS WITHOUT COMPLICATIONS SNOMED Code(s): 01221514 Plan: Await lab results for today. Patient seen and evaluated by nurse practitioner, physician in agreement with plan.
[2024-01-31 09:53] LABS: ALT 20 U/L (10-49); AST 18 U/L (14-35); Albumin 3.8 g/dL (3.8-4.9); Albumin/Globulin Ratio 1.46 Ratio (1.60-3.17); Alkaline Phosphatase 110 U/L (41-126); Calcium 8.5 mg/dL (8.7-10.3); Carbon Dioxide 15.5 mmol/L (21.6-31.8); Chloride 104 mmol/L (96-109); Globulin 2.6 g/dL (1.6-3.3); Glucose 119 mg/dL (70-110); Potassium 4.1 mmol/L (3.5-5.5); Sodium 134 mmol/L (135-145); Total Bilirubin 0.6 mg/dL (0.3-1.2); Total Protein 6.4 g/dL (6.2-8.2)
[2024-01-31 11:30] LABS: Glucose,Whole Blood 168 mg/dL (70-110)
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
[2024-01-31 13:57] VITALS: BP 161/81; PULSE 110; RESP 16; TEMP 98.2
[2024-01-31] MEDS: ACETAMINOPHEN TAB 325 MG TAB PO PRN (15:56)
[2024-01-31 16:28] LABS: Glucose,Whole Blood 146 mg/dL (70-110)
[2024-01-31 17:31] LABS: Amylase 41 U/L (30-110); Lipase 157 U/L (23-300)
--- NOTE | 2024-01-31 17:50 | P.DS ---
Providers Date of admission: 01/29/24 11:35 Attending physician: Bebo Kennedy Consults: 01/30/24 10:25 Consult Physician Routine Consulting Provider: Zac Serna Consult Reason/Comments: Pancreatitis Do you want consulting provider notified?: Yes Primary care physician: Bebo Kennedy Hospital Course: The patient is here essentially for significant problems related to recurrent pancreatitis. The patient was stabilized. CT scan did show acute pancreatitis. We spent a long time discussing alcoholism and treatment. The patient was stabilized and tolerating low-fat diet on discharge without pain amylase and lipase were nominal. Follow-up with me in 3 days Patient Condition at Discharge: Fair Plan - Discharge Summary New Discharge Prescriptions: New Lipase/Protease/Amylase [Parminder Barlow 12,000 Units Capsule] 12,000 units PO AC- TID #90 cap Continue Pantoprazole [Protonix] 40 mg PO DAILY Empagliflozin [Jardiance] 25 mg PO DAILY Insulin Aspart [NovoLOG Flexpen] See Protocol SQ TID-W/MEALS Insulin Degludec [Tresiba Flextouch U-200 Pen] 52 units SQ DAILY Losartan Potassium 50 mg PO DAILY Atorvastatin [Lipitor] 20 mg PO HS Discharge Medication List Pantoprazole [Protonix] 40 mg PO DAILY 12/02/15 [History] Empagliflozin [Jardiance] 25 mg PO DAILY 10/03/19 [History] Insulin Degludec [Tresiba Flextouch U-200 Pen] 52 units SQ DAILY 05/02/21 [History] Insulin Aspart [NovoLOG Flexpen] See Protocol SQ TID-W/MEALS 09/23/21 [History] Losartan Potassium 50 mg PO DAILY 05/22/23 [History] Atorvastatin [Lipitor] 20 mg PO HS 01/29/24 [History] Lipase/Protease/Amylase [Parminder Barlow 12,000 Units Capsule] 12,000 units PO AC-TID #90 cap 01/31/24 [Rx] Follow up Appointment(s)/Referral(s): Bebo Kennedy MD [Primary Care Provider] - 1-2 days Discharge/Stand Alone Forms: AA Meetings [facility], Outpatient Counseling, Inp Substance Abuse Facilities
[2024-01-31 19:09] LABS: Amylase 136 U/L (23-121); Lipase 185 U/L (14-60)
== END 2024-01-31 18:02 | disposition home or self-care (01) | DRG 439 ==
LOC: EC 07:14 → 5NMEDONC 11:35 → 4SSUR 16:33
PROVIDERS: ADMIT Family Medicine; ATTEND Family Medicine
DX: K85.20 Alcohol induced acute pancreatitis without necrosis or infection (principal); E87.1 Hypo-osmolality and hyponatremia; E11.42 Type 2 diabetes mellitus with diabetic polyneuropathy; F10.20 Alcohol dependence, uncomplicated; Z79.4 Long term (current) use of insulin; I10 Essential (primary) hypertension; E87.5 Hyperkalemia; Y90.0 Blood alcohol level of less than 20 mg/100 ml; Z79.84 Long term (current) use of oral hypoglycemic drugs; Z79.899 Other long term (current) drug therapy
CPT/HCPCS: 36415; 74177; 76705; 80053; 80320; 82150; 82248; 83036; 83690; 85025; 93005; 96361; 96374; 96375; 96376; 99285

== ENCOUNTER 2024-03-28 18:32 | Emergency (ER) | payer BC ==
[2024-03-28 18:47] VITALS: RESP 18; TEMP 98.5
[2024-03-28 19:57] LABS: Basophils # (A) 0.1 k/uL (0-0.2); Basophils % (A) 1 %; Eosinophils # (A) 0.4 k/uL (0-0.7); Eosinophils % (A) 4 %; HCT 46.3 % (39.0-53.0); HGB 15.9 gm/dL (13.0-17.5); Lymphocytes # (A) 2.7 k/uL (1.0-4.8); Lymphocytes % (A) 26 %; MCH 32.6 pg (25.0-35.0); MCHC 34.4 g/dL (31.0-37.0); MCV 94.7 fL (80.0-100.0); Monocytes # (A) 0.3 k/uL (0-1.0); Monocytes % (A) 3 %; Neutrophils # (A) 6.7 k/uL (1.3-7.7); Neutrophils % (A) 65 %; Platelet Count 208 k/uL (150-450); RBC 4.89 m/uL (4.30-5.90); RDW 12.7 % (11.5-15.5); WBC 10.3 k/uL (3.8-10.6)
--- NOTE | 2024-03-28 20:02 | XR ---
EXAMINATION TYPE: XR chest 2V DATE OF EXAM: 03/28/2024 7:59 PM COMPARISON: Previous chest radiograph 05/22/2023. CLINICAL INDICATION: Male, 58 years old with history of Chest Pain; [facility] TECHNIQUE: XR chest 2V Frontal and lateral views of the chest. FINDINGS: Lungs/Pleura: There is no evidence of pleural effusion, focal consolidation, or pneumothorax. Pulmonary vascularity: Unremarkable. Heart/mediastinum: Cardiomediastinal silhouette is unremarkable. Musculoskeletal: No acute osseous pathology. Other findings: None IMPRESSION: No acute cardiopulmonary disease/process. [facility], , 03/28/2024 8:00 PM
[2024-03-28 20:05] LABS: ALT 22 U/L (4-49); AST 23 U/L (17-59); African American GFR (CKD) >90 (>60 ml/min/1.73 sqM); Albumin 4.7 g/dL (3.5-5.0); Alkaline Phosphatase 118 U/L (38-126); Anion Gap 15 mmol/L; Blood Urea Nitrogen 14 mg/dL (9-20); Calcium 9.4 mg/dL (8.4-10.2); Carbon Dioxide 20 mmol/L (22-30); Chloride 104 mmol/L (98-107); Glucose 213 mg/dL (74-99); Non-African American GFR(CKD) >90 (>60 ml/min/1.73 sqM); Potassium 4.1 mmol/L (3.5-5.1); Sodium 139 mmol/L (137-145); Total Bilirubin 0.5 mg/dL (0.2-1.3); Total Protein 7.5 g/dL (6.3-8.2)
[2024-03-28 20:06] LABS: INR 0.9 (<1.2); Partial Thromboplastin Time 22.9 sec (22.0-30.0)
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
[2024-03-28] MEDS: SODIUM CHLORIDE 0.9% 1,000 ML IV ONE (21:20)
[2024-03-28] MEDS: HYDROmorphone 1 MG/ML 1 ML SYRINGE IVP STA (21:20)
[2024-03-28] MEDS: SODIUM CHLORIDE 0.9% 1,000 ML IV STA (21:21)
[2024-03-28 22:16] LABS: Amylase 59 U/L (30-110)
[2024-03-28 22:22] LABS: Alcohol 109 mg/dL
[2024-03-28] MEDS: LORazepam 2 MG/ML INJ IV STA (22:35)
[2024-03-28] MEDS: HYDROmorphone 0.5 MG/0.5 ML SYRINGE IVP STA (22:35)
[2024-03-28] MEDS: SODIUM CHLORIDE 0.9% 500 ML 500 ML IV STA (22:39)
[2024-03-29 00:16] LABS: Appearance,Urine Clear (Clear); Bilirubin,Urine Negative (Negative); Blood,Urine Negative (Negative); Color,Urine Colorless; Glucose,Urine (UA) 4+ (Negative); Ketones,Urine Negative (Negative); Leukocyte Esterase,Urine Negative (Negative); Nitrite,Urine Negative (Negative); Protein,Urine Negative (Negative); Specific Gravity,Urine 1.045 (1.001-1.035); Urobilinogen,Urine <2.0 mg/dL (<2.0)
[2024-03-29 01:00] VITALS: BP 155/81; PULSE 87
== END 2024-03-29 01:00 | disposition home or self-care (01) ==
LOC: EC 18:32
DX: K85.90 Acute pancreatitis without necrosis or infection, unspecified (principal); F10.10 Alcohol abuse, uncomplicated
CPT/HCPCS: 36415; 93005; 80053; 82150; 83690; 84484; 85025; 85610; 85730; 81003; 80320; 71046; 99285; 96374; 96375; 96376; 96361 ×4; J2060; J1171 ×2